=== PATIENT | female | born 1940 | race Caucasian/White ===

== ENCOUNTER 2019-11-24 07:38 | Inpatient (IN) | payer MEDICARE, BC ==
[2019-11-24] MEDS ORDERED: SODIUM CHLORIDE 0.9% 1,000 ML IV STA (07:58)
[2019-11-24] MEDS ORDERED: FUROSEMIDE 10 MG/ML 4 ML VIAL IV STA (07:58)
[2019-11-24] MEDS ORDERED: NITROGLYCERIN-D5W PMX 50 MG in DEXTROSE/WATER 1 250ML.BAG IV STA (07:58)
[2019-11-24] MEDS ORDERED: ASPIRIN 81 MG PO STA (07:59)
[2019-11-24] MEDS ORDERED: HEPARIN SODIUM,PORCINE 5,000 UNIT/ML 1 ML VIAL IV ONE (07:59)
[2019-11-24] MEDS ORDERED: NITROGLYCERIN SL TABS 0.4 MG TAB SUBLINGUAL PRN (07:59)
--- NOTE | 2019-11-24 08:03 | ED ---
General Adult HPI - General Chief complaint: Shortness of Breath Stated complaint: AFib Time Seen by Provider: 11/24/19 07:40 Source: patient, EMS Mode of arrival: EMS Limitations: no limitations - History of Present Illness Initial comments: Dictation was produced using [employer] dictation software. please excuse any grammatical, word or spelling errors. This patient was cared for during a federal and state declared state of emergency secondary to Covid 19 Chief Complaint: 79-year-old female past medical history of COPD, dyslipidemia and hypertension presents with dyspnea History of Present Illness: Patient is 71-year-old female she has been dealing with dyspnea for the last several months. Today her dyspnea was exponentially w orse. Her son called EMS. EMS was not available at time of patient evaluation. According to nurse received report from EMS patient has been having shortness of breath those acutely worsening over the last 2 days. Patient reports she has a history of COPD. Denies any fever, chills or night sweats. She does report that her lower extremity swelling. States that her symptoms are worse with lyin g flat. She does have some mild sharp chest pain is worse with deep inspiration. The ROS documented in this emergency department record has been reviewed and confirmed by me. Those systems with pertinent positive or negative responses have been documented in the HPI. All other systems are other negative and/or noncontributory. PHYSICAL EXAM: General Impression: Alert and oriented x3, dyspneic HEENT: Normocephalic atraumatic, extra-ocular movements intact, pupils equal and reactive to light bilaterally, mucous membranes moist. Cardiovascular: Heart regular rate and rhythm, no murmurs Chest: Tripoding, diffuse lung crackles, able to complete 3 word sentences Abdomen: abdomen soft, non-tender, non-distended, no organomegaly Musculoskeletal: Pulses present and equal in all extremities, 1+ pitting edema Motor: no focal deficits noted Neurological: CN II-XII grossly intact, no focal motor or sensory deficits noted Skin: Intact with no visualized rashes Psych: Anxious ED course: 79-year-old female with chief complaint of dyspnea. Vital signs upon arrival shows heart rate of 135, blood pressure 173/100. Clinical presentation concerning for acute decompensated heart failure. Plan care bedside ultrasound was performed showing diffuse lung rockets concerning for heart failure. Patient placed on BiPAP immediately. She is given Lasix and nitro glycerin. EKG concerning for atrial fibrillation with rapid ventricular rate. Patient denies any history of A. fib. She does not take any anticoagulation medications. Patient started on heparin. There is concern for new onset atrial fibrillation. Patient has elevated Chadsvasc2 score. X-rays show findings of congestive heart failure. Patient reevaluated after 2 hours of ER observation after administration of nitroglycerin. Patient is breathing much better. She still however tachycardic. Patient will be started on Cardizem. Patient admitted to cardiac telemetry. Cardiology consult. EKG interpretation: Ventricular rate 142, H fibrillation rapid ventricular rate, QRS 82, QTc 464. No NC prolongation, no QTC prolongation, no ST or T-wave changes noted. No old EKG for comparison - Related Data Allergies Allergy/AdvReac Type Severity Reaction Status Date / Time aspirin Allergy Rash/Hives Verified 11/24/19 07:58 shellfish derived [Shellfish] Allergy Rash/Hives Verified 11/24/19 07:58 Review of Systems ROS Statement: Those systems with pertinent positive or pertinent negative responses have been documented in the HPI. ROS Other: All systems not noted in ROS Statement are negative. Past Medical History Past Medical History: COPD, Hyperlipidemia, Hypertension Past Psychological History: No Psychological Hx Reported Smoking Status: Unknown if ever smoked Past Alcohol Use History: None Reported Past Drug Use History: None Reported General Exam Limitations: no limitations Course Vital Signs 11/24/19 11/24/19 11/24/19 07:50 07:54 08:34 Temperature 97.4 F L Pulse Rate 135 H 135 H Respiratory 22 20 22 Rate Blood Pressure 173/100 149/71 O2 Sat by Pulse 99 99 Oximetry Medical Decision Making - Lab Data Result diagrams: 11/24/19 08:40 11/24/19 08:40 Lab Results 11/24/19 11/24/19 11/24/19 Range/Units 08:40 08:40 08:40 WBC 8.3 (3.8-10.6) k/uL RBC 3.76 L (3.80-5.40) m/uL Hgb 10.3 L (11.4-16.0) gm/dL Hct 34.6 (34.0-46.0) % MCV 91.8 (80.0-100.0) fL MCH 27.3 (25.0-35.0) pg MCHC 29.7 L (31.0-37.0) g/dL RDW 14.8 (11.5-15.5) % Plt Count 385 (150-450) k/uL Neutrophils % 73 % Lymphocytes % 18 % Monocytes % 5 % Eosinophils % 2 % Basophils % 1 % Neutrophils # 6.1 (1.3-7.7) k/uL Lymphocytes # 1.5 (1.0-4.8) k/uL Monocytes # 0.5 (0-1.0) k/uL Eosinophils # 0.1 (0-0.7) k/uL Basophils # 0.1 (0-0.2) k/uL Hypochromasia Marked PT 12.2 H (9.0-12.0) sec INR 1.2 H (<1.2) APTT 61.0 H (22.0-30.0) sec Sodium 142 (137-145) mmol/L Potassium 4.2 (3.5-5.1) mmol/L Chloride 103 (98-107) mmol/L Carbon Dioxide 28 (22-30) mmol/L Anion Gap 11 mmol/L BUN 23 H (7-17) mg/dL Creatinine 1.01 (0.52-1.04) mg/dL Est GFR (CKD-EPI)AfAm 62 (>60 ml/min/1.73 sqM) Est GFR (CKD-EPI)NonAf 54 (>60 ml/min/1.73 sqM) Glucose 224 H (74-99) mg/dL Plasma Lactic Acid Jovanni (0.7-2.0) mmol/L Calcium 9.1 (8.4-10.2) mg/dL Magnesium 1.7 (1.6-2.3) mg/dL Total Bilirubin 0.4 (0.2-1.3) mg/dL AST 27 (14-36) U/L ALT 15 (4-34) U/L Alkaline Phosphatase 36 L (38-126) U/L NT-Pro-B Natriuret Pep pg/mL Total Protein 7.8 (6.3-8.2) g/dL Albumin 4.5 (3.5-5.0) g/dL 11/24/19 11/24/19 Range/Units 08:40 08:40 WBC (3.8-10.6) k/uL RBC (3.80-5.40) m/uL Hgb (11.4-16.0) gm/dL Hct (34.0-46.0) % MCV (80.0-100.0) fL MCH (25.0-35.0) pg MCHC (31.0-37.0) g/dL RDW (11.5-15.5) % Plt Count (150-450) k/uL Neutrophils % % Lymphocytes % % Monocytes % % Eosinophils % % Basophils % % Neutrophils # (1.3-7.7) k/uL Lymphocytes # (1.0-4.8) k/uL Monocytes # (0-1.0) k/uL Eosinophils # (0-0.7) k/uL Basophils # (0-0.2) k/uL Hypochromasia PT (9.0-12.0) sec INR (<1.2) APTT (22.0-30.0) sec Sodium (137-145) mmol/L Potassium (3.5-5.1) mmol/L Chloride (98-107) mmol/L Carbon Dioxide (22-30) mmol/L Anion Gap mmol/L BUN (7-17) mg/dL Creatinine (0.52-1.04) mg/dL Est GFR (CKD-EPI)AfAm (>60 ml/min/1.73 sqM) Est GFR (CKD-EPI)NonAf (>60 ml/min/1.73 sqM) Glucose (74-99) mg/dL Plasma Lactic Acid Jovanni 0.8 (0.7-2.0) mmol/L Calcium (8.4-10.2) mg/dL Magnesium (1.6-2.3) mg/dL Total Bilirubin (0.2-1.3) mg/dL AST (14-36) U/L ALT (4-34) U/L Alkaline Phosphatase (38-126) U/L NT-Pro-B Natriuret Pep 7190 pg/mL Total Protein (6.3-8.2) g/dL Albumin (3.5-5.0) g/dL Critical Care Time Critical Care Time: Yes Total Critical Care Time: 33 Disposition Clinical Impression: Heart failure, Afib Disposition: ADMITTED IP TO THIS HOSP Condition: Fair Referrals: Ajit Osman MD [Primary Care Provider] - 1-2 days Decision Time: 09:32
[2019-11-24] MEDS: HEPARIN SOD,PORK IN 0.45% NACL 25,000 UNIT in 0.45% NACL 1 250ML.BAG IV SCH (08:24)
[2019-11-24 08:55] LABS: Basophils # (A) 0.1 k/uL (0-0.2); Basophils % (A) 1 %; Eosinophils # (A) 0.1 k/uL (0-0.7); Eosinophils % (A) 2 %; HCT 34.6 % (34.0-46.0); HGB 10.3 gm/dL (11.4-16.0); Hypochromasia Marked; Lymphocytes # (A) 1.5 k/uL (1.0-4.8); Lymphocytes % (A) 18 %; MCH 27.3 pg (25.0-35.0); MCHC 29.7 g/dL (31.0-37.0); MCV 91.8 fL (80.0-100.0); Monocytes # (A) 0.5 k/uL (0-1.0); Monocytes % (A) 5 %; Neutrophils # (A) 6.1 k/uL (1.3-7.7); Neutrophils % (A) 73 %; Platelet Count 385 k/uL (150-450); RBC 3.76 m/uL (3.80-5.40); RDW 14.8 % (11.5-15.5); WBC 8.3 k/uL (3.8-10.6)
[2019-11-24 09:03] LABS: INR 1.2 (<1.2); Prothrombin Time 12.2 sec (9.0-12.0)
[2019-11-24 09:18] LABS: Albumin 4.5 g/dL (3.5-5.0); Calcium 9.1 mg/dL (8.4-10.2); Magnesium 1.7 mg/dL (1.6-2.3); Potassium 4.2 mmol/L (3.5-5.1); Total Bilirubin 0.4 mg/dL (0.2-1.3); Total Protein 7.8 g/dL (6.3-8.2)
--- NOTE | 2019-11-24 09:19 | XR ---
EXAMINATION TYPE: XR chest 1V portable DATE OF EXAM: 11/24/2019 COMPARISON: NONE HISTORY: Dyspnea, shortness breath TECHNIQUE: Single frontal view of the chest is obtained. FINDINGS: Patient is rotated however suspect the heart is enlarged. Prominence and central vasculari ty and interstitium is noted. There is no pneumothorax. Bibasilar increased density with blunting the costophrenic angles is noted. Aorta is dense. IMPRESSION: Correlate for congestive heart failure. There may be basilar effusions. Follow-up recomm ended.
[2019-11-24] MEDS ORDERED: DILTIAZEM 125 MG in SODIUM CHLORIDE 0.9% 100 ML IV SCH (09:30)
[2019-11-24] MEDS: METOPROLOL TARTRATE 50 MG TAB PO SCH (14:17)
--- NOTE | 2019-11-24 14:19 | P.HPIM ---
History of Present Illness patient is a pleasant 73-year-old female came in with compensative shortness of breath orthopnea has been going on for a few months. I'm unable to get much of the history from the patient has patient is on BiPAP. Patient is complaining of cough without any significant sputum production. Patient had any fever chills. Patient doesn't have any sick and past medical history of heart failure patient does have elevated the BMP along with the bilateral pleural effusions and pulmonary edema changes in the chest x-ray patient is found to be tachycardic as well appears to have A. fib with rapid ventricular rate was started on Cardizem which will be tapered down and weaned off by adding metoprolol. Patient was hypertensivearrival to ER because of which patient was started on nitroglycerin drip she denied any chest pain to me. Apparently on admission patient was having sharp chest pain with deep breathing, EKG did not show any acute ST-T wave changes but tachycardic which is probably A. fib SINUS tach with the PVCs. Review of Systems except for those mentioned above rest of the review of systems is negative unable to obtain much of the review of system because of her clinical condition Past Medical History Past Medical History: COPD, Hyperlipidemia, Hypertension Past Psychological History: No Psychological Hx Reported Smoking Status: Unknown if ever smoked Past Alcohol Use History: None Reported Past Drug Use History: None Reported Medications and Allergies Allergies Allergy/AdvReac Type Severity Reaction Status Date / Time aspirin Allergy Rash/Hives Verified 11/24/19 07:58 shellfish derived [Shellfish] Allergy Rash/Hives Verified 11/24/19 07:58 Physical Exam Vitals: Vital Signs Temp Pulse Resp BP Pulse Ox 11/24/19 14:02 111 H 18 112/53 99 11/24/19 13:27 125 H 18 117/81 99 11/24/19 11:00 103 H 18 117/69 100 11/24/19 10:30 114 H 22 96/61 100 11/24/19 10:00 113 H 20 110/70 100 11/24/19 09:30 124 H 12 127/70 99 11/24/19 09:00 125 H 20 149/71 98 11/24/19 08:34 135 H 22 149/71 99 11/24/19 08:30 123 H 140/72 99 11/24/19 08:00 131 H 29 H 173/100 100 11/24/19 07:54 20 11/24/19 07:50 97.4 F L 135 H 22 173/100 99 11/24/19 07:49 97 Intake and Output 11/23/19 11/24/19 11/24/19 22:59 06:59 14:59 Output Total 400 Balance -400 Output: Urine 400 Other: Weight 74.843 kg PHYSICAL EXAMINATION: GENERAL: The patient is alert and oriented x3,is in mild acute distress. Well de veloped, well nourished. on BiPAP HEENT: Pupils are round and equally reacting to light. EOMI. No scleral icterus. No conjunctival pallor. Normocephalic, atraumatic. No pharyngeal erythema. No thyromegaly. CARDIOVASCULAR: S1 and S2 present. No murmurs, rubs, or gallops. number does have JVD PULMONARY: bibasilar crackles crackles without any wheezing. ABDOMEN: Soft, nontender, nondistended, normoactive bowel sounds. No palpable organomegaly. MUSCULOSKELETAL: No joint swelling or deformity. EXTREMITIES: No cyanosis, clubbing, or pedal edema. NEUROLOGICAL: Gross neurological examination did not reveal any focal deficits. SKIN: No rashes. Results CBC & Chem 7: 11/24/19 08:40 11/24/19 08:40 Labs: Abnormal Lab Results - Last 24 Hours (Table) 11/24/19 11/24/19 11/24/19 Range/Units 08:40 08:40 08:40 RBC 3.76 L (3.80-5.40) m/uL Hgb 10.3 L (11.4-16.0) gm/dL MCHC 29.7 L (31.0-37.0) g/dL PT 12.2 H (9.0-12.0) sec INR 1.2 H (<1.2) APTT 61.0 H (22.0-30.0) sec BUN 23 H (7-17) mg/dL Glucose 224 H (74-99) mg/dL Alkaline Phosphatase 36 L (38-126) U/L Troponin I (0.000-0.034) ng/mL 11/24/19 11/24/19 Range/Units 08:40 13:48 RBC (3.80-5.40) m/uL Hgb (11.4-16.0) gm/dL MCHC (31.0-37.0) g/dL PT (9.0-12.0) sec INR (<1.2) APTT 32.0 H (22.0-30.0) sec BUN (7-17) mg/dL Glucose (74-99) mg/dL Alkaline Phosphatase (38-126) U/L Troponin I 0.057 H* (0.000-0.034) ng/mL Assessment and Plan Plan: -acute hypoxic respiratory failure most probably secondary to start failure exacerbation echocardiogram will be obtained.she is presently on BiPAP which will be weaned of elevated troponin probably second to heart failure and atrial fibrillation: Patient is on heparin drip. Cardiology was consulted patient received aspirin -Possible new onset atrial fibrillation with rapid ventricular rate: Patient was started on metoprolol enough Cardizem there is a concern started dysfunction. At present will be discontinued as well -Hypertension patient is presently hypotensive -hyperlipidemia
[2019-11-24] MEDS: HEPARIN SODIUM,PORCINE 5,000 UNIT/ML 1 ML VIAL IV PRN (15:33)
[2019-11-24 16:23] LABS: Glucose,Whole Blood 130 mg/dL (75-99)
[2019-11-24] MEDS ORDERED: ALBUTEROL NEBULIZED 2.5 MG/3 ML INHALATION PRN (17:18)
[2019-11-24] MEDS ORDERED: FLUTICASONE 50MCG/SPRAY NASAL 16GM EA NOSTRIL PRN (17:18)
[2019-11-24] MEDS: GLIMEPIRIDE 2 MG TAB PO SCH (17:43)
[2019-11-24 18:12] LABS: Allen Test Performed? Yes
[2019-11-24 18:14] LABS: ABG Base Excess 5.9 mmol/L; ABG HCO3 33 mmol/L (21-25); ABG Oxygen Saturation 97.6 % (94-97); ABG PH 7.26 (7.35-7.45); ABG PO2 103 mmHg (83-108); ABG TCO2 35 mmol/L (19-24)
[2019-11-24 18:18] LABS: ABG PCO2 75 mmHg (35-45)
[2019-11-24 20:12] LABS: Glucose,Whole Blood 160 mg/dL (75-99)
[2019-11-24] MEDS: PRAVASTATIN SODIUM 40 MG TAB PO SCH ×2 (20:44→22:36)
[2019-11-24] MEDS: FAMOTIDINE 20 MG TAB PO SCH ×2 (20:44→22:36)
[2019-11-24] MEDS ORDERED: FUROSEMIDE 10 MG/ML 4 ML VIAL IV SCH (21:00)
[2019-11-24] MEDS ORDERED: NON FORMULARY DRUG (Omega-3 Fatty Acids [Omega-3] 1,000 MG) PO SCH (21:00)
[2019-11-24] MEDS ORDERED: LISINOPRIL 10 MG TAB PO STA (21:54)
[2019-11-24] MEDS: INSULIN ASPART (NovoLOG) 100 UNIT/ML VIAL SQ SCH (22:00)
[2019-11-24] MEDS: FUROSEMIDE 100 MG in SODIUM CHLORIDE 0.9% 90 ML IV SCH (22:28)
[2019-11-25 05:59] LABS: Glucose,Whole Blood 65 mg/dL (75-99)
[2019-11-25] MEDS ORDERED: DEXTROSE 50% SYRINGE 50 ML IVP ONE (06:12)
[2019-11-25] MEDS: INSULIN ASPART (NovoLOG) 100 UNIT/ML VIAL SQ SCH ×4 (06:18→20:55)
[2019-11-25] MEDS: GLIMEPIRIDE 2 MG TAB PO SCH ×2 (06:18→16:08)
[2019-11-25 06:28] LABS: Glucose,Whole Blood 186 mg/dL (75-99)
[2019-11-25] MEDS: FAMOTIDINE 20 MG TAB PO SCH (07:44)
[2019-11-25] MEDS: FENOFIBRATE 160 MG TAB PO SCH (07:44)
[2019-11-25] MEDS: LISINOPRIL 10 MG TAB PO SCH (07:44)
[2019-11-25] MEDS: HEPARIN SOD,PORK IN 0.45% NACL 25,000 UNIT in 0.45% NACL 1 250ML.BAG IV SCH (07:45)
[2019-11-25] MEDS: FERROUS SULFATE 325 MG TAB PO SCH (07:45)
[2019-11-25] MEDS: LACTOBACILLUS ACIDOPH & BULGAR 1 EACH PACKET PO SCH (07:45)
[2019-11-25] MEDS: METOPROLOL TARTRATE 50 MG TAB PO SCH ×2 (07:45→20:59)
[2019-11-25] MEDS: ASPIRIN 81 MG PO SCH (07:45)
[2019-11-25] MEDS: IPRATROPIUM 0.5 MG/2.5 ML NEBU INHALATION SCH ×4 (08:16→20:25)
[2019-11-25] MEDS: FUROSEMIDE 100 MG in SODIUM CHLORIDE 0.9% 90 ML IV SCH ×3 (08:21→22:58)
[2019-11-25 08:35] LABS: HCT 33.3 % (34.0-46.0); HGB 9.7 gm/dL (11.4-16.0); Hypochromasia Marked; MCH 26.4 pg (25.0-35.0); MCHC 29.2 g/dL (31.0-37.0); MCV 90.6 fL (80.0-100.0); Mean Platelet Volume 7.4; Platelet Count 304 k/uL (150-450); RBC 3.67 m/uL (3.80-5.40); RDW 14.9 % (11.5-15.5); WBC 7.7 k/uL (3.8-10.6)
[2019-11-25 08:43] LABS: Calcium 9.1 mg/dL (8.4-10.2); Potassium 4.1 mmol/L (3.5-5.1)
[2019-11-25] MEDS ORDERED: CALCIUM CARBONATE PO SCH (09:00)
[2019-11-25] MEDS ORDERED: VITAMIN D3 PO SCH (09:00)
[2019-11-25] MEDS: HEPARIN SODIUM,PORCINE 5,000 UNIT/ML 1 ML VIAL IV PRN (09:31)
--- NOTE | 2019-11-25 09:40 | P.CNPUL ---
History of Present Illness Consult date: 11/25/19 Requesting physician: Jonah Dye Reason for consult: dyspnea Chief complaint: shortness of breath History of present illness: 79-year-old white female patient with known history of chronic obstructive pulmonary disease on home oxygen at 2-1/2 L/m, previous history of smoking, diabetes mellitus type 2, previous episode of pneumonia, hypertension, hyperlipidemia, GERD/reflux, with recent history of hospitalization at [facility] in the beginning of September for bilateral pneumonia, and small bilateral pleural effusions. Patient was treated with Rocephin and azithromycin during admission. On 11/24/2019 patient presented to this hospital for evaluation of shortness of breath. admission chest x-ray showed prominence and central vascularity and increased interstitium, and bilateral pleural effusions. she was hypoxic, she was placed on 6 L of oxygen and subsequently on BiPAP support at pressures of 12 and 5 and FiO2 of 40%. patient was in A. fib with RVR. lab work showed appointments on chronically 0.3, hemoglobin of 10.3, platelet count was 385, lymphocytes 1.5, INR is 1.2, electrolytes were within normal limits, B1 is 23, creatinine is 1.01, glucose was 224, plasma lactic acid was 0.8, troponin topped out at 0.075, proBNP was 7190, TSH was 0.328. she was started on IV Lasix at 40 mg every 12 hours which was subsequently changed to Lasix infusion at 10 mg per hour. Patient is in -3 L net fluid balance over the last 24 hours, this morning she is feeling better, breathing easier, remains on BiPAP support, and she would like to trial off the BiPAP support. echocardiogram is pending, COVID 19 testing is in progress, and the results are pending at this time. Review of Systems All systems: negative Constitutional: Denies chills, Denies fever Eyes: denies blurred vision, denies pain Ears, nose, mouth and throat: Denies headache, Denies sore throat Cardiovascular: Denies chest pain, Denies shortness of breath Respiratory: Reports dyspnea, Denies cough Gastrointestinal: Denies abdominal pain, Denies diarrhea, Denies nausea, Denies vomiting Genitourinary: Denies dysuria, Denies hematuria Musculoskeletal: Denies myalgias Integumentary: Denies pruritus, Denies rash Neurological: Denies numbness, Denies weakness Psychiatric: Denies anxiety, Denies depression Endocrine: Denies fatigue, Denies weight change Past Medical History Past Medical History: COPD, Diabetes Mellitus, Hyperlipidemia, Hypertension, Pneumonia History of Any Multi-Drug Resistant Organisms: None Reported Past Surgical History: Hysterectomy Past Anesthesia/Blood Transfusion Reactions: No Reported Reaction Past Psychological History: Depression Smoking Status: Former smoker Past Alcohol Use History: Rare Past Drug Use History: None Reported - Past Family History Father History Unknown: Yes Mother History Unknown: Yes Medications and Allergies Home Medications Medication Instructions Recorded Confirmed Type Albuterol Inhaler [Ventolin Hfa 1 - 2 puff INHALATION RT-Q4H PRN 11/24/19 11/24/19 History Inhaler] Aspirin EC [Ecotrin Low Dose] 81 mg PO DAILY 11/24/19 11/24/19 History Budesonide [Pulmicort Flexhaler] 1 puff INHALATION RT-DAILY 11/24/19 11/24/19 History C,E,Zinc,Copper 11/Czaph9o/Lut 1 cap PO DAILY 11/24/19 11/24/19 History [Ocuvite Adult 50 Plus Softgel] Calcium Carbonate/Vitamin D3 1 tab PO DAILY 11/24/19 11/24/19 History [Calcium 500-Vit D3 600 Tablet] Diltiazem HCl [Diltiazem HCl 24Hr 120 mg PO DAILY 11/24/19 11/24/19 History ER] Fenofibrate Nanocrystallized 145 mg PO DAILY 11/24/19 11/24/19 History [Fenofibrate] Ferrous Sulfate [Feosol] 325 mg PO DAILY 11/24/19 11/24/19 History Fluticasone Nasal [place] [Flonase 2 spr EA NOSTRIL DAILY PRN 11/24/19 11/24/19 History Nasal [place]] Glimepiride [Amaryl] 2 mg PO BID 11/24/19 11/24/19 History L.acidoph,Paracasei, B.lactis 1 cap PO DAILY 11/24/19 11/24/19 History [Probiotic] Lisinopril [Zestril] 10 mg PO DAILY 11/24/19 11/24/19 History Devon-3 Fatty Acids [Devon-3] 1,000 mg PO BID 11/24/19 11/24/19 History Pravastatin Sodium [Pravachol] 40 mg PO HS 11/24/19 11/24/19 History Ranitidine HCl [Zantac] 150 mg PO BID 11/24/19 11/24/19 History Tiotropium [place] [Spiriva] 1 cap INHALATION RT-DAILY 11/24/19 11/24/19 History metFORMIN HCL [Glucophage] 1,000 mg PO BID 11/24/19 11/24/19 History Allergies Allergy/AdvReac Type Severity Reaction Status Date / Time aspirin Allergy Rash/Hives Verified 11/24/19 16:04 shellfish derived [Shellfish] Allergy Rash/Hives Verified 11/24/19 16:04 Physical Exam Vitals: Vital Signs Temp Pulse Pulse Resp BP BP Pulse Ox 11/25/19 08:30 108 H 11/25/19 08:16 108 H 11/25/19 07:32 125 H 39 H 11/25/19 07:30 97.7 F 125 H 39 H 172/72 97 11/25/19 04:00 97.6 F 69 24 141/58 95 11/25/19 00:00 97.1 F L 97 27 H 130/60 98 11/24/19 20:00 88 40 H 160/77 96 11/24/19 18:18 28 H 98 11/24/19 17:41 39 H 97 11/24/19 16:54 28 H 98 11/24/19 15:22 88 34 H 11/24/19 15:20 97.7 F 88 34 H 114/76 97 11/24/19 14:31 110/54 11/24/19 14:02 111 H 18 112/53 99 11/24/19 13:27 125 H 18 117/81 99 11/24/19 11:00 103 H 18 117/69 100 11/24/19 10:30 114 H 22 96/61 100 11/24/19 10:00 113 H 20 110/70 100 11/24/19 09:30 124 H 12 127/70 99 Intake and Output 11/24/19 11/25/19 11/25/19 22:59 06:59 14:59 Intake Total 74.064 640.881 Output Total 300 2440 Balance -225.936 -2440 640.881 Intake: IV 10 Invasive Line 2 10 Intake, IV Titration 64.064 280.881 Amount Furosemide 100 mg In 98.833 Sodium Chloride 0.9% 90 ml @ 10 MG/HR 10 mls/hr IV .Q10H [facility]ENCES[facility] Rx#: [id number] Heparin Sod,Pork in 0.45% 64.064 182.048 NaCl 25,000 unit In 0.45 % NaCl 1 250ml.bag @ 12 UNITS/KG/HR 8.981 mls/hr IV .Q24H [facility]ENCESLAO Rx#: [id number] Oral 360 Output: Urine 300 2440 Uretheral (M[place]all) 1000 Other: Voiding Method Indwelling Catheter Indwelling Catheter Indwelling Catheter # Voids 1 1 # Bowel Movements 1 Weight 74.843 kg 75.3 kg GENERAL EXAM: Alert, very pleasant, 71-year-old white female, on BiPAP support, currently with pressures of 12 and 5, and FiO2 of 40% comfortable in no apparent distress. HEAD: Normocephalic/atraumatic. EYES: Normal reaction of pupils, equal size. Conjunctiva pink, sclera white. NOSE: Clear with pink turbinates. THROAT: No erythema or exudates. NECK: No masses, no JVD, no thyroid enlargement, no adenopathy. CHEST: No chest wall deformity. Symmetrical expansion. LUNGS: diminished air entry with no crackles, wheeze, rhonchi or dullness. CVS: Irregular rate and rhythm, normal S1 and S2, no gallops, no murmurs, no rubs ABDOMEN: Soft, nontender. No hepatosplenomegaly, normal bowel sounds, no guarding or rigidity. EXTREMITIES: No clubbing, no edema, no cyanosis, 2+ pulses and upper and lower extremities. MUSCULOSKELETAL: Muscle strength and tone normal. SPINE: No scoliosis or deformity SKIN: No rashes CENTRAL NERVOUS SYSTEM: Alert and oriented -3. No focal deficits, tone is normal in all 4 extremities. PSYCHIATRIC: Alert and oriented -3. Appropriate affect. Intact judgment and insight. Results - Laboratory Findings CBC and BMP: 11/25/19 07:48 11/25/19 07:58 ABG ABG pH 7.26 (7.35-7.45) L 11/24/19 17:51 ABG pCO2 75 mmHg (35-45) H* 11/24/19 17:51 ABG pO2 103 mmHg (83-108) 11/24/19 17:51 ABG O2 Saturation 97.6 % (94-97) H 11/24/19 17:51 PT/INR, D-dimer PT 12.2 sec (9.0-12.0) H 11/24/19 08:40 INR 1.2 (<1.2) H 11/24/19 08:40 Abnormal lab findings: Abnormal Labs 11/24/19 11/24/19 11/24/19 08:40 08:40 08:40 RBC 3.76 L Hgb 10.3 L Hct MCHC 29.7 L PT 12.2 H INR 1.2 H APTT 61.0 H ABG pH ABG pCO2 ABG HCO3 ABG Total CO2 ABG O2 Saturation Chloride Carbon Dioxide BUN 23 H Creatinine Glucose 224 H POC Glucose (mg/dL) Alkaline Phosphatase 36 L Troponin I TSH 11/24/19 11/24/19 11/24/19 08:40 13:48 16:21 RBC Hgb Hct MCHC PT INR APTT 32.0 H ABG pH ABG pCO2 ABG HCO3 ABG Total CO2 ABG O2 Saturation Chloride Carbon Dioxide BUN Creatinine Glucose POC Glucose (mg/dL) 130 H Alkaline Phosphatase Troponin I 0.057 H* TSH 11/24/19 11/24/19 11/24/19 16:50 17:51 20:11 RBC Hgb Hct MCHC PT INR APTT ABG pH 7.26 L ABG pCO2 75 H* ABG HCO3 33 H ABG Total CO2 35 H ABG O2 Saturation 97.6 H Chloride Carbon Dioxide BUN Creatinine Glucose POC Glucose (mg/dL) 160 H Alkaline Phosphatase Troponin I 0.070 H* TSH 11/24/19 11/24/19 11/25/19 22:24 22:24 05:57 RBC Hgb Hct MCHC PT INR APTT 49.3 H ABG pH ABG pCO2 ABG HCO3 ABG Total CO2 ABG O2 Saturation Chloride Carbon Dioxide BUN Creatinine Glucose POC Glucose (mg/dL) 65 L Alkaline Phosphatase Troponin I 0.075 H* TSH 11/25/19 11/25/19 11/25/19 06:24 07:48 07:48 RBC 3.67 L Hgb 9.7 L Hct 33.3 L MCHC 29.2 L PT INR APTT 36.5 H ABG pH ABG pCO2 ABG HCO3 ABG Total CO2 ABG O2 Saturation Chloride Carbon Dioxide BUN Creatinine Glucose POC Glucose (mg/dL) 186 H Alkaline Phosphatase Troponin I TSH 11/25/19 07:58 RBC Hgb Hct MCHC PT INR APTT ABG pH ABG pCO2 ABG HCO3 ABG Total CO2 ABG O2 Saturation Chloride 96 L Carbon Dioxide 33 H BUN 26 H Creatinine 1.06 H Glucose 140 H POC Glucose (mg/dL) Alkaline Phosphatase Troponin I TSH 0.328 L - Diagnostic Findings Chest x-ray: report reviewed, image reviewed Additional studies: EKG reviewed Assessment and Plan Plan: Assessment: #1. Acute on chronic hypoxic and hypercapnic respiratory failure related to acute exacerbation of congestive heart failure with unknown LV function #2. Elevated troponins, likely related to acute exacerbation of CHF #3. New onset A. fib with RVR #4. Recent hospitalization for bibasilar pneumonia and bilateral pleural effusions at [facility] in the beginning of October 2019 #5. Advanced COPD with chronic hypoxemic respiratory failure, and patient wears and a half liters of oxygen at home on a regular basis #6. Hypertension #7. Hyperlipidemia #8. Diabetes mellitus #9. GERD/reflux #10. History of tobacco abuse, currently in remission plan: We'll continue diuretics, patient is maintaining negative fluid balance, breathi ng easier, we will trial her on high flow nasal cannula, she may use BiPAP support as needed and at bedtime. Continue breathing treatments, COVID 19 status is pending, cardiology is following, she remains in A. fib, she is anticoagulated with IV heparin. Complaints of chest pain, no significant cough or congestion. We'll obtain follow-up chest x-ray in the morning, acute intake and output, daily labs, echocardiogram is pending. I performed a history & physical examination of the patient and discussed their management with my nurse practitioner, Sarah Panda. I reviewed the nurse practitioner's note and agree with the documented findings and plan of care. Lung sounds are positive for diminished breath sounds. The findings and the impression was discussed with the patient. I attest to the documentation by the nurse practitioner. Time with Patient: Greater than 30
[2019-11-25 10:02] LABS: T4, Free (Free Thyroxine) 1.67 ng/dL (0.78-2.19)
--- NOTE | 2019-11-25 10:56 | P.CRDCN ---
History of Present Illness Consult date: 11/25/19 Consult reason: congestive heart failure History of present illness: This is a 79-year-old female with history of hyperlipidemia, hyper tension, COPD with home O2, prior history of smoking, diabetes, GERD, who had a recent hospitalization at [facility] in the beginning of September for bilateral pneumonia. She presented to the hospital here on this admission with symptoms of progressively worsening shortness of breath. Her chest x-ray showed bilateral pleural effusions and congestive heart failure. Patient was quite hy poxic on admission and was placed on 6 L of oxygen, ultimately put on BiPAP support. Her EKG on presentation here showed atrial fibrillation with a rapid ventricular response, this appears to be new for the patient. Blood pressure 140/50 with a heart rate in the 90s, respirations 20, she's 95% on BiPAP this morning, white blood cell count 8.3, hemoglobin 10.3, platelet count 385. Sodium 142, potassium 4.2, BUN 23, creatinine 1.0. Magnesium 1.7. BNP 7190, troponin 0.05, 0.07, 0.07. Patient was initiated on an IV Lasix drip and continues to be on it at this time. She's also on IV heparin. She does have a negative fluid balance of 3 L over the past 24 hours. She does state overall that she's feeling much better this morning. Patient is also being tested for Covid which is pending. Past Medical History Past Medical History: COPD, Diabetes Mellitus, Hyperlipidemia, Hypertension, Pneumonia History of Any Multi-Drug Resistant Organisms: None Reported Past Surgical History: Hysterectomy Past Anesthesia/Blood Transfusion Reactions: No Reported Reaction Past Psychological History: Depression Smoking Status: Former smoker Past Alcohol Use History: Rare Past Drug Use History: None Reported - Past Family History Father History Unknown: Yes Mother History Unknown: Yes Medications and Allergies Home Medications Medication Instructions Recorded Confirmed Type Albuterol Inhaler [Ventolin Hfa 1 - 2 puff INHALATION RT-Q4H PRN 11/24/19 11/24/19 History Inhaler] Aspirin EC [Ecotrin Low Dose] 81 mg PO DAILY 11/24/19 11/24/19 History Budesonide [Pulmicort Flexhaler] 1 puff INHALATION RT-DAILY 11/24/19 11/24/19 History C,E,Zinc,Copper 11/Vyhcm9j/Lut 1 cap PO DAILY 11/24/19 11/24/19 History [Ocuvite Adult 50 Plus Softgel] Calcium Carbonate/Vitamin D3 1 tab PO DAILY 11/24/19 11/24/19 History [Calcium 500-Vit D3 600 Tablet] Diltiazem HCl [Diltiazem HCl 24Hr 120 mg PO DAILY 11/24/19 11/24/19 History ER] Fenofibrate Nanocrystallized 145 mg PO DAILY 11/24/19 11/24/19 History [Fenofibrate] Ferrous Sulfate [Feosol] 325 mg PO DAILY 11/24/19 11/24/19 History Fluticasone Nasal Pioneer [Flonase 2 spr EA NOSTRIL DAILY PRN 11/24/19 11/24/19 History Nasal Pioneer] Glimepiride [Amaryl] 2 mg PO BID 11/24/19 11/24/19 History L.acidoph,Paracasei, B.lactis 1 cap PO DAILY 11/24/19 11/24/19 History [Probiotic] Lisinopril [Zestril] 10 mg PO DAILY 11/24/19 11/24/19 History [place]-3 Fatty Acids [[place]-3] 1,000 mg PO BID 11/24/19 11/24/19 History Pravastatin Sodium [Pravachol] 40 mg PO HS 11/24/19 11/24/19 History Ranitidine HCl [Zantac] 150 mg PO BID 11/24/19 11/24/19 History Tiotropium [place] [Spiriva] 1 cap INHALATION RT-DAILY 11/24/19 11/24/19 History metFORMIN HCL [Glucophage] 1,000 mg PO BID 11/24/19 11/24/19 History Allergies Allergy/AdvReac Type Severity Reaction Status Date / Time aspirin Allergy Rash/Hives Verified 11/24/19 16:04 shellfish derived [Shellfish] Allergy Rash/Hives Verified 11/24/19 16:04 Physical Exam Vitals: Vital Signs Temp Pulse Pulse Resp BP BP Pulse Ox 11/25/19 08:30 108 H 11/25/19 08:16 108 H 11/25/19 07:32 125 H 39 H 11/25/19 07:30 97.7 F 125 H 39 H 172/72 97 11/25/19 04:00 97.6 F 69 24 141/58 95 05/26/20 00:00 97.1 F L 97 27 H 130/60 98 11/24/19 20:00 88 40 H 160/77 96 11/24/19 18:18 28 H 98 11/24/19 17:41 39 H 97 11/24/19 16:54 28 H 98 11/24/19 15:22 88 34 H 11/24/19 15:20 97.7 F 88 34 H 114/76 97 11/24/19 14:31 110/54 11/24/19 14:02 111 H 18 112/53 99 11/24/19 13:27 125 H 18 117/81 99 11/24/19 11:00 103 H 18 117/69 100 Intake and Output 11/24/19 11/25/19 11/25/19 22:59 06:59 14:59 Intake Total 74.064 659.965 Output Total 300 2440 Balance -225.936 -2440 659.965 Intake: IV 10 Invasive Line 2 10 Intake, IV Titration 64.064 299.965 Amount Furosemide 100 mg In 98.833 Sodium Chloride 0.9% 90 ml @ 10 MG/HR 10 mls/hr IV .Q10H [facility] Rx#: [id number] Heparin Sod,Pork in 0.45% 64.064 201.132 NaCl 25,000 unit In 0.45 % NaCl 1 250ml.bag @ 12 UNITS/KG/HR 8.981 mls/hr IV .Q24H [facility] Rx#: [id number] Oral 360 Output: Urine 300 2440 Uretheral (Mccall) 1000 Other: Voiding Method Indwelling Catheter Indwelling Catheter Indwelling Catheter # Voids 1 1 # Bowel Movements 1 Weight 74.843 kg 75.3 kg GENERAL EXAM: Sleepy, very pleasant, 71-year-old white female, on BiPAP support, currently with pressures of 12 and 5, and FiO2 of 40% comfortable in no apparent distress. HEAD: Normocephalic/atraumatic. EYES: Normal reaction of pupils, equal size. Conjunctiva pink, sclera white. NOSE: Clear with pink turbinates. THROAT: No erythema or exudates. NECK: No masses, no JVD, no thyroid enlargement, no adenopathy. CHEST: No chest wall deformity. Symmetrical expansion. LUNGS: diminished air entry with no crackles, wheeze, rhonchi or dullness. CVS: Irregular rate and rhythm, normal S1 and S2, no gallops, no murmurs, no rubs ABDOMEN: Soft, nontender. No hepatosplenomegaly, normal bowel sounds, no guarding or rigidity. EXTREMITIES: No clubbing, no edema, no cyanosis, 2+ pulses and upper and lower extremities. MUSCULOSKELETAL: Muscle strength and tone normal. SPINE: No scoliosis or deformity SKIN: No rashes CENTRAL NERVOUS SYSTEM: Alert and oriented -3. No focal deficits, tone is normal in all 4 extremities. PSYCHIATRIC: Alert and oriented -3. Appropriate affect. Intact judgment and insight. Results 11/25/19 07:48 11/25/19 07:58 Cardiac Enzymes 11/24/19 11/24/19 Range/Units 16:50 22:24 Troponin I 0.070 H* 0.075 H* (0.000-0.034) ng/mL Coagulation 11/24/19 11/24/19 11/25/19 Range/Units 13:48 22:24 07:48 APTT 32.0 H 49.3 H 36.5 H (22.0-30.0) sec CBC 11/25/19 Range/Units 07:48 WBC 7.7 (3.8-10.6) k/uL RBC 3.67 L (3.80-5.40) m/uL Hgb 9.7 L (11.4-16.0) gm/dL Hct 33.3 L (34.0-46.0) % Plt Count 304 (150-450) k/uL Comprehensive Metabolic Panel 11/25/19 Range/Units 07:58 Sodium 141 (137-145) mmol/L Potassium 4.1 (3.5-5.1) mmol/L Chloride 96 L (98-107) mmol/L Carbon Dioxide 33 H (22-30) mmol/L BUN 26 H (7-17) mg/dL Creatinine 1.06 H (0.52-1.04) mg/dL Glucose 140 H (74-99) mg/dL Calcium 9.1 (8.4-10.2) mg/dL Current Medications Generic Name Dose Route Start Last Admin Trade Name Freq PRN Reason Stop Dose Admin Albuterol Sulfate 2.5 mg 11/24/19 17:18 Ventolin Nebulized INHALATION RT-Q4H PRN Shortness Of Breath Aspirin 81 mg 11/25/19 09:00 11/25/19 07:45 Aspirin PO 81 mg DAILY [facility] Administration Famotidine 20 mg 11/24/19 21:00 11/25/19 07:44 Pepcid PO 20 mg BID [facility] Administration Fenofibrate 160 mg 11/25/19 09:00 11/25/19 07:44 Lofibra PO 160 mg DAILY [facility] Administration Ferrous Sulfate 325 mg 11/25/19 09:00 11/25/19 07:45 Feosol PO 325 mg DAILY [facility] Administration Fluticasone Propionate 1 puff 11/25/19 08:00 Flovent 44 Mcg Inhaler INHALATION RT-BID [facility] Fluticasone Propionate 2 spray 11/24/19 17:18 Flonase Nasal Pioneer EA NOSTRIL DAILY PRN Allergy Symptoms Glimepiride 2 mg 11/24/19 17:30 11/25/19 06:18 Amaryl PO Not Given BID-W/MEALS [facility] Heparin Sodium (Porcine) 0 unit 11/24/19 07:59 11/25/19 09:31 Heparin IV 1,882.5 unit PER PROTOCOL PRN Administration Low PTT Protocol Heparin Sodium/Sodium Chloride 250 mls @ 8.981 mls/hr 11/24/19 08:00 11/25/19 09:27 25,000 unit/ Sodium Chloride IV 17 units/kg/hr .Q24H [facility] 12.723 mls/hr Titration Protocol 12 UNITS/KG/HR Furosemide 100 mg/ Sodium 100 mls @ 10 mls/hr 11/24/19 22:00 11/25/19 08:21 Chloride IV 10 mg/hr .Q10H [facility] 10 mls/hr Administration 10 MG/HR Insulin Aspart 0 unit 11/24/19 21:00 11/25/19 06:18 Novolog SQ Not Given ACHS [facility] Protocol Ipratropium [place] 0.5 mg 11/25/19 08:00 11/25/19 08:16 Atrovent Nebulized INHALATION 0.5 mg RT-QID [facility] Administration Lactobacillus Acidoph/Bulgar[place] 1 each 11/25/19 09:00 11/25/19 07:45 Lactinex PO 1 each DAILY [facility] Administration Lisinopril 10 mg 11/25/19 09:00 11/25/19 07:44 Zestril PO 10 mg DAILY [facility] Administration Metoprolol Tartrate 50 mg 11/24/19 21:00 11/25/19 07:45 Lopressor PO 50 mg BID [facility] Administration Nitroglycerin 0.4 mg 11/24/19 07:59 11/24/19 08:04 Nitrostat SUBLINGUAL 0.4 mg Q5M PRN Administration Chest Pain Pravastatin Sodium 40 mg 11/24/19 21:00 11/24/19 22:36 Pravachol PO 40 mg HS [facility] Administration Intake and Output 11/24/19 11/25/19 11/25/19 22:59 06:59 14:59 Intake Total 74.064 659.965 Output Total 300 2440 Balance -225.936 -2440 659.965 Intake: IV 10 Invasive Line 2 10 Intake, IV Titration 64.064 299.965 Amount Furosemide 100 mg In 98.833 Sodium Chloride 0.9% 90 ml @ 10 MG/HR 10 mls/hr IV .Q10H [facility] Rx#: [id number] Heparin Sod,Pork in 0.45% 64.064 201.132 NaCl 25,000 unit In 0.45 % NaCl 1 250ml.bag @ 12 UNITS/KG/HR 8.981 mls/hr IV .Q24H [facility] Rx#: [id number] Oral 360 Output: Urine 300 2440 Uretheral (Mccall) 1000 Other: Voiding Method Indwelling Catheter Indwelling Catheter Indwelling Catheter # Voids 1 1 # Bowel Movements 1 Weight 74.843 kg 75.3 kg 11/25/19 07:48 11/25/19 07:58 EKG Interpretations (text) EKG on presentation here showed atrial fibrillation with moderately rapid ventricular response Assessment and Plan Plan: Assessment and plan #1 congestive heart failure, LV function unknown #2 atrial fibrillation with rapid ventricular response, appears to be of new onset for the patient. 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 Continue IV heparin and look into oral anticoagulation for the patient. Further recommendations to follow. DNP note has been reviewed, I agree with a documented findings and plan of care. Patient was seen and examined.
--- NOTE | 2019-11-25 11:36 | ECHOF ---
Referral Reason:chf MEASUREMENTS -------- HEIGHT: 165.1 cm WEIGHT: 75.3 kg BP: 141/58 IVSd: 1.6 cm (0.6 - 1.1) LVIDd: 3.7 cm (3.9 - 5.3) LVPWd: 1.4 cm (0.6 - 1.1) IVSs: 2.0 cm LVIDs: 3.0 cm LVPWs: 1.6 cm LA Diam: 4.3 cm (2.7 - 3.8) RVIDd: 3.4 cm (< 3.3) Ao Diam: 2.9 cm (2.0 - 3.7) AV Cusp: 1.9 cm (1.5 - 2.6) EPSS: 1.2 cm MV E Ernst: 1.21 m/s MV DecT: 125 ms MV A Ernst: 0.73 m/s MV E/A Ratio: 1.67 RAP: 15.00 mmHg RVSP: 56.79 mmHg MV EF SLOPE: 92.21 mm/s (70 - 150) MV EXCURSION: 11.11 mm (> 18.000) FINDINGS -------- Undetermined rhythm. This was a technically difficult study with suboptimal views. The left ventricular size is normal. There is moderate concentric left ventricular hypertrophy. O verall left ventricular systolic function is mild-moderately impaired with, an EF between 40 - 45 %. Septal hypokinesis The right ventricle is mildly enlarged. The left atrium is moderately dilated. The right atrium was not well visualized. Lipomatous Hypertrophy of the atrial septum is present There is mild aortic valve sclerosis. The mitral valve leaflets are mildly thickened. Mild mitral annular calcification present. Modera te mitral regurgitation is present. Moderate tricuspid regurgitation present. There is severe pulmonary hypertension. The right ventr icular systolic pressure, as measured by Doppler, is 56.79mmHg. Trace/mild (physiologic) pulmonic regurgitation. The aortic root size is normal. Normal inferior vena cava with less than 50% inspiratory collapse consistent with estimated right atr ial pressure of 15 mmHg. There is no pericardial effusion. CONCLUSIONS -------- 1. Undetermined rhythm. 2. This was a technically difficult study with suboptimal views. 3. The left ventricular size is normal. 4. There is moderate concentric left ventricular hypertrophy. 5. Overall left ventricular systolic function is mild-moderately impaired with, an EF between 40 - 45 %. 6. The right ventricle is mildly enlarged. 7. The left atrium is moderately dilated. 8. The right atrium was not well visualized. 9. Lipomatous Hypertrophy of the atrial septum is present 10. There is mild aortic valve sclerosis. 11. The mitral valve leaflets are mildly thickened. 12. Mild mitral annular calcification present. 13. Moderate mitral regurgitation is present. 14. Moderate tricuspid regurgitation present. 15. There is severe pulmonary hypertension. 16. The right ventricular systolic pressure, as measured by Doppler, is 56.79mmHg. 17. Trace/mild (physiologic) pulmonic regurgitation. 18. The aortic root size is normal. 19. Normal inferior vena cava with less than 50% inspiratory collapse consistent with estimated right atrial pressure of 15 mmHg. 20. There is no pericardial effusion. [employer]: Rachna Willett RDCS
[2019-11-25 11:37] LABS: Glucose,Whole Blood 184 mg/dL (75-99)
[2019-11-25] MEDS: FLUTICASONE 44 MCG INHALER INHALATION SCH (11:39)
--- NOTE | 2019-11-25 13:26 | P.PN ---
Subjective 73-year-old female admitted for new onset atrial fibrillation and heart failure exacerbation patient's EF is 40-45%. Patient has a moderate pulmonary hypertension on echo cardiac exam. Patient is being started on Eliquis after verification with insurance. had significant urine output since yesterday patient on IV Lasix drip at this time this is being managed by cardiologypatient is presently in 6 L of oxygen Constitutional: Denied any fatigue denied any fever. Cardio vascular: denied any chest pain, palpitations Gastrointestinal denied any nausea vomiting Pulmonary:as mentioned in HPI Neurologic denied any new focal deficits All inpatient medications were reviewed and appropriate changes in these medications as dictated in the interval history and assessment and plan. Objective - Vital Signs Vital signs: Vital Signs Temp 97.7 F 11/25/19 07:30 Pulse 104 H 11/25/19 11:50 Resp 39 H 11/25/19 07:32 BP 172/72 11/25/19 07:30 Pulse Ox 97 11/25/19 07:30 Intake & Output 11/24/19 11/25/19 11/25/19 18:59 06:59 18:59 Intake Total 78.647 899.965 Output Total 700 2440 750 Balance -621.353 -2440 149.965 Weight 74.843 kg 75.3 kg Intake: IV 10 Invasive Line 2 10 Intake, IV Titration 68.647 299.965 Amount Diltiazem 125 mg In 4.583 Sodium Chloride 0.9% 100 ml @ 10 MG/HR 10 mls/hr IV .[id number] [facility] Rx#: [id number] Furosemide 100 mg In 98.833 Sodium Chloride 0.9% 90 ml @ 10 MG/HR 10 mls/hr IV .Q10H [facility] Rx#: [id number] Heparin Sod,Pork in 0.45% 64.064 201.132 NaCl 25,000 unit In 0.45 % NaCl 1 250ml.bag @ 12 UNITS/KG/HR 8.981 mls/hr IV .Q24H [facility] Rx#: [id number] Oral 600 Output: Urine 700 2440 750 Uretheral (Mccall) 1000 Other: Voiding Method Bedpan Indwelling Catheter Indwelling Catheter # Voids 1 1 # Bowel Movements 1 1 - Exam PHYSICAL EXAMINATION: GENERAL: The patient is alert and oriented x3, not in any acute distress. Well developed, well nourished. HEENT: Pupils are round and equally reacting to light. EOMI. No scleral icterus. No conjunctival pallor. Normocephalic, atraumatic. No pharyngeal erythema. No thyromegaly. CARDIOVASCULAR: S1 and S2 present. No murmurs, rubs, or gallops. PULMONARY: Chest is clear to auscultation, no wheezing or crackles. ABDOMEN: Soft, nontender, nondistended, normoactive bowel sounds. No palpable organomegaly. MUSCULOSKELETAL: No joint swelling or deformity. EXTREMITIES: No cyanosis, clubbing, or pedal edema. NEUROLOGICAL: Gross neurological examination did not reveal any focal deficits. SKIN: No rashes. - Labs CBC & Chem 7: 11/25/19 07:48 11/25/19 07:58 Labs: Abnormal Lab Results - Last 24 Hours (Table) 11/24/19 11/24/19 11/24/19 Range/Units 13:48 16:21 16:50 RBC (3.80-5.40) m/uL Hgb (11.4-16.0) gm/dL Hct (34.0-46.0) % MCHC (31.0-37.0) g/dL APTT 32.0 H (22.0-30.0) sec ABG pH (7.35-7.45) ABG pCO2 (35-45) mmHg ABG HCO3 (21-25) mmol/L ABG Total CO2 (19-24) mmol/L ABG O2 Saturation (94-97) % Chloride (98-107) mmol/L Carbon Dioxide (22-30) mmol/L BUN (7-17) mg/dL Creatinine (0.52-1.04) mg/dL Glucose (74-99) mg/dL POC Glucose (mg/dL) 130 H (75-99) mg/dL Troponin I 0.070 H* (0.000-0.034) ng/mL TSH (0.465-4.680) mIU/L 11/24/19 11/24/19 11/24/19 Range/Units 17:51 20:11 22:24 RBC (3.80-5.40) m/uL Hgb (11.4-16.0) gm/dL Hct (34.0-46.0) % MCHC (31.0-37.0) g/dL APTT (22.0-30.0) sec ABG pH 7.26 L (7.35-7.45) ABG pCO2 75 H* (35-45) mmHg ABG HCO3 33 H (21-25) mmol/L ABG Total CO2 35 H (19-24) mmol/L ABG O2 Saturation 97.6 H (94-97) % Chloride (98-107) mmol/L Carbon Dioxide (22-30) mmol/L BUN (7-17) mg/dL Creatinine (0.52-1.04) mg/dL Glucose (74-99) mg/dL POC Glucose (mg/dL) 160 H (75-99) mg/dL Troponin I 0.075 H* (0.000-0.034) ng/mL TSH (0.465-4.680) mIU/L 11/24/19 11/25/19 11/25/19 Range/Units 22:24 05:57 06:24 RBC (3.80-5.40) m/uL Hgb (11.4-16.0) gm/dL Hct (34.0-46.0) % MCHC (31.0-37.0) g/dL APTT 49.3 H (22.0-30.0) sec ABG pH (7.35-7.45) ABG pCO2 (35-45) mmHg ABG HCO3 (21-25) mmol/L ABG Total CO2 (19-24) mmol/L ABG O2 Saturation (94-97) % Chloride (98-107) mmol/L Carbon Dioxide (22-30) mmol/L BUN (7-17) mg/dL Creatinine (0.52-1.04) mg/dL Glucose (74-99) mg/dL POC Glucose (mg/dL) 65 L 186 H (75-99) mg/dL Troponin I (0.000-0.034) ng/mL TSH (0.465-4.680) mIU/L 11/25/19 11/25/19 11/25/19 Range/Units 07:48 07:48 07:58 RBC 3.67 L (3.80-5.40) m/uL Hgb 9.7 L (11.4-16.0) gm/dL Hct 33.3 L (34.0-46.0) % MCHC 29.2 L (31.0-37.0) g/dL APTT 36.5 H (22.0-30.0) sec ABG pH (7.35-7.45) ABG pCO2 (35-45) mmHg ABG HCO3 (21-25) mmol/L ABG Total CO2 (19-24) mmol/L ABG O2 Saturation (94-97) % Chloride 96 L (98-107) mmol/L Carbon Dioxide 33 H (22-30) mmol/L BUN 26 H (7-17) mg/dL Creatinine 1.06 H (0.52-1.04) mg/dL Glucose 140 H (74-99) mg/dL POC Glucose (mg/dL) (75-99) mg/dL Troponin I (0.000-0.034) ng/mL TSH 0.328 L (0.465-4.680) mIU/L 11/25/19 Range/Units 11:35 RBC (3.80-5.40) m/uL Hgb (11.4-16.0) gm/dL Hct (34.0-46.0) % MCHC (31.0-37.0) g/dL APTT (22.0-30.0) sec ABG pH (7.35-7.45) ABG pCO2 (35-45) mmHg ABG HCO3 (21-25) mmol/L ABG Total CO2 (19-24) mmol/L ABG O2 Saturation (94-97) % Chloride (98-107) mmol/L Carbon Dioxide (22-30) mmol/L BUN (7-17) mg/dL Creatinine (0.52-1.04) mg/dL Glucose (74-99) mg/dL POC Glucose (mg/dL) 184 H (75-99) mg/dL Troponin I (0.000-0.034) ng/mL TSH (0.465-4.680) mIU/L Assessment and Plan Plan: -acute hypoxic respiratory failure most probably secondary to congestive heart failure chronic systolic dysfunction with acute exacerbation. Patient is presently of BiPAP on 6 L of oxygen. Patient does have troponin elevationRobert because of CHF patient is presently on IV heparin will be switched Eliquis patient is presently on IV Lasix drip congestive heart failure chronic systolic dysfunction EF of around 40-45% - new onset atrial fibrillation with rapid ventricular rate: Patient was started on metoprolol heart rate is fairly well controlled at this time anti-correlation as mentioned above -Hypertension \ -hyperlipidemia -type 2 diabetes mellitus -Gastric esophageal reflux disease
[2019-11-25] MEDS ORDERED: METOPROLOL TARTRATE 50 MG TAB PO STA (16:11)
[2019-11-25] MEDS: APIXABAN 5 MG TAB PO SCH ×2 (16:26→20:59)
[2019-11-25 16:32] LABS: Glucose,Whole Blood 205 mg/dL (75-99)
[2019-11-25 20:24] LABS: Glucose,Whole Blood 137 mg/dL (75-99)
[2019-11-25] MEDS: PRAVASTATIN SODIUM 40 MG TAB PO SCH (20:59)
[2019-11-25] MEDS ORDERED: APIXABAN 5 MG TAB PO SCH (21:00)
[2019-11-25] MEDS: ALPRAZolam 0.25 MG TAB PO SCH (22:59)
[2019-11-26] MEDS: ALPRAZolam 0.25 MG TAB PO SCH ×2 (04:37→09:18)
[2019-11-26 06:21] LABS: Glucose,Whole Blood 99 mg/dL (75-99)
[2019-11-26] MEDS: INSULIN ASPART (NovoLOG) 100 UNIT/ML VIAL SQ SCH ×4 (06:26→21:08)
[2019-11-26] MEDS: GLIMEPIRIDE 2 MG TAB PO SCH ×3 (06:48→17:01)
[2019-11-26] MEDS: FUROSEMIDE 100 MG in SODIUM CHLORIDE 0.9% 90 ML IV SCH ×2 (07:30→16:30)
[2019-11-26 07:33] LABS: HCT 31.7 % (34.0-46.0); HGB 9.5 gm/dL (11.4-16.0); Hypochromasia Marked; MCH 26.5 pg (25.0-35.0); MCV 88.4 fL (80.0-100.0); Mean Platelet Volume 7.1; Platelet Count 298 k/uL (150-450); RBC 3.58 m/uL (3.80-5.40); RDW 14.6 % (11.5-15.5); WBC 7.6 k/uL (3.8-10.6)
[2019-11-26 07:40] LABS: Calcium 9.1 mg/dL (8.4-10.2); Potassium 3.8 mmol/L (3.5-5.1)
[2019-11-26] MEDS: FLUTICASONE 44 MCG INHALER INHALATION SCH ×2 (07:46→20:07)
[2019-11-26] MEDS: IPRATROPIUM 0.5 MG/2.5 ML NEBU INHALATION SCH ×4 (07:46→20:02)
[2019-11-26] MEDS: FERROUS SULFATE 325 MG TAB PO SCH (09:36)
[2019-11-26] MEDS: FAMOTIDINE 20 MG TAB PO SCH (09:36)
[2019-11-26] MEDS: FENOFIBRATE 160 MG TAB PO SCH (09:36)
[2019-11-26] MEDS: LISINOPRIL 10 MG TAB PO SCH (09:36)
[2019-11-26] MEDS: METOPROLOL TARTRATE 50 MG TAB PO SCH ×3 (09:36→21:08)
[2019-11-26] MEDS: ASPIRIN 81 MG PO SCH (09:37)
[2019-11-26] MEDS: LACTOBACILLUS ACIDOPH & BULGAR 1 EACH PACKET PO SCH (09:37)
[2019-11-26] MEDS: APIXABAN 5 MG TAB PO SCH ×2 (09:37→21:08)
[2019-11-26 11:58] LABS: Glucose,Whole Blood 142 mg/dL (75-99)
--- NOTE | 2019-11-26 12:24 | P.PN ---
Subjective 73-year-old female admitted for new onset atrial fibrillation and heart failure exacerbation patient's EF is 40-45%. Patient has a moderate pulmonary hypertension on echo cardiac exam. Patient is being started on Eliquis after verification with insurance. had significant urine output since yesterday patient on IV Lasix drip at this time this is being managed by cardiologypatient is presently in 6 L of oxygen. 11/26/2019 Patient required BiPAP yesterday. Presently on 6 L of oxygen today. Patient remains on IV Lasix drip creatinine remained stable. Repeat chest x-ray is pending patient feels really tired and weak Constitutional: denied any fever. Cardio vascular: denied any chest pain, palpitations Gastrointestinal denied any nausea vomiting Pulmonary:as mentioned in HPI Neurologic denied any new focal deficits All inpatient medications were reviewed and appropriate changes in these medications as dictated in the interval history and assessment and plan. Objective - Vital Signs Vital signs: Vital Signs Temp 97.7 F 11/26/19 08:00 Pulse 90 11/26/19 11:53 Resp 24 11/26/19 08:00 BP 153/84 11/26/19 08:00 Pulse Ox 97 11/26/19 08:00 Intake & Output 11/25/19 11/26/19 11/26/19 18:59 06:59 18:59 Intake Total 1020.132 326 335.333 Output Total 750 1860 600 Balance 270.132 -1534 -264.667 Weight 75.3 kg 75.6 kg Intake: IV 40 30 10 Invasive Line 2 20 30 10 Invasive Line 3 20 Intake, IV Titration 380.132 66 85.333 Amount Furosemide 100 mg In 179.000 66 85.333 Sodium Chloride 0.9% 90 ml @ 10 MG/HR 10 mls/hr IV .Q10H [facility] Rx#: [id number] Heparin Sod,Pork in 0.45% 201.132 NaCl 25,000 unit In 0.45 % NaCl 1 250ml.bag @ 12 UNITS/KG/HR 8.981 mls/hr IV .Q24H [facility] Rx#: [id number] Oral 600 230 240 Output: Urine 750 1860 600 Uretheral (Mccall) 450 600 Other: Voiding Method Indwelling Catheter Indwelling Catheter Indwelling Catheter # Bowel Movements 1 - Exam PHYSICAL EXAMINATION: GENERAL: The patient is alert and oriented x3, not in any acute distress. Well developed, well nourished. Patient appears like severely fatigued and weak HEENT: Pupils are round and equally reacting to light. EOMI. No scleral icterus. No conjunctival pallor. Normocephalic, atraumatic. No pharyngeal erythema. No thyromegaly. CARDIOVASCULAR: S1 and S2 present. No murmurs, rubs, or gallops. PULMONARY: Chest is clear to auscultation, no wheezing or crackles. ABDOMEN: Soft, nontender, nondistended, normoactive bowel sounds. No palpable organomegaly. MUSCULOSKELETAL: No joint swelling or deformity. EXTREMITIES: No cyanosis, clubbing, or pedal edema. NEUROLOGICAL: Gross neurological examination did not reveal any focal deficits. SKIN: No rashes. - Labs CBC & Chem 7: 11/26/19 06:55 11/26/19 06:55 Labs: Abnormal Lab Results - Last 24 Hours (Table) 11/25/19 11/25/19 11/25/19 Range/Units 16:08 16:30 20:22 RBC (3.80-5.40) m/uL Hgb (11.4-16.0) gm/dL Hct (34.0-46.0) % MCHC (31.0-37.0) g/dL APTT 59.2 H (22.0-30.0) sec Chloride (98-107) mmol/L Carbon Dioxide (22-30) mmol/L BUN (7-17) mg/dL Creatinine (0.52-1.04) mg/dL POC Glucose (mg/dL) 205 H 137 H (75-99) mg/dL 11/26/19 11/26/19 11/26/19 Range/Units 06:55 06:55 11:57 RBC 3.58 L (3.80-5.40) m/uL Hgb 9.5 L (11.4-16.0) gm/dL Hct 31.7 L (34.0-46.0) % MCHC 30.0 L (31.0-37.0) g/dL APTT (22.0-30.0) sec Chloride 91 L (98-107) mmol/L Carbon Dioxide 37 H (22-30) mmol/L BUN 31 H (7-17) mg/dL Creatinine 1.07 H (0.52-1.04) mg/dL POC Glucose (mg/dL) 142 H (75-99) mg/dL Assessment and Plan Plan: -acute hypoxic respiratory failure most probably secondary to congestive heart failure chronic systolic dysfunction with acute exacerbation. Patient is presently of BiPAP on 6 L of oxygen. Patient does have troponin elevationRobert because of CHF patient is presently on IV heparin will be switched Eliquis patient is presently on IV Lasix drip congestive heart failure chronic systolic dysfunction EF of around 40-45% - new onset atrial fibrillation with rapid ventricular rate: Patient was started on metoprolol heart rate is fairly well controlled, patient is on Eliquis for anticoagulation -Hypertension \ -hyperlipidemia -type 2 diabetes mellitus -Gastric esophageal reflux disease -Sick euthyroid syndrome for which patient will need repeat TSH in about a month
--- NOTE | 2019-11-26 14:01 | P.PN ---
Subjective Progress Note Date: 11/26/19 Principal diagnosis: shortness of breath 79-year-old white female patient with known history of chronic obstructive pulmonary disease on home oxygen at 2-1/2 L/m, previous history of smoking, diabetes mellitus type 2, previous episode of pneumonia, hypertension, hyperlipidemia, GERD/reflux, with recent history of hospitalization at [facility] in the beginning of September for bilateral pneumonia, and small bilateral pleural effusions. Patient was treated with Rocephin and azithromycin during admission. On 11/24/2019 patient presented to this hospital for evaluation of shortness of breath. admission chest x-ray showed prominence and central vascularity and increased interstitium, and bilateral pleural effusions. she was hypoxic, she was placed on 6 L of oxygen and subsequently on BiPAP support at pressures of 12 and 5 and FiO2 of 40%. patient was in A. fib with RVR. lab work showed appointments on chronically 0.3, hemoglobin of 10.3, platelet count was 385, lymphocytes 1.5, INR is 1.2, electrolytes were within normal limits, B1 is 23, creatinine is 1.01, glucose was 224, plasma lactic acid was 0.8, troponin topped out at 0.075, proBNP was 7190, TSH was 0.328. she was started on IV Lasix at 40 mg every 12 hours which was subsequently changed to Lasix infusion at 10 mg per hour. Patient is in -3 L net fluid balance over the last 24 hours, this morning she is feeling better, breathing easier, remains on BiPAP support, and she would like to trial off the BiPAP support. echocardiogram is pending, COVID 19 testing is in progress, and the results are pending at this time. On 11/26/2019 patient seen in follow-up in the selective care unit. She is awake and alert, remains on BiPAP support, with pressures 12/5, and FiO2 of 40%, her pulse ox is 99%, patient has been tolerating trials off the BiPAP support on high flow nasal cannula. Patient remains on IV Lasix drip at 10 mg per hour, IV 0.9 normal saline at 5 ML per hour, remains dyspneic, patient has been and 1.2 L negative fluid balance over the last 24 hours. monitor technician still shows atrial fibrillation with the better controlled rate, patient is on oral metoprolol 50 mg twice daily, and Eliquis Objective - Vital Signs Vital signs: Vital Signs Temp 97.7 F 11/26/19 12:45 Pulse 96 11/26/19 12:45 Resp 24 11/26/19 12:45 BP 146/62 11/26/19 12:45 Pulse Ox 99 11/26/19 12:45 Intake & Output 11/25/19 11/26/19 11/26/19 18:59 06:59 18:59 Intake Total 1020.070 442 1710.333 Output Total 750 1860 600 Balance 270.132 -1534 425.333 Weight 75.3 kg 75.6 kg Intake: IV 40 30 100 Furosemide 100 mg In 80 Sodium Chloride 0.9% 90 ml @ 10 MG/HR 10 mls/hr IV .Q10H [facility] Rx#: [id number] Invasive Line 2 20 30 20 Invasive Line 3 20 Intake, IV Titration 380.132 66 85.333 Amount Furosemide 100 mg In 179.000 66 85.333 Sodium Chloride 0.9% 90 ml @ 10 MG/HR 10 mls/hr IV .Q10H [facility] Rx#: [id number] Heparin Sod,Pork in 0.45% 201.132 NaCl 25,000 unit In 0.45 % NaCl 1 250ml.bag @ 12 UNITS/KG/HR 8.981 mls/hr IV .Q24H [facility] Rx#: [id number] Oral 600 230 840 Output: Urine 750 1860 600 Uretheral (Mccall) 450 600 Other: Voiding Method Indwelling Catheter Indwelling Catheter Indwelling Catheter # Bowel Movements 1 - Exam GENERAL EXAM: Alert, very pleasant, 71-year-old white female, on BiPAP support, currently with pressures of 12 and 5, and FiO2 of 40% comfortable in no apparent distress. HEAD: Normocephalic/atraumatic. EYES: Normal reaction of pupils, equal size. Conjunctiva pink, sclera white. NOSE: Clear with pink turbinates. THROAT: No erythema or exudates. NECK: No masses, no JVD, no thyroid enlargement, no adenopathy. CHEST: No chest wall deformity. Symmetrical expansion. LUNGS: diminished air entry with no crackles, wheeze, rhonchi or dullness. CVS: Irregular rate and rhythm, normal S1 and S2, no gallops, no murmurs, no rubs ABDOMEN: Soft, nontender. No hepatosplenomegaly, normal bowel sounds, no guarding or rigidity. EXTREMITIES: No clubbing, no edema, no cyanosis, 2+ pulses and upper and lower extremities. MUSCULOSKELETAL: Muscle strength and tone normal. SPINE: No scoliosis or deformity SKIN: No rashes CENTRAL NERVOUS SYSTEM: Alert and oriented -3. No focal deficits, tone is normal in all 4 extremities. PSYCHIATRIC: Alert and oriented -3. Appropriate affect. Intact judgment and insight. - Labs CBC & Chem 7: 11/26/19 06:55 11/26/19 06:55 Labs: Abnormal Lab Results - Last 24 Hours (Table) 11/25/19 11/25/19 11/25/19 Range/Units 16:08 16:30 20:22 RBC (3.80-5.40) m/uL Hgb (11.4-16.0) gm/dL Hct (34.0-46.0) % MCHC (31.0-37.0) g/dL APTT 59.2 H (22.0-30.0) sec Chloride (98-107) mmol/L Carbon Dioxide (22-30) mmol/L BUN (7-17) mg/dL Creatinine (0.52-1.04) mg/dL POC Glucose (mg/dL) 205 H 137 H (75-99) mg/dL 11/26/19 11/26/19 11/26/19 Range/Units 06:55 06:55 11:57 RBC 3.58 L (3.80-5.40) m/uL Hgb 9.5 L (11.4-16.0) gm/dL Hct 31.7 L (34.0-46.0) % MCHC 30.0 L (31.0-37.0) g/dL APTT (22.0-30.0) sec Chloride 91 L (98-107) mmol/L Carbon Dioxide 37 H (22-30) mmol/L BUN 31 H (7-17) mg/dL Creatinine 1.07 H (0.52-1.04) mg/dL POC Glucose (mg/dL) 142 H (75-99) mg/dL Assessment and Plan Plan: Assessment: #1. Acute on chronic hypoxic and hypercapnic respiratory failure related to acute exacerbation of congestive heart failure with unknown LV function #2. Elevated troponins, likely related to acute exacerbation of CHF #3. New onset A. fib with RVR #4. Recent hospitalization for bibasilar pneumonia and bilateral pleural effusions at [facility] in the beginning of October 2019 #5. Advanced COPD with chronic hypoxemic respiratory failure, and patient wears and a half liters of oxygen at home on a regular basis #6. Hypertension #7. Hyperlipidemia #8. Diabetes mellitus #9. GERD/reflux #10. History of tobacco abuse, currently in remission plan: Continue current medical treatment, continue BiPAP support, and IV diuretics, patient is in negative fluid balance, follow-up chest x-ray today is pending, patient can be given trials off the BiPAP support for meals and is needed during the day. Remains in A. fib, but the rate is better controlled, continue with oral anticoagulation rate control medications per cardiology recommendations. Same inhalers and nebulized treatments. we'll follow I performed a history & physical examination of the patient and discussed their management with my nurse practitioner, Sarah Panda. I reviewed the nurse practitioner's note and agree with the documented findings and plan of care. Lung sounds are positive for diminished breath sounds. The findings and the impression was discussed with the patient. I attest to the documentation by the nurse practitioner. Time with Patient: Less than 30
--- NOTE | 2019-11-26 15:05 | XR ---
EXAMINATION TYPE: XR chest 2V DATE OF EXAM: 11/26/2019 COMPARISON: 11/24/2019 TECHNIQUE: PA and lateral views submitted. HISTORY: Shortness of breath FINDINGS: Heart is enlarged and is bilateral consolidation and pleural effusion with diffuse interstitial patte rn. No pneumothorax. Arthropathy of the shoulders. Hypertrophic and degenerative change of the spine with curvature. IMPRESSION: 1. Stable bilateral infiltrate and pleural effusion correlate for CHF.
--- NOTE | 2019-11-26 15:45 | P.PN ---
Subjective Progress Note Date: 11/26/19 This is a 79-year-old female with history of hyperlipidemia, hypertension, COPD with home O2, prior history of smoking, diabetes, GERD, who had a recent hospitalization at [facility] in the beginning of September for bilateral pneumonia. She presented to the hospital here on this admis alonzo with symptoms of progressively worsening shortness of breath. Her chest x- ray showed bilateral pleural effusions and congestive heart failure. Patient was quite hypoxic on admission and was placed on 6 L of oxygen, ultimately put on BiPAP support. Her EKG on presentation here showed atrial fibrillation with a rapid ventricular response, this appears to be new for the patient. Blood pressure 140/50 with a heart rate in the 90s, respirations 20, she's 95% on BiPAP this morning, white blood cell count 8.3, hemoglobin 10.3, platelet count 385. Sodium 142, potassium 4.2, BUN 23, creatinine 1.0. Magnesium 1.7. BNP 7190, troponin 0.05, 0.07, 0.07. Patient was initiated on an IV Lasix drip and continues to be on it at this time. She's also on IV heparin. She does have a negative fluid balance of 3 L over the past 24 hours. She does state overall that she's feeling much better this morning. Patient is also being tested for Covid which is pending. 11/26/2019 Patient was seen and examined this morning sitting up in the chair at bedside. Awake and alert, continues to be on IV Lasix drip. Negative fluid balance over the past 24 hours. Heart rate maintains in good control, atrial fibrillation. Objective - Vital Signs Vital signs: Vital Signs Temp 97.7 F 11/26/19 12:45 Pulse 96 11/26/19 12:45 Resp 24 11/26/19 12:45 BP 146/62 11/26/19 12:45 Pulse Ox 99 11/26/19 12:45 Intake & Output 11/25/19 11/26/19 11/26/19 18:59 06:59 18:59 Intake Total 1020.174 995 5042.333 Output Total 750 1860 600 Balance 270.132 -1534 425.333 Weight 75.3 kg 75.6 kg Intake: IV 40 30 100 Furosemide 100 mg In 80 Sodium Chloride 0.9% 90 ml @ 10 MG/HR 10 mls/hr IV .Q10H [facility] Rx#: [id number] Invasive Line 2 20 30 20 Invasive Line 3 20 Intake, IV Titration 380.132 66 85.333 Amount Furosemide 100 mg In 179.000 66 85.333 Sodium Chloride 0.9% 90 ml @ 10 MG/HR 10 mls/hr IV .Q10H [facility] Rx#: [id number] Heparin Sod,Pork in 0.45% 201.132 NaCl 25,000 unit In 0.45 % NaCl 1 250ml.bag @ 12 UNITS/KG/HR 8.981 mls/hr IV .Q24H [facility] Rx#: [id number] Oral 600 230 840 Output: Urine 750 1860 600 Uretheral (Mccall) 450 600 Other: Voiding Method Indwelling Catheter Indwelling Catheter Indwelling Catheter # Bowel Movements 1 - Exam GENERAL EXAM: Alert, very pleasant, 71-year-old white female, on BiPAP support, currently with pressures of 12 and 5, and FiO2 of 40% comfortable in no apparent distress. HEAD: Normocephalic/atraumatic. EYES: Normal reaction of pupils, equal size. Conjunctiva pink, sclera white. NOSE: Clear with pink turbinates. THROAT: No erythema or exudates. NECK: No masses, no JVD, no thyroid enlargement, no adenopathy. CHEST: No chest wall deformity. Symmetrical expansion. LUNGS: diminished air entry with no crackles, wheeze, rhonchi or dullness. CVS: Irregular rate and rhythm, normal S1 and S2, no gallops, no murmurs, no rubs ABDOMEN: Soft, nontender. No hepatosplenomegaly, normal bowel sounds, no guarding or rigidity. EXTREMITIES: No clubbing, no edema, no cyanosis, 2+ pulses and upper and lower extremities. MUSCULOSKELETAL: Muscle strength and tone normal. SPINE: No scoliosis or deformity SKIN: No rashes CENTRAL NERVOUS SYSTEM: Alert and oriented -3. No focal deficits, tone is normal in all 4 extremities. PSYCHIATRIC: Alert and oriented -3. Appropriate affect. Intact judgment and insight. - Labs CBC & Chem 7: 11/26/19 06:55 11/26/19 06:55 Labs: Abnormal Lab Results - Last 24 Hours (Table) 11/25/19 11/25/19 11/25/19 Range/Units 16:08 16:30 20:22 RBC (3.80-5.40) m/uL Hgb (11.4-16.0) gm/dL Hct (34.0-46.0) % MCHC (31.0-37.0) g/dL APTT 59.2 H (22.0-30.0) sec Chloride (98-107) mmol/L Carbon Dioxide (22-30) mmol/L BUN (7-17) mg/dL Creatinine (0.52-1.04) mg/dL POC Glucose (mg/dL) 205 H 137 H (75-99) mg/dL 11/26/19 11/26/19 11/26/19 Range/Units 06:55 06:55 11:57 RBC 3.58 L (3.80-5.40) m/uL Hgb 9.5 L (11.4-16.0) gm/dL Hct 31.7 L (34.0-46.0) % MCHC 30.0 L (31.0-37.0) g/dL APTT (22.0-30.0) sec Chloride 91 L (98-107) mmol/L Carbon Dioxide 37 H (22-30) mmol/L BUN 31 H (7-17) mg/dL Creatinine 1.07 H (0.52-1.04) mg/dL POC Glucose (mg/dL) 142 H (75-99) mg/dL Assessment and Plan Plan: Assessment and plan #1 congestive heart failure, LV function unknown #2 atrial fibrillation with rapid ventricular response, appears to be of new onset for the patient. 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 We will recommend to continue current IV Lasix drip for 24 hours. Check lytes BUN and creatinine in the morning. Continue to monitor patient's accurate intake and output and daily weights. DNP note has been reviewed, I agree with a documented findings and plan of care. Patient was seen and examined.
[2019-11-26 16:39] LABS: Glucose,Whole Blood 112 mg/dL (75-99)
[2019-11-26] MEDS: POTASSIUM CHLORIDE ER 20 MEQ TAB.ER PO SCH (17:01)
[2019-11-26 20:38] LABS: Glucose,Whole Blood 127 mg/dL (75-99)
[2019-11-26] MEDS: PRAVASTATIN SODIUM 40 MG TAB PO SCH (21:08)
[2019-11-27] MEDS: ALPRAZolam 0.25 MG TAB PO SCH ×2 (01:21→12:58)
[2019-11-27 06:15] LABS: Glucose,Whole Blood 131 mg/dL (75-99)
[2019-11-27] MEDS: INSULIN ASPART (NovoLOG) 100 UNIT/ML VIAL SQ SCH ×4 (06:27→20:50)
[2019-11-27] MEDS: FUROSEMIDE 100 MG in SODIUM CHLORIDE 0.9% 90 ML IV SCH (06:27)
[2019-11-27 07:18] LABS: Calcium 9.2 mg/dL (8.4-10.2); Potassium 3.5 mmol/L (3.5-5.1)
[2019-11-27 07:19] LABS: Appearance,Urine Clear (Clear); Bacteria,Urine Rare /hpf; Bilirubin,Urine Negative (Negative); Blood,Urine Trace (Negative); Color,Urine Light Yellow; Glucose,Urine (UA) Negative (Negative); Ketones,Urine Negative (Negative); Leukocyte Esterase,Urine Moderate (Negative); Mucus,Urine Rare /hpf; Nitrite,Urine Negative (Negative); PH, Urine 7.5 (5.0-8.0); Protein,Urine Negative (Negative); RBC,Urine 10 /hpf (0-5); Specific Gravity,Urine 1.007 (1.001-1.035); Urobilinogen,Urine <2.0 mg/dL (<2.0); WBC,Urine 12 /hpf (0-5)
[2019-11-27] MEDS: IPRATROPIUM 0.5 MG/2.5 ML NEBU INHALATION SCH ×4 (08:15→22:02)
[2019-11-27] MEDS: FLUTICASONE 44 MCG INHALER INHALATION SCH ×2 (08:16→22:04)
[2019-11-27 09:47] LABS: ABG Base Excess 26.1 mmol/L; ABG PH 7.45 (7.35-7.45); ABG PO2 78 mmHg (83-108); ABG TCO2 52 mmol/L (19-24); Allen Test Performed? Yes
[2019-11-27 09:51] LABS: ABG HCO3 50 mmol/L (21-25); ABG PCO2 73 mmHg (35-45)
--- NOTE | 2019-11-27 11:07 | P.PN ---
Subjective Progress Note Date: 11/27/19 This is a 79-year-old female with history of hyperlipidemia, hypertension, COPD with home O2, prior history of smoking, diabetes, GERD, who had a recent hospitalization at [facility] in the beginning of September for bilateral pneumonia. She presented to the hospital here on this admis alonzo with symptoms of progressively worsening shortness of breath. Her chest x- ray showed bilateral pleural effusions and congestive heart failure. Patient was quite hypoxic on admission and was placed on 6 L of oxygen, ultimately put on BiPAP support. Her EKG on presentation here showed atrial fibrillation with a rapid ventricular response, this appears to be new for the patient. Blood pressure 140/50 with a heart rate in the 90s, respirations 20, she's 95% on BiPAP this morning, white blood cell count 8.3, hemoglobin 10.3, platelet count 385. Sodium 142, potassium 4.2, BUN 23, creatinine 1.0. Magnesium 1.7. BNP 7190, troponin 0.05, 0.07, 0.07. Patient was initiated on an IV Lasix drip and continues to be on it at this time. She's also on IV heparin. She does have a negative fluid balance of 3 L over the past 24 hours. She does state overall that she's feeling much better this morning. Patient is also being tested for Covid which is pending. 11/26/2019 Patient was seen and examined this morning sitting up in the chair at bedside. Awake and alert, continues to be on IV Lasix drip. Negative fluid balance over the past 24 hours. Heart rate maintains in good control, atrial fibrillation. 11/27/2019 Patient was seen and examined this morning, unresponsive today. She had blood gases done this morning, pH 7.4, pCO2 73, pO2 78, HCO3 50, total CO2 50, sodium 141, potassium 3.5, BUN 34, creatinine 1.04. She is a no code patient, they have actually requested the family to come in this morning. Objective - Vital Signs Vital signs: Vital Signs Temp 97.6 F 11/27/19 08:00 Pulse 118 H 11/27/19 08:35 Resp 16 11/27/19 08:00 BP 140/70 11/27/19 08:00 Pulse Ox 96 11/27/19 08:00 Intake & Output 11/26/19 11/27/1911/26/20 18:59 06:59 18:59 Intake Total 1125.333 265 Output Total 600 1100 Balance 525.333 -835 Weight 75.5 kg Intake: IV 110 165 0.9 45 Furosemide 100 mg In 80 90 Sodium Chloride 0.9% 90 ml @ 10 MG/HR 10 mls/hr IV .Q10H [facility] Rx#: [id number] Invasive Line 2 30 30 Intake, IV Titration 175.333 100 Amount Furosemide 100 mg In 175.333 100 Sodium Chloride 0.9% 90 ml @ 10 MG/HR 10 mls/hr IV .Q10H [facility] Rx#: [id number] Oral 840 Output: Urine 600 1100 Uretheral (Mccall) 600 Other: Voiding Method Indwelling Catheter Indwelling Catheter - Exam GENERAL EXAM: Alert, very pleasant, 71-year-old white female, unresponsive, short of breath HEAD: Normocephalic/atraumatic. EYES: Normal reaction of pupils, equal size. Conjunctiva pink, sclera white. NOSE: Clear with pink turbinates. THROAT: No erythema or exudates. NECK: No masses, no JVD, no thyroid enlargement, no adenopathy. CHEST: No chest wall deformity. Symmetrical expansion. LUNGS: diminished air entry with no crackles, wheeze, rhonchi or dullness. CVS: Irregular rate and rhythm, normal S1 and S2, no gallops, no murmurs, no rubs ABDOMEN: Soft, nontender. No hepatosplenomegaly, normal bowel sounds, no guarding or rigidity. EXTREMITIES: No clubbing, no edema, no cyanosis, 2+ pulses and upper and lower extremities. MUSCULOSKELETAL: Muscle strength and tone normal. SPINE: No scoliosis or deformity SKIN: No rashes CENTRAL NERVOUS SYSTEM: Alert and oriented -3. No focal deficits, tone is normal in all 4 extremities. PSYCHIATRIC: Unresponsive - Labs CBC & Chem 7: 11/26/19 06:55 11/27/19 06:28 Labs: Abnormal Lab Results - Last 24 Hours (Table) 11/26/19 11/26/19 11/26/19 Range/Units 11:57 16:38 20:36 ABG pCO2 (35-45) mmHg ABG pO2 (83-108) mmHg ABG HCO3 (21-25) mmol/L ABG Total CO2 (19-24) mmol/L Chloride (98-107) mmol/L Carbon Dioxide (22-30) mmol/L BUN (7-17) mg/dL Glucose (74-99) mg/dL POC Glucose (mg/dL) 142 H 112 H 127 H (75-99) mg/dL Urine Blood (Negative) Ur Leukocyte Esterase (Negative) Urine RBC (0-5) /hpf Urine WBC (0-5) /hpf Urine Bacteria (None) /hpf Urine Mucus (None) /hpf 11/27/19 11/27/19 11/27/19 Range/Units 06:14 06:28 06:30 ABG pCO2 (35-45) mmHg ABG pO2 (83-108) mmHg ABG HCO3 (21-25) mmol/L ABG Total CO2 (19-24) mmol/L Chloride 86 L (98-107) mmol/L Carbon Dioxide 43 H* (22-30) mmol/L BUN 34 H (7-17) mg/dL Glucose 125 H (74-99) mg/dL POC Glucose (mg/dL) 131 H (75-99) mg/dL Urine Blood Trace H (Negative) Ur Leukocyte Esterase Moderate H (Negative) Urine RBC 10 H (0-5) /hpf Urine WBC 12 H (0-5) /hpf Urine Bacteria Rare H (None) /hpf Urine Mucus Rare H (None) /hpf 11/27/19 Range/Units 09:44 ABG pCO2 73 H* (35-45) mmHg ABG pO2 78 L (83-108) mmHg ABG HCO3 50 H* (21-25) mmol/L ABG Total CO2 52 H (19-24) mmol/L Chloride (98-107) mmol/L Carbon Dioxide (22-30) mmol/L BUN (7-17) mg/dL Glucose (74-99) mg/dL POC Glucose (mg/dL) (75-99) mg/dL Urine Blood (Negative) Ur Leukocyte Esterase (Negative) Urine RBC (0-5) /hpf Urine WBC (0-5) /hpf Urine Bacteria (None) /hpf Urine Mucus (None) /hpf Assessment and Plan Plan: Assessment and plan #1 congestive heart failure, LV function unknown #2 atrial fibrillation with rapid ventricular response, appears to be of new onset for the patient. 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 machine mover to oral diuretics. Overall the patient's prognosis is poor, family has been called in to come and see the patient. DNP note has been reviewed, I agree with a documented findings and plan of care. Patient was seen and examined.
[2019-11-27 11:24] LABS: Glucose,Whole Blood 134 mg/dL (75-99)
[2019-11-27] MEDS: METOPROLOL TARTRATE 50 MG TAB PO SCH ×3 (13:04→20:48)
[2019-11-27] MEDS: ASPIRIN 81 MG PO SCH (13:04)
[2019-11-27] MEDS: FENOFIBRATE 160 MG TAB PO SCH (13:04)
[2019-11-27] MEDS: LISINOPRIL 10 MG TAB PO SCH (13:04)
[2019-11-27] MEDS: FAMOTIDINE 20 MG TAB PO SCH ×2 (13:04→13:05)
[2019-11-27] MEDS: FERROUS SULFATE 325 MG TAB PO SCH (13:05)
[2019-11-27] MEDS: APIXABAN 5 MG TAB PO SCH ×2 (13:05→20:48)
[2019-11-27] MEDS: LACTOBACILLUS ACIDOPH & BULGAR 1 EACH PACKET PO SCH (13:05)
--- NOTE | 2019-11-27 13:12 | CDI ---
Documentation Clarification Form Date: 11/27/2019 01:05:40 PM From: Mildred Villar RN, CCDS Admit Date: 11/24/2019 09:30:00 AM Patient Name: Elaina Pabon Visit Number: [id number] ATTENTION: The Clinical Documentation Specialists (CDI) and [facility] Coding Staff appreciate your assistance in clarifying documentation. Please respond to the clarification below the line at the bottom and electronically sign. The CDI & [facility] Coding staff will review the response and follow-up if needed. Please note: Queries are made part of the Legal Health Record. If you have any questions, please contact the author of this message via ITS. Dr. Emmanuel Daley New Onset Atrial Fibrillation is documented in the H&P, Consults, and Progress notes and requires further specificity. History/Risk Factors: COPD, A/C hypoxic respiratory failure, A/C systolic CHF with EF 40-45%, Sick Euthyroid syndrome Clinical Indicators: EKG/telemetry: Atrial Fib RVR Treatment: Consults: Cardiology Eliquis 5 mg PO BID ASA 325 mg PO QD 11/23 Cardizem Gtt @ 10 cc/hr from [id number] Lopressor 50 mg PO TID In your professional opinion, can you please clarify the type of Atrial Fibrillation, if known? Chronic/Permanent Paroxysmal Persistent Other, please specify Unable to determine (Last Revision: September 2017) The interpretation of "new onset atrial fibrillation" is that : We Don't Know if it is permanent, paroxysmal or persistent Impression Unable to answer the question at this point MTDD
--- NOTE | 2019-11-27 13:54 | P.PN ---
Subjective Progress Note Date: 11/27/19 Principal diagnosis: shortness of breath 79-year-old white female patient with known history of chronic obstructive pulmonary disease on home oxygen at 2-1/2 L/m, previous history of smoking, diabetes mellitus type 2, previous episode of pneumonia, hypertension, hyperlipidemia, GERD/reflux, with recent history of hospitalization at [facility] in the beginning of September for bilateral pneumonia, and small bilateral pleural effusions. Patient was treated with Rocephin and azithromycin during admission. On 11/24/2019 patient presented to this hospital for evaluation of shortness of breath. admission chest x-ray showed prominence and central vascularity and increased interstitium, and bilateral pleural effusions. she was hypoxic, she was placed on 6 L of oxygen and subsequently on BiPAP support at pressures of 12 and 5 and FiO2 of 40%. patient was in A. fib with RVR. lab work showed appointments on chronically 0.3, hemoglobin of 10.3, platelet count was 385, lymphocytes 1.5, INR is 1.2, electrolytes were within normal limits, B1 is 23, creatinine is 1.01, glucose was 224, plasma lactic acid was 0.8, troponin topped out at 0.075, proBNP was 7190, TSH was 0.328. she was started on IV Lasix at 40 mg every 12 hours which was subsequently changed to Lasix infusion at 10 mg per hour. Patient is in -3 L net fluid balance over the last 24 hours, this morning she is feeling better, breathing easier, remains on BiPAP support, and she would like to trial off the BiPAP support. echocardiogram is pending, COVID 19 testing is in progress, and the results are pending at this time. On 11/26/2019 patient seen in follow-up in the selective care unit. She is awake and alert, remains on BiPAP support, with pressures 12/5, and FiO2 of 40%, her pulse ox is 99%, patient has been tolerating trials off the BiPAP support on high flow nasal cannula. Patient remains on IV Lasix drip at 10 mg per hour, IV 0.9 normal saline at 5 ML per hour, remains dyspneic, patient has been and 1.2 L negative fluid balance over the last 24 hours. monitoring specialist still shows atrial fibrillation with the better controlled rate, patient is on oral metoprolol 50 mg twice daily, and Eliquis On 11/27/2019 patient seen in follow-up on selective care unit. She remains on BiPAP support, with pressures of 12/5, and FiO2 of 40%. This morning I received a call from the nurse about total critical serum CO2 of 43, and blood gas was ordered in view of reported lethargy. Blood gas showed pO2 of 78, pCO2 of 73, and pH of 7.45, consistent with chronic hypercapnic respiratory failure. Patient is on oral Lasix, 40 mg twice daily, she has been 1.7 L and urine output over the last 24 hours, she is on breathing treatments. No fever or chills. Hemodynamically stable, sinus rhythm on the monitor with frequent PACs. Yesterday's chest x-ray showed stable bilateral infiltrates and pleural effusion with diffuse interstitial pattern. During our evaluation patient is easily arousable, she is answering questions appropriately, appears to be in no acute distress, lung sounds are diminished at the bases, patient is agreeable to try high flow nasal cannula trial. Objective - Vital Signs Vital signs: Vital Signs Temp 97.6 F 11/27/19 08:00 Pulse 120 H 11/27/19 11:47 Resp 16 11/27/19 12:00 BP 140/70 11/27/19 08:00 Pulse Ox 96 11/27/19 08:00 Intake & Output 11/26/19 11/27/19 11/27/19 18:59 06:59 18:59 Intake Total 1125.333 265 260 Output Total 600 1100 700 Balance 525.333 -835 -440 Weight 75.5 kg Intake: IV 110 165 20 0.9 45 Furosemide 100 mg In 80 90 Sodium Chloride 0.9% 90 ml @ 10 MG/HR 10 mls/hr IV .Q10H WENCES[facility]O Rx#: [id number] Invasive Line 2 30 30 20 Intake, IV Titration 175.333 100 Amount Furosemide 100 mg In 175.333 100 Sodium Chloride 0.9% 90 ml @ 10 MG/HR 10 mls/hr IV .Q10H [facility]ENC[facility] Rx#: [id number] Oral 840 240 Output: Urine 600 1100 700 Uretheral (Mccall) 600 Other: Voiding Method Indwelling Catheter Indwelling Catheter Indwelling Catheter - Exam GENERAL EXAM: Alert, very pleasant, 71-year-old white female, on BiPAP support, currently with pressures of 12 and 5, and FiO2 of 40% comfortable in no apparent distress. HEAD: Normocephalic/atraumatic. EYES: Normal reaction of pupils, equal size. Conjunctiva pink, sclera white. NOSE: Clear with pink turbinates. THROAT: No erythema or exudates. NECK: No masses, no JVD, no thyroid enlargement, no adenopathy. CHEST: No chest wall deformity. Symmetrical expansion. LUNGS: diminished air entry with no crackles, wheeze, rhonchi or dullness. CVS: Irregular rate and rhythm, normal S1 and S2, no gallops, no murmurs, no rubs ABDOMEN: Soft, nontender. No hepatosplenomegaly, normal bowel sounds, no guarding or rigidity. EXTREMITIES: No clubbing, no edema, no cyanosis, 2+ pulses and upper and lower extremities. MUSCULOSKELETAL: Muscle strength and tone normal. SPINE: No scoliosis or deformity SKIN: No rashes CENTRAL NERVOUS SYSTEM: Alert and oriented -3. No focal deficits, tone is normal in all 4 extremities. PSYCHIATRIC: Alert and oriented -3. Appropriate affect. Intact judgment and insight. - Labs CBC & Chem 7: 11/26/19 06:55 11/27/19 06:28 Labs: Abnormal Lab Results - Last 24 Hours (Table) 11/26/19 11/26/19 11/27/19 Range/Units 16:38 20:36 06:14 ABG pCO2 (35-45) mmHg ABG pO2 (83-108) mmHg ABG HCO3 (21-25) mmol/L ABG Total CO2 (19-24) mmol/L Chloride (98-107) mmol/L Carbon Dioxide (22-30) mmol/L BUN (7-17) mg/dL Glucose (74-99) mg/dL POC Glucose (mg/dL) 112 H 127 H 131 H (75-99) mg/dL Urine Blood (Negative) Ur Leukocyte Esterase (Negative) Urine RBC (0-5) /hpf Urine WBC (0-5) /hpf Urine Bacteria (None) /hpf Urine Mucus (None) /hpf 11/27/19 11/27/19 11/27/19 Range/Units 06:28 06:30 09:44 ABG pCO2 73 H* (35-45) mmHg ABG pO2 78 L (83-108) mmHg ABG HCO3 50 H* (21-25) mmol/L ABG Total CO2 52 H (19-24) mmol/L Chloride 86 L (98-107) mmol/L Carbon Dioxide 43 H* (22-30) mmol/L BUN 34 H (7-17) mg/dL Glucose 125 H (74-99) mg/dL POC Glucose (mg/dL) (75-99) mg/dL Urine Blood Trace H (Negative) Ur Leukocyte Esterase Moderate H (Negative) Urine RBC 10 H (0-5) /hpf Urine WBC 12 H (0-5) /hpf Urine Bacteria Rare H (None) /hpf Urine Mucus Rare H (None) /hpf 11/27/19 Range/Units 11:14 ABG pCO2 (35-45) mmHg ABG pO2 (83-108) mmHg ABG HCO3 (21-25) mmol/L ABG Total CO2 (19-24) mmol/L Chloride (98-107) mmol/L Carbon Dioxide (22-30) mmol/L BUN (7-17) mg/dL Glucose (74-99) mg/dL POC Glucose (mg/dL) 134 H (75-99) mg/dL Urine Blood (Negative) Ur Leukocyte Esterase (Negative) Urine RBC (0-5) /hpf Urine WBC (0-5) /hpf Urine Bacteria (None) /hpf Urine Mucus (None) /hpf Assessment and Plan Plan: Assessment: #1. Acute on chronic hypoxic and hypercapnic respiratory failure related to acute exacerbation of congestive heart failure with unknown LV function #2. Elevated troponins, likely related to acute exacerbation of CHF #3. New onset A. fib with RVR #4. Recent hospitalization for bibasilar pneumonia and bilateral pleural effusions at [facility] in the beginning of October 2019 #5. Advanced COPD with chronic hypoxemic respiratory failure, and patient wears and a half liters of oxygen at home on a regular basis #6. Hypertension #7. Hyperlipidemia #8. Diabetes mellitus #9. GERD/reflux #10. History of tobacco abuse, currently in remission plan: Intake and the patient on high flow nasal cannula trial, may use BiPAP support as needed, continue breathing treatments, continue with diuretics. Heart rate control medications per cardiology. Follow-up chest x-ray in the morning, repeat electrolytes and renal profile, code status is DO NOT RESUSCITATE, we'll continue supportive treatment. I performed a history & physical examination of the patient and discussed their management with my nurse practitioner, Sarah Panda. I reviewed the nurse practitioner's note and agree with the documented findings and plan of care. Lung sounds are positive for diminished breath sounds. The findings and the impression was discussed with the patient. I attest to the documentation by the nurse practitioner. Time with Patient: Less than 30
--- NOTE | 2019-11-27 14:37 | P.PN ---
Subjective 73-year-old female admitted for new onset atrial fibrillation and heart failure exacerbation patient's EF is 40-45%. Patient has a moderate pulmonary hypertension on echo cardiac exam. Patient is being started on Eliquis after verification with insurance. had significant urine output since yesterday patient on IV Lasix drip at this time this is being managed by cardiologypatient is presently in 6 L of oxygen. 11/26/2019 Patient required BiPAP yesterday. Presently on 6 L of oxygen today. Patient remains on IV Lasix drip creatinine remained stable. Repeat chest x-ray is pending patient feels really tired and weak 11/27/2019 Patient is being switched to oral Lasix, patient does have hypercapnia as well as hypoxia. Patient bicarbonate on admission is around 28. She appears to have some contraction alkalosis with the bicarbonate going up to 48. Constitutional: denied any fever. Cardio vascular: denied any chest pain, palpitations Gastrointestinal denied any nausea vomiting Pulmonary:as mentioned in HPI Neurologic denied any new focal deficits All inpatient medications were reviewed and appropriate changes in these medic ations as dictated in the interval history and assessment and plan. Objective - Vital Signs Vital signs: Vital Signs Temp 97.6 F 11/27/19 08:00 Pulse 120 H 11/27/19 11:47 Resp 16 11/27/19 12:00 BP 140/70 11/27/19 08:00 Pulse Ox 96 11/27/19 08:00 Intake & Output 11/26/19 11/27/19 11/27/19 18:59 06:59 18:59 Intake Total 1125.333 265 260 Output Total 600 1100 700 Balance 525.333 -835 -440 Weight 75.5 kg 75.5 kg Intake: IV 110 165 20 0.9 45 Furosemide 100 mg In 80 90 Sodium Chloride 0.9% 90 ml @ 10 MG/HR 10 mls/hr IV .Q10H [facility] Rx#: [id number] Invasive Line 2 30 30 20 Intake, IV Titration 175.333 100 Amount Furosemide 100 mg In 175.333 100 Sodium Chloride 0.9% 90 ml @ 10 MG/HR 10 mls/hr IV .Q10H [facility] Rx#: [id number] Oral 840 240 Output: Urine 600 1100 700 Uretheral (Mccall) 600 Other: Voiding Method Indwelling Catheter Indwelling Catheter Indwelling Catheter - Exam PHYSICAL EXAMINATION: GENERAL: The patient is alert and oriented x3, not in any acute distress. Well developed, well nourished. Patient appears like severely fatigued and weak HEENT: Pupils are round and equally reacting to light. EOMI. No scleral icterus. No conjunctival pallor. Normocephalic, atraumatic. No pharyngeal erythema. No thyromegaly. CARDIOVASCULAR: S1 and S2 present. No murmurs, rubs, or gallops. PULMONARY: Chest is clear to auscultation, no wheezing or crackles. ABDOMEN: Soft, nontender, nondistended, normoactive bowel sounds. No palpable organomegaly. MUSCULOSKELETAL: No joint swelling or deformity. EXTREMITIES: No cyanosis, clubbing, or pedal edema. NEUROLOGICAL: Gross neurological examination did not reveal any focal deficits. SKIN: No rashes. - Labs CBC & Chem 7: 11/26/19 06:55 11/27/19 06:28 Labs: Abnormal Lab Results - Last 24 Hours (Table) 11/26/19 11/26/19 11/27/19 Range/Units 16:38 20:36 06:14 ABG pCO2 (35-45) mmHg ABG pO2 (83-108) mmHg ABG HCO3 (21-25) mmol/L ABG Total CO2 (19-24) mmol/L Chloride (98-107) mmol/L Carbon Dioxide (22-30) mmol/L BUN (7-17) mg/dL Glucose (74-99) mg/dL POC Glucose (mg/dL) 112 H 127 H 131 H (75-99) mg/dL Urine Blood (Negative) Ur Leukocyte Esterase (Negative) Urine RBC (0-5) /hpf Urine WBC (0-5) /hpf Urine Bacteria (None) /hpf Urine Mucus (None) /hpf 11/27/19 11/27/19 11/27/19 Range/Units 06:28 06:30 09:44 ABG pCO2 73 H* (35-45) mmHg ABG pO2 78 L (83-108) mmHg ABG HCO3 50 H* (21-25) mmol/L ABG Total CO2 52 H (19-24) mmol/L Chloride 86 L (98-107) mmol/L Carbon Dioxide 43 H* (22-30) mmol/L BUN 34 H (7-17) mg/dL Glucose 125 H (74-99) mg/dL POC Glucose (mg/dL) (75-99) mg/dL Urine Blood Trace H (Negative) Ur Leukocyte Esterase Moderate H (Negative) Urine RBC 10 H (0-5) /hpf Urine WBC 12 H (0-5) /hpf Urine Bacteria Rare H (None) /hpf Urine Mucus Rare H (None) /hpf 11/27/19 Range/Units 11:14 ABG pCO2 (35-45) mmHg ABG pO2 (83-108) mmHg ABG HCO3 (21-25) mmol/L ABG Total CO2 (19-24) mmol/L Chloride (98-107) mmol/L Carbon Dioxide (22-30) mmol/L BUN (7-17) mg/dL Glucose (74-99) mg/dL POC Glucose (mg/dL) 134 H (75-99) mg/dL Urine Blood (Negative) Ur Leukocyte Esterase (Negative) Urine RBC (0-5) /hpf Urine WBC (0-5) /hpf Urine Bacteria (None) /hpf Urine Mucus (None) /hpf Assessment and Plan Plan: -acute hypoxic respiratory failure most probably secondary to congestive heart failure chronic systolic dysfunction with acute exacerbation. Patient is presently of BiPAP on 6 L of oxygen. Patient does have troponin elevation because of CHF patient is presently on IV heparin will be switched Eliquis patient is a patient has significant contraction alkalosis because of which her Lasix drip with is being switched to oral Lasix patient has significant urine output congestive heart failure chronic systolic dysfunction EF of around 40-45% -Both hypoxic and hypercapnic respiratory failure: BiPAP as needed - new onset atrial fibrillation with rapid ventricular rate: Patient was started on metoprolol heart rate is fairly well controlled, patient is on Eliquis for anticoagulation -Hypertension \ -hyperlipidemia -type 2 diabetes mellitus -Gastric esophageal reflux disease -Sick euthyroid syndrome for which patient will need repeat TSH in about a month
[2019-11-27] MEDS: GLIMEPIRIDE 2 MG TAB PO SCH ×2 (16:31→16:37)
[2019-11-27] MEDS: FUROSEMIDE 40 MG TAB PO SCH (16:37)
[2019-11-27 16:44] LABS: Glucose,Whole Blood 176 mg/dL (75-99)
[2019-11-27 20:13] LABS: Glucose,Whole Blood 205 mg/dL (75-99)
[2019-11-27] MEDS: PRAVASTATIN SODIUM 40 MG TAB PO SCH (20:49)
[2019-11-28] MEDS: ALPRAZolam 0.25 MG TAB PO SCH ×3 (02:08→20:38)
[2019-11-28 06:18] LABS: Glucose,Whole Blood 136 mg/dL (75-99)
[2019-11-28] MEDS: INSULIN ASPART (NovoLOG) 100 UNIT/ML VIAL SQ SCH ×4 (06:22→20:38)
[2019-11-28 07:02] LABS: Calcium 9.1 mg/dL (8.4-10.2); Potassium 3.3 mmol/L (3.5-5.1)
[2019-11-28] MEDS: FLUTICASONE 44 MCG INHALER INHALATION SCH ×2 (08:19→20:47)
[2019-11-28] MEDS: IPRATROPIUM 0.5 MG/2.5 ML NEBU INHALATION SCH ×4 (08:25→20:44)
--- NOTE | 2019-11-28 08:41 | XR ---
EXAMINATION TYPE: XR chest 1V portable DATE OF EXAM: 11/28/2019 Comparison: 11/26/2019 Clinical History: 79-year-old female shortness of breath Findings: Heart remains enlarged. Diffuse interstitial prominence persists. Slight increase in moderate left pl eural effusion and similar trace right effusion. Impression: Slight increase in the moderate left pleural effusion with adjacent atelectasis and/or consolidation. Continued trace right effusion. Given cardiomegaly and interstitial prominence, correlate for mild C HF.
[2019-11-28] MEDS: LACTOBACILLUS ACIDOPH & BULGAR 1 EACH PACKET PO SCH (10:00)
[2019-11-28] MEDS: FENOFIBRATE 160 MG TAB PO SCH (10:00)
[2019-11-28] MEDS: METOPROLOL TARTRATE 50 MG TAB PO SCH ×3 (10:00→20:38)
[2019-11-28] MEDS: ASPIRIN 81 MG PO SCH (10:00)
[2019-11-28] MEDS: APIXABAN 5 MG TAB PO SCH ×2 (10:00→20:38)
[2019-11-28] MEDS: LISINOPRIL 10 MG TAB PO SCH (10:00)
[2019-11-28] MEDS: GLIMEPIRIDE 2 MG TAB PO SCH ×2 (10:00→17:16)
[2019-11-28] MEDS: FERROUS SULFATE 325 MG TAB PO SCH (10:00)
[2019-11-28] MEDS: FUROSEMIDE 40 MG TAB PO SCH (10:00)
[2019-11-28 11:40] LABS: Glucose,Whole Blood 218 mg/dL (75-99)
--- NOTE | 2019-11-28 13:35 | P.PN ---
Subjective 73-year-old female admitted for new onset atrial fibrillation and heart failure exacerbation patient's EF is 40-45%. Patient has a moderate pulmonary hypertension on echo cardiac exam. Patient is being started on Eliquis after verification with insurance. had significant urine output since yesterday patient on IV Lasix drip at this time this is being managed by cardiologypatient is presently in 6 L of oxygen. 11/26/2019 Patient required BiPAP yesterday. Presently on 6 L of oxygen today. Patient remains on IV Lasix drip creatinine remained stable. Repeat chest x-ray is pending patient feels really tired and weak 11/27/2019 Patient is being switched to oral Lasix, patient does have hypercapnia as well as hypoxia. Patient bicarbonate on admission is around 28. She appears to have some contraction alkalosis with the bicarbonate going up to 48. 11/28/2019 Patient clinically looks much better and then started going up will hold off on HENRY inhibitor temporarily. Chest x-ray showing mild worsening of heart failure. She is much less tired much less short of breath Constitutional: denied any fever. Cardio vascular: denied any chest pain, palpitations Gastrointestinal denied any nausea vomiting Pulmonary:as mentioned in HPI Neurologic denied any new focal deficits All inpatient medications were reviewed and appropriate changes in these medications as dictated in the interval history and assessment and plan. Objective - Vital Signs Vital signs: Vital Signs Temp 98.1 F 11/28/19 00:00 Pulse 88 11/28/19 12:10 Resp 26 H 11/28/19 04:00 BP 120/59 11/28/19 04:00 Pulse Ox 98 11/28/19 04:00 Intake & Output 11/27/19 11/28/19 11/28/19 18:59 06:59 18:59 Intake Total 270 30 Output Total 700 550 Balance -430 -520 Weight 75.5 kg 74.5 kg 74.5 kg Intake: IV 30 30 Invasive Line 2 30 30 Oral 240 Output: Urine 700 550 Uretheral (Mccall) 350 Other: Voiding Method Indwelling Catheter Indwelling Catheter # Voids 1 - Exam PHYSICAL EXAMINATION: GENERAL: The patient is alert and oriented x3, not in any acute distress. Well developed, well nourished. Patient looks much better today HEENT: Pupils are round and equally reacting to light. EOMI. No scleral icterus. No conjunctival pallor. Normocephalic, atraumatic. No pharyngeal erythema. No thyromegaly. CARDIOVASCULAR: S1 and S2 present. No murmurs, rubs, or gallops. PULMONARY: Chest is clear to auscultation, no wheezing or crackles. ABDOMEN: Soft, nontender, nondistended, normoactive bowel sounds. No palpable organomegaly. MUSCULOSKELETAL: No joint swelling or deformity. EXTREMITIES: No cyanosis, clubbing, or pedal edema. NEUROLOGICAL: Gross neurological examination did not reveal any focal deficits. SKIN: No rashes. - Labs CBC & Chem 7: 11/26/19 06:55 11/28/19 06:19 Labs: Abnormal Lab Results - Last 24 Hours (Table) 11/27/19 11/27/19 11/28/19 Range/Units 16:25 20:11 06:17 Potassium (3.5-5.1) mmol/L Chloride (98-107) mmol/L Carbon Dioxide (22-30) mmol/L BUN (7-17) mg/dL Creatinine (0.52-1.04) mg/dL Glucose (74-99) mg/dL POC Glucose (mg/dL) 176 H 205 H 136 H (75-99) mg/dL 11/28/19 11/28/19 Range/Units 06:19 11:38 Potassium 3.3 L (3.5-5.1) mmol/L Chloride 85 L (98-107) mmol/L Carbon Dioxide 46 H* (22-30) mmol/L BUN 48 H (7-17) mg/dL Creatinine 1.21 H (0.52-1.04) mg/dL Glucose 130 H (74-99) mg/dL POC Glucose (mg/dL) 218 H (75-99) mg/dL Assessment and Plan Plan: -acute hypoxic respiratory failure most probably secondary to congestive heart failure chronic systolic dysfunction with acute exacerbation. Patient is presently of BiPAP on 6 L of oxygen. Patient does have troponin elevation because of CHF patient is presently on IV heparin will be switched Eliquis patient is a patient has significant contraction alkalosis because of which her Lasix drip with is being switched to oral Lasix patient has significant urine output congestive heart failure chronic systolic dysfunction EF of around 40-45%: Lisinopril will be temporary held because of acute renal dysfunction creatinine went up to 1.2 -Both hypoxic and hypercapnic respiratory failure: BiPAP as needed - new onset atrial fibrillation with rapid ventricular rate: Patient was started on metoprolol heart rate is fairly well controlled, patient is on Eliquis for anticoagulation -Hypertension \ -hyperlipidemia -type 2 diabetes mellitus -Gastric esophageal reflux disease -Sick euthyroid syndrome for which patient will need repeat TSH in about a month
--- NOTE | 2019-11-28 14:25 | P.PN ---
Subjective Progress Note Date: 11/28/19 Principal diagnosis: shortness of breath 79-year-old white female patient with known history of chronic obstructive pulmonary disease on home oxygen at 2-1/2 L/m, previous history of smoking, diabetes mellitus type 2, previous episode of pneumonia, hypertension, hyperlipidemia, GERD/reflux, with recent history of hospitalization at [facility] in the beginning of September for bilateral pneumonia, and small bilateral pleural effusions. Patient was treated with Rocephin and azithromycin during admission. On 11/24/2019 patient presented to this hospital for evaluation of shortness of breath. admission chest x-ray showed prominence and central vascularity and increased interstitium, and bilateral pleural effusions. she was hypoxic, she was placed on 6 L of oxygen and subsequently on BiPAP support at pressures of 12 and 5 and FiO2 of 40%. patient was in A. fib with RVR. lab work showed appointments on chronically 0.3, hemoglobin of 10.3, platelet count was 385, lymphocytes 1.5, INR is 1.2, electrolytes were within normal limits, B1 is 23, creatinine is 1.01, glucose was 224, plasma lactic acid was 0.8, troponin topped out at 0.075, proBNP was 7190, TSH was 0.328. she was started on IV Lasix at 40 mg every 12 hours which was subsequently changed to Lasix infusion at 10 mg per hour. Patient is in -3 L net fluid balance over the last 24 hours, this morning she is feeling better, breathing easier, remains on BiPAP support, and she would like to trial off the BiPAP support. echocardiogram is pending, COVID 19 testing is in progress, and the results are pending at this time. On 11/26/2019 patient seen in follow-up in the selective care unit. She is awake and alert, remains on BiPAP support, with pressures 12/5, and FiO2 of 40%, her pulse ox is 99%, patient has been tolerating trials off the BiPAP support on high flow nasal cannula. Patient remains on IV Lasix drip at 10 mg per hour, IV 0.9 normal saline at 5 ML per hour, remains dyspneic, patient has been and 1.2 L negative fluid balance over the last 24 hours. support representative still shows atrial fibrillation with the better controlled rate, patient is on oral metoprolol 50 mg twice daily, and Eliquis On 11/27/2019 patient seen in follow-up on selective care unit. She remains on BiPAP support, with pressures of 12/5, and FiO2 of 40%. This morning I received a call from the nurse about total critical serum CO2 of 43, and blood gas was ordered in view of reported lethargy. Blood gas showed pO2 of 78, pCO2 of 73, and pH of 7.45, consistent with chronic hypercapnic respiratory failure. Patient is on oral Lasix, 40 mg twice daily, she has been 1.7 L and urine output over the last 24 hours, she is on breathing treatments. No fever or chills. Hemodynamically stable, sinus rhythm on the monitor with frequent PACs. Yesterday's chest x-ray showed stable bilateral infiltrates and pleural effusion with diffuse interstitial pattern. During our evaluation patient is easily arousable, she is answering questions appropriately, appears to be in no acute distress, lung sounds are diminished at the bases, patient is agreeable to try high flow nasal cannula trial. On 11/28/2019 patient seen in follow-up on selective care unit. Patient is sleepy, but is in no acute distress, patient is currently on high flow nasal cannula, she did wear BiPAP through the night. She continues on oral diuretics, 40 mg twice daily, she is in -900 mL fluid balance over the last 24 hours, no fever or chills, no complaints of chest pain. Today's chest x-ray shows a slight increase in the moderately sized left pleural effusion with adjacent atelectasis and consolidation, and trace right pleural effusion. Today's labs have been reviewed, showing sodium of 141, potassium 3.3, chloride is 85, CO2 is 46, BUN of 48, and creatinine is 1.21. Patient has had some worsening of her renal function, she is developing metabolic alkalosis possibly related to diuretics and volume contraction. We'll cut back the Lasix dose to 20 mg once daily Objective - Vital Signs Vital signs: Vital Signs Temp 98.1 F 11/28/19 00:00 Pulse 88 11/28/19 12:10 Resp 26 H 11/28/19 04:00 BP 120/59 11/28/19 04:00 Pulse Ox 98 11/28/19 04:00 Intake & Output 11/27/19 11/28/19 11/28/19 18:59 06:59 18:59 Intake Total 270 30 180 Output Total 700 550 Balance -430 -520 180 Weight 75.5 kg 74.5 kg 74.5 kg Intake: IV 30 30 Invasive Line 2 30 30 Oral 240 180 Output: Urine 700 550 Uretheral (Mccall) 350 Other: Voiding Method Indwelling Catheter Indwelling Catheter # Voids 1 - Exam GENERAL EXAM: Lethargic 71-year-old white female, on BiPAP support intermittently, currently with pressures of 12 and 5, and FiO2 of 40%, patient is on 6 L per high flow nasal cannula comfortable in no apparent distress. HEAD: Normocephalic/atraumatic. EYES: Normal reaction of pupils, equal size. Conjunctiva pink, sclera white. NOSE: Clear with pink turbinates. THROAT: No erythema or exudates. NECK: No masses, no JVD, no thyroid enlargement, no adenopathy. CHEST: No chest wall deformity. Symmetrical expansion. LUNGS: diminished air entry with no crackles, wheeze, rhonchi or dullness. CVS: Irregular rate and rhythm, normal S1 and S2, no gallops, no murmurs, no rubs ABDOMEN: Soft, nontender. No hepatosplenomegaly, normal bowel sounds, no guarding or rigidity. EXTREMITIES: No clubbing, no edema, no cyanosis, 2+ pulses and upper and lower extremities. MUSCULOSKELETAL: Muscle strength and tone normal. SPINE: No scoliosis or deformity SKIN: No rashes CENTRAL NERVOUS SYSTEM: Alert and oriented -3. No focal deficits, tone is normal in all 4 extremities. PSYCHIATRIC: Alert and oriented -3. Appropriate affect. Intact judgment and insight. - Labs CBC & Chem 7: 11/26/19 06:55 11/28/19 06:19 Labs: Abnormal Lab Results - Last 24 Hours (Table) 11/27/19 11/27/19 11/28/19 Range/Units 16:25 20:11 06:17 Potassium (3.5-5.1) mmol/L Chloride (98-107) mmol/L Carbon Dioxide (22-30) mmol/L BUN (7-17) mg/dL Creatinine (0.52-1.04) mg/dL Glucose (74-99) mg/dL POC Glucose (mg/dL) 176 H 205 H 136 H (75-99) mg/dL 11/28/19 11/28/19 Range/Units 06:19 11:38 Potassium 3.3 L (3.5-5.1) mmol/L Chloride 85 L (98-107) mmol/L Carbon Dioxide 46 H* (22-30) mmol/L BUN 48 H (7-17) mg/dL Creatinine 1.21 H (0.52-1.04) mg/dL Glucose 130 H (74-99) mg/dL POC Glucose (mg/dL) 218 H (75-99) mg/dL Assessment and Plan Plan: Assessment: #1. Acute on chronic hypoxic and hypercapnic respiratory failure related to acute exacerbation of congestive heart failure with impaired LV function, and EF of 40-45%, moderate MR, moderate tricuspid regurgitation, and moderately severe pulmonary hypertension and right-sided pressures of 56 Reason mercury #2. Elevated troponins, likely related to acute exacerbation of CHF #3. New onset A. fib with RVR #4. Recent hospitalization for bibasilar pneumonia and bilateral pleural ef fusions at [facility] in the beginning of October 2019 #5. Advanced COPD with chronic hypoxemic respiratory failure, and patient wears and a half liters of oxygen at home on a regular basis #6. Hypertension #7. Hyperlipidemia #8. Diabetes mellitus #9. GERD/reflux #10. History of tobacco abuse, currently in remission #11. Metabolic alkalosis related to volume contraction and diuretic therapy plan: We'll cut back the Lasix dose to 20 mg once daily, patient has developed worsening metabolic alkalosis likely related to find contraction and diuretic therapy, continue BiPAP support as needed, alternate with high flow nasal cannula. Today's chest x-ray has been reviewed possibly showing some worsening of the left-sided pleural effusion, and bibasilar atelectasis, and changes of congestive heart failure. Continue breathing treatments and steroids. Electrolytes and renal profile in the morning. Overall prognosis is extremely guarded, possibility of palliative care and hospice initiation could be discussed with the family. I performed a history & physical examination of the patient and discussed their management with my nurse practitioner, Sarah Panda. I reviewed the nurse practitioner's note and agree with the documented findings and plan of care. Lung sounds are positive for diminished breath sounds. The findings and the impression was discussed with the patient. I attest to the documentation by the nurse practitioner. Time with Patient: Less than 30
--- NOTE | 2019-11-28 15:10 | P.PN ---
Subjective Progress Note Date: 11/28/19 This is a 79-year-old female with history of hyperlipidemia, hypertension, COPD with home O2, prior history of smoking, diabetes, GERD, who had a recent hospitalization at [facility] in the beginning of September for bilateral pneumonia. She presented to the hospital here on this admis alonzo with symptoms of progressively worsening shortness of breath. Her chest x- ray showed bilateral pleural effusions and congestive heart failure. Patient was quite hypoxic on admission and was placed on 6 L of oxygen, ultimately put on BiPAP support. Her EKG on presentation here showed atrial fibrillation with a rapid ventricular response, this appears to be new for the patient. Blood pressure 140/50 with a heart rate in the 90s, respirations 20, she's 95% on BiPAP this morning, white blood cell count 8.3, hemoglobin 10.3, platelet count 385. Sodium 142, potassium 4.2, BUN 23, creatinine 1.0. Magnesium 1.7. BNP 7190, troponin 0.05, 0.07, 0.07. Patient was initiated on an IV Lasix drip and continues to be on it at this time. She's also on IV heparin. She does have a negative fluid balance of 3 L over the past 24 hours. She does state overall that she's feeling much better this morning. Patient is also being tested for Covid which is pending. 11/26/2019 Patient was seen and examined this morning sitting up in the chair at bedside. Awake and alert, continues to be on IV Lasix drip. Negative fluid balance over the past 24 hours. Heart rate maintains in good control, atrial fibrillation. 11/27/2019 Patient was seen and examined this morning, unresponsive today. She had blood gases done this morning, pH 7.4, pCO2 73, pO2 78, HCO3 50, total CO2 50, sodium 141, potassium 3.5, BUN 34, creatinine 1.04. She is a no code patient, they have actually requested the family to come in this morning. 11/28 2019 Patient was seen and examined this morning, continues to be on oral diuretics, chest x-ray today did show an increase in moderately sized left pleural effusion with atelectasis and consolidation. Sodium today 141, potassium 3.3, chloride 85, CO2 46, BUN 48 and creatinine 1.2. She is developing some metabolic alkalosis probably related to diuretics and volume contraction. Therefore the Lasix dose was decreased by pulmonary today. She continues to be sleepy today but it does appear that her breathing is a little more stable. Family is at bedside Objective - Vital Signs Vital signs: Vital Signs Temp 98.3 F 11/28/19 08:00 Pulse 88 11/28/19 12:10 Resp 20 11/28/19 08:00 BP 149/70 11/28/19 08:00 Pulse Ox 96 11/28/19 08:00 Intake & Output 11/27/19 11/28/19 11/28/19 18:59 06:59 18:59 Intake Total 270 30 180 Output Total 700 550 Balance -430 -520 180 Weight 75.5 kg 74.5 kg 74.5 kg Intake: IV 30 30 Invasive Line 2 30 30 Oral 240 180 Output: Urine 700 550 Uretheral (Mccall) 350 Other: Voiding Method Indwelling Catheter Indwelling Catheter Indwelling Catheter # Voids 1 - Exam GENERAL EXAM: Alert, very pleasant, 71-year-old white female, unresponsive, short of breath HEAD: Normocephalic/atraumatic. EYES: Normal reaction of pupils, equal size. Conjunctiva pink, sclera white. NOSE: Clear with pink turbinates. THROAT: No erythema or exudates. NECK: No masses, no JVD, no thyroid enlargement, no adenopathy. CHEST: No chest wall deformity. Symmetrical expansion. LUNGS: diminished air entry with no crackles, wheeze, rhonchi or dullness. CVS: Irregular rate and rhythm, normal S1 and S2, no gallops, no murmurs, no rubs ABDOMEN: Soft, nontender. No hepatosplenomegaly, normal bowel sounds, no guarding or rigidity. EXTREMITIES: No clubbing, no edema, no cyanosis, 2+ pulses and upper and lower extremities. MUSCULOSKELETAL: Muscle strength and tone normal. SPINE: No scoliosis or deformity SKIN: No rashes CENTRAL NERVOUS SYSTEM: Alert and oriented -3. No focal deficits, tone is normal in all 4 extremities. PSYCHIATRIC: Unresponsive - Labs CBC & Chem 7: 11/26/19 06:55 11/28/19 06:19 Labs: Abnormal Lab Results - Last 24 Hours (Table) 11/27/19 11/27/19 11/28/19 Range/Units 16:25 20:11 06:17 Potassium (3.5-5.1) mmol/L Chloride (98-107) mmol/L Carbon Dioxide (22-30) mmol/L BUN (7-17) mg/dL Creatinine (0.52-1.04) mg/dL Glucose (74-99) mg/dL POC Glucose (mg/dL) 176 H 205 H 136 H (75-99) mg/dL 11/28/19 11/28/19 Range/Units 06:19 11:38 Potassium 3.3 L (3.5-5.1) mmol/L Chloride 85 L (98-107) mmol/L Carbon Dioxide 46 H* (22-30) mmol/L BUN 48 H (7-17) mg/dL Creatinine 1.21 H (0.52-1.04) mg/dL Glucose 130 H (74-99) mg/dL POC Glucose (mg/dL) 218 H (75-99) mg/dL Assessment and Plan Plan: Assessment and plan #1 congestive heart failure, LV function unknown #2 atrial fibrillation with rapid ventricular response, appears to be of new onset for the patient. 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 Overall prognosis is guarded. DNP note has been reviewed, I agree with a documented findings and plan of care. Patient was seen and examined.
[2019-11-28 16:26] LABS: Glucose,Whole Blood 296 mg/dL (75-99)
[2019-11-28] MEDS ORDERED: Potassium Replacement Protocol 1 EACH MISC MISCELLANE PRN (18:20)
[2019-11-28] MEDS: POTASSIUM CHLORIDE ER 20 MEQ TAB.ER PO SCH ×2 (18:39→21:00)
[2019-11-28 20:25] LABS: Glucose,Whole Blood 242 mg/dL (75-99)
[2019-11-28] MEDS: PRAVASTATIN SODIUM 40 MG TAB PO SCH (20:38)
[2019-11-29] MEDS: ACETAMINOPHEN TAB 325 MG TAB PO PRN ×2 (05:23→09:49)
[2019-11-29 06:22] LABS: Glucose,Whole Blood 231 mg/dL (75-99)
[2019-11-29] MEDS: GLIMEPIRIDE 2 MG TAB PO SCH ×2 (06:46→17:32)
[2019-11-29] MEDS: INSULIN ASPART (NovoLOG) 100 UNIT/ML VIAL SQ SCH ×4 (06:46→20:39)
[2019-11-29 07:18] LABS: Calcium 9.5 mg/dL (8.4-10.2); Potassium 3.9 mmol/L (3.5-5.1)
[2019-11-29] MEDS: IPRATROPIUM 0.5 MG/2.5 ML NEBU INHALATION SCH ×4 (08:32→19:51)
[2019-11-29] MEDS: FLUTICASONE 44 MCG INHALER INHALATION SCH ×2 (08:32→19:51)
[2019-11-29] MEDS: FERROUS SULFATE 325 MG TAB PO SCH (09:48)
[2019-11-29] MEDS: ASPIRIN 81 MG PO SCH (09:48)
[2019-11-29] MEDS: FENOFIBRATE 160 MG TAB PO SCH (09:49)
[2019-11-29] MEDS: METOPROLOL TARTRATE 50 MG TAB PO SCH ×3 (09:49→20:39)
[2019-11-29] MEDS: APIXABAN 5 MG TAB PO SCH ×2 (09:49→20:39)
[2019-11-29] MEDS: FUROSEMIDE 20 MG TAB PO SCH (09:49)
[2019-11-29] MEDS: LACTOBACILLUS ACIDOPH & BULGAR 1 EACH PACKET PO SCH (09:51)
[2019-11-29] MEDS: FAMOTIDINE 20 MG TAB PO SCH (09:55)
[2019-11-29 11:10] LABS: Glucose,Whole Blood 392 mg/dL (75-99)
[2019-11-29] MEDS: ALPRAZolam 0.25 MG TAB PO SCH ×2 (11:17→20:39)
--- NOTE | 2019-11-29 12:45 | P.PN ---
Subjective 73-year-old female admitted for new onset atrial fibrillation and heart failure exacerbation patient's EF is 40-45%. Patient has a moderate pulmonary hypertension on echo cardiac exam. Patient is being started on Eliquis after verification with insurance. had significant urine output since yesterday patient on IV Lasix drip at this time this is being managed by cardiologypatient is presently in 6 L of oxygen. 11/26/2019 Patient required BiPAP yesterday. Presently on 6 L of oxygen today. Patient remains on IV Lasix drip creatinine remained stable. Repeat chest x-ray is pending patient feels really tired and weak 11/27/2019 Patient is being switched to oral Lasix, patient does have hypercapnia as well as hypoxia. Patient bicarbonate on admission is around 28. She appears to have some contraction alkalosis with the bicarbonate going up to 48. 11/28/2019 Patient clinically looks much better and then started going up will hold off on HENRY inhibitor temporarily. Chest x-ray showing mild worsening of heart failure. She is much less tired much less short of breath 11/29/2019 Patient is doing much better today but Her renal function worsened with this can you lisinopril as today and the Lasix dose is being decreased to 20 mg by pulmonary to monitor her kidney function if it improves will be discharged tomorrow. Mccall catheter Removed Constitutional: denied any fever. Cardio vascular: denied any chest pain, palpitations Gastrointestinal denied any nausea vomiting Pulmonary: No shortness of breath Neurologic denied any new focal deficits All inpatient medications were reviewed and appropriate changes in these medications as dictated in the interval history and assessment and plan. Objective - Vital Signs Vital signs: Vital Signs Temp 98.1 F 11/29/19 08:00 Pulse 94 11/29/19 12:03 Resp 16 11/29/19 08:00 BP 113/60 11/29/19 08:00 Pulse Ox 99 11/29/19 08:00 Intake & Output 11/28/19 11/29/19 11/29/19 18:59 06:59 18:59 Intake Total 180 360 Output Total 275 300 Balance -95 -300 360 Weight 74.5 kg 70.9 kg Intake: Oral 180 360 Output: Urine 275 300 Other: Voiding Method Indwelling Catheter Indwelling Catheter Indwelling Catheter # Bowel Movements 0 - Exam PHYSICAL EXAMINATION: GENERAL: The patient is alert and oriented x3, not in any acute distress. Well developed, well nourished. Patient looks much better today HEENT: Pupils are round and equally reacting to light. EOMI. No scleral icterus. No conjunctival pallor. Normocephalic, atraumatic. No pharyngeal erythema. No thyromegaly. CARDIOVASCULAR: S1 and S2 present. No murmurs, rubs, or gallops. PULMONARY: Chest is clear to auscultation, no wheezing or crackles. ABDOMEN: Soft, nontender, nondistended, normoactive bowel sounds. No palpable organomegaly. MUSCULOSKELETAL: No joint swelling or deformity. EXTREMITIES: No cyanosis, clubbing, or pedal edema. NEUROLOGICAL: Gross neurological examination did not reveal any focal deficits. SKIN: No rashes. - Labs CBC & Chem 7: 11/26/19 06:55 11/29/19 06:11 Labs: Abnormal Lab Results - Last 24 Hours (Table) 11/28/19 11/28/19 11/29/19 Range/Units 16:24 20:24 06:11 Chloride 85 L (98-107) mmol/L Carbon Dioxide 45 H* (22-30) mmol/L BUN 66 H (7-17) mg/dL Creatinine 1.90 H (0.52-1.04) mg/dL Glucose 195 H (74-99) mg/dL POC Glucose (mg/dL) 296 H 242 H (75-99) mg/dL 11/29/19 11/29/19 Range/Units 06:21 11:09 Chloride (98-107) mmol/L Carbon Dioxide (22-30) mmol/L BUN (7-17) mg/dL Creatinine (0.52-1.04) mg/dL Glucose (74-99) mg/dL POC Glucose (mg/dL) 231 H 392 H (75-99) mg/dL Assessment and Plan Plan: -acute hypoxic respiratory failure most probably secondary to congestive heart failure chronic systolic dysfunction with acute exacerbation. Patient is presently of BiPAP on 3 L of oxygen. Patient does have troponin elevation because of CHF patient is presently onEliquis patient is a patient has significant contraction alkalosis because of which her Lasix acute renal failure: Secondary to excessive diuresis cutting down the dose 6 to Lasix dose to 20 mg HENRY inhibitor was discontinued will monitor kidney function tomorrow if it starts improving patient will be discharged on a low-dose of L asix congestive heart failure chronic systolic dysfunction EF of around 40-45%: Lisinopril will be temporary held because of acute renal dysfunction creatinine went up to 1.9 -Both hypoxic and hypercapnic respiratory failure: BiPAP as needed - new onset atrial fibrillation with rapid ventricular rate: Patient was started on metoprolol heart rate is fairly well controlled, patient is on Eliquis for anticoagulation -Hypertension \ -hyperlipidemia -type 2 diabetes mellitus -Gastric esophageal reflux disease -Sick euthyroid syndrome for which patient will need repeat TSH in about a month
--- NOTE | 2019-11-29 13:00 | P.PN ---
Subjective Progress Note Date: 11/29/19 This is a 79-year-old female with history of hyperlipidemia, hypertension, COPD with home O2, prior history of smoking, diabetes, GERD, who had a recent hospitalization at [facility] in the beginning of September for bilateral pneumonia. She presented to the hospital here on this admis alonzo with symptoms of progressively worsening shortness of breath. Her chest x- ray showed bilateral pleural effusions and congestive heart failure. Patient was quite hypoxic on admission and was placed on 6 L of oxygen, ultimately put on BiPAP support. Her EKG on presentation here showed atrial fibrillation with a rapid ventricular response, this appears to be new for the patient. Blood pressure 140/50 with a heart rate in the 90s, respirations 20, she's 95% on BiPAP this morning, white blood cell count 8.3, hemoglobin 10.3, platelet count 385. Sodium 142, potassium 4.2, BUN 23, creatinine 1.0. Magnesium 1.7. BNP 7190, troponin 0.05, 0.07, 0.07. Patient was initiated on an IV Lasix drip and continues to be on it at this time. She's also on IV heparin. She does have a negative fluid balance of 3 L over the past 24 hours. She does state overall that she's feeling much better this morning. Patient is also being tested for Covid which is pending. 11/26/2019 Patient was seen and examined this morning sitting up in the chair at bedside. Awake and alert, continues to be on IV Lasix drip. Negative fluid balance over the past 24 hours. Heart rate maintains in good control, atrial fibrillation. 11/27/2019 Patient was seen and examined this morning, unresponsive today. She had blood gases done this morning, pH 7.4, pCO2 73, pO2 78, HCO3 50, total CO2 50, sodium 141, potassium 3.5, BUN 34, creatinine 1.04. She is a no code patient, they have actually requested the family to come in this morning. 11/28 2019 Patient was seen and examined this morning, continues to be on oral diuretics, chest x-ray today did show an increase in moderately sized left pleural effusion with atelectasis and consolidation. Sodium today 141, potassium 3.3, chloride 85, CO2 46, BUN 48 and creatinine 1.2. She is developing some metabolic alkalosis probably related to diuretics and volume contraction. Therefore the Lasix dose was decreased by pulmonary today. She continues to be sleepy today but it does appear that her breathing is a little more stable. Family is at bedside 11/29/2019 Patient doing much better today. Hemodynamically stable. Sodium 140, potassium 3.9, BUN 66, creatinine 1.9. Objective - Vital Signs Vital signs: Vital Signs Temp 98.1 F 11/29/19 08:00 Pulse 94 11/29/19 12:03 Resp 16 11/29/19 08:00 BP 113/60 11/29/19 08:00 Pulse Ox 99 11/29/19 08:00 Intake & Output 11/28/19 11/29/19 11/29/19 18:59 06:59 18:59 Intake Total 180 360 Output Total 275 300 Balance -95 -300 360 Weight 74.5 kg 70.9 kg Intake: Oral 180 360 Output: Urine 275 300 Other: Voiding Method Indwelling Catheter Indwelling Catheter Indwelling Catheter # Bowel Movements 0 - Exam GENERAL EXAM: Alert, very pleasant, 71-year-old white female, unresponsive, short of breath HEAD: Normocephalic/atraumatic. EYES: Normal reaction of pupils, equal size. Conjunctiva pink, sclera white. NOSE: Clear with pink turbinates. THROAT: No erythema or exudates. NECK: No masses, no JVD, no thyroid enlargement, no adenopathy. CHEST: No chest wall deformity. Symmetrical expansion. LUNGS: diminished air entry with no crackles, wheeze, rhonchi or dullness. CVS: Irregular rate and rhythm, normal S1 and S2, no gallops, no murmurs, no rubs ABDOMEN: Soft, nontender. No hepatosplenomegaly, normal bowel sounds, no guar ding or rigidity. EXTREMITIES: No clubbing, no edema, no cyanosis, 2+ pulses and upper and lower extremities. MUSCULOSKELETAL: Muscle strength and tone normal. SPINE: No scoliosis or deformity SKIN: No rashes CENTRAL NERVOUS SYSTEM: Alert and oriented -3. No focal deficits, tone is normal in all 4 extremities. PSYCHIATRIC: Unresponsive - Labs CBC & Chem 7: 11/26/19 06:55 11/29/19 06:11 Labs: Abnormal Lab Results - Last 24 Hours (Table) 11/28/19 11/28/19 11/29/19 Range/Units 16:24 20:24 06:11 Chloride 85 L (98-107) mmol/L Carbon Dioxide 45 H* (22-30) mmol/L BUN 66 H (7-17) mg/dL Creatinine 1.90 H (0.52-1.04) mg/dL Glucose 195 H (74-99) mg/dL POC Glucose (mg/dL) 296 H 242 H (75-99) mg/dL 11/29/19 11/29/19 Range/Units 06:21 11:09 Chloride (98-107) mmol/L Carbon Dioxide (22-30) mmol/L BUN (7-17) mg/dL Creatinine (0.52-1.04) mg/dL Glucose (74-99) mg/dL POC Glucose (mg/dL) 231 H 392 H (75-99) mg/dL Assessment and Plan Plan: Assessment and plan #1 congestive heart failure, LV function unknown #2 atrial fibrillation with rapid ventricular response, appears to be of new onset for the patient. 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 DNP note has been reviewed, I agree with a documented findings and plan of care. Patient was seen and examined.
--- NOTE | 2019-11-29 14:58 | PN ---
PROGRESS NOTE PULMONARY/CRITICAL CARE PROGRESS NOTE DATE OF SERVICE: November 29, 2019 HISTORY: This is a 79-year-old female who was admitted with a diagnosis of acute on chronic hypoxemic and hypercapnic respiratory failure secondary to the patient's known history of congestive heart failure, with impaired LV function. Her ejection fraction is estimated to be 40-45 percent. In addition, the patient suffers from significant valvular heart disease in the form of moderate mitral regurgitation, moderate tricuspid regurgitation, and moderately severe pulmonary hypertension with right-sided pressures of 56 mmHg. Anyway, the patient seemed to be doing a lot better today. The patient is sitting at the bedside. She is awake and alert. Over the last couple days, she has been on her BiPAP. She does have a history of new onset atrial fibrillation, a recent hospitalization for bibasilar pneumonia and also advanced COPD. PHYSICAL EXAMINATION: VITAL SIGNS: Current vital signs are reviewed. Temperature is 98.1, heart rate 88, respiratory rate 16, blood pressure 113/60, mean 77. 3 L saturation 99%. GENERAL: Appears in no acute distress. HEENT: Examination is grossly unremarkable. Mucous membranes are moist. Nasal O2 noted. NECK: Supple. Full range of motion. No adenopathy. Neck veins are flat. CARDIOVASCULAR: Examination reveals distant heart sounds. There is a systolic murmur. Heart rate about mid 80s. S1, S2 normal. LUNGS: Reveal mostly clear breath sounds. A few scattered crackles at the bases. ABDOMEN: Soft. EXTREMITIES are intact. There is no edema. SKIN: Without rash. NEUROLOGIC: Examination is brief but nonfocal. LABS: Reviewed. Sodium 140, potassium 3.9, chloride 85, CO2 45, BUN and creatinine were 66 and 1.90. Anion gap is 10. Microbiology is pending or negative. Her last chest x-ray was yesterday which showed a left pleural effusion with some basilar atelectasis or infiltrate. There was cardiomegaly. Medications are reviewed. Everything seems to be appropriate. We did drop back her Lasix dose on Sunday. In addition, the patient is complaining about her Mccall catheter. Dr. Dye says the catheter can come out, which makes the patient happy. ASSESSMENT: 1. Acute on chronic hypoxemic and hypercapnic respiratory failure, related to an acute exacerbation of congestive heart failure in a patient with systolic heart failure, and ejection fraction of 40% to 45%. 2. Valvular heart disease in the form of moderate MR, moderate tricuspid regurgitation, and moderately severe pulmonary hypertension with right-sided pressures of 56 mmHg. 3. Elevated troponins, likely related to supply-demand mismatch in the patient's underlying congestive heart failure. 4. New onset atrial fibrillation with RVR. 5. Recent hospitalization for bibasilar pneumonia and bilateral pleural effusion at [facility], October 2019. 6. Advanced oxygen-dependent chronic obstructive pulmonary disease. 7. Hypertension. 8. Hyperlipidemia. 9. Diabetes mellitus. 10.Gastroesophageal reflux disease. 11.History of tobacco abuse, currently on remission. 12.Volume contraction alkalosis secondary to excessive diuretics. PLAN: The Lasix was reduced in dose. It appears that her bicarbonate concentration has stabilized. The patient is much more clinically awake and alert. She is sitting at bedside. She is talking to family members. She does want her Mccall catheter out. Dr. Dye agrees to take it out. We will continue to follow. Prognosis is guarded. MMODL / IJN: [id number] /
[2019-11-29 16:15] LABS: Glucose,Whole Blood 232 mg/dL (75-99)
[2019-11-29 20:28] LABS: Glucose,Whole Blood 311 mg/dL (75-99)
[2019-11-29] MEDS: PRAVASTATIN SODIUM 40 MG TAB PO SCH (22:53)
[2019-11-30 07:03] LABS: Glucose,Whole Blood 231 mg/dL (75-99)
[2019-11-30] MEDS: FLUTICASONE 44 MCG INHALER INHALATION SCH ×2 (07:37→19:51)
[2019-11-30] MEDS: IPRATROPIUM 0.5 MG/2.5 ML NEBU INHALATION SCH ×4 (07:37→19:51)
--- NOTE | 2019-11-30 07:43 | XR ---
EXAMINATION TYPE: XR chest 1V portable DATE OF EXAM: 11/30/2019 COMPARISON: 11/28/2019 HISTORY: Shortness of breath. Follow-up for congestive heart failure. TECHNIQUE: Single frontal view of the chest is obtained. FINDINGS: Retrocardiac airspace disease is slightly improved from the prior. Cardiomediastinal silho uette again is shifted and enlarged. Chronic interstitial prominence. Resolved trace right pleural ef fusion. Diffuse osseous demineralization. IMPRESSION: Improving left basilar opacity, possible small pleural effusion with atelectasis and sta ble diffuse chronic interstitial prominence.
[2019-11-30] MEDS: APIXABAN 5 MG TAB PO SCH ×2 (07:58→20:32)
[2019-11-30] MEDS: FAMOTIDINE 20 MG TAB PO SCH (07:58)
[2019-11-30] MEDS: FUROSEMIDE 20 MG TAB PO SCH (07:58)
[2019-11-30] MEDS: ASPIRIN 81 MG PO SCH (07:58)
[2019-11-30] MEDS: METOPROLOL TARTRATE 50 MG TAB PO SCH ×3 (07:58→21:43)
[2019-11-30] MEDS: ALPRAZolam 0.25 MG TAB PO SCH ×2 (07:58→20:32)
[2019-11-30] MEDS: LACTOBACILLUS ACIDOPH & BULGAR 1 EACH PACKET PO SCH (07:59)
[2019-11-30] MEDS: INSULIN ASPART (NovoLOG) 100 UNIT/ML VIAL SQ SCH ×4 (07:59→21:44)
[2019-11-30] MEDS: FERROUS SULFATE 325 MG TAB PO SCH (07:59)
[2019-11-30] MEDS: FENOFIBRATE 160 MG TAB PO SCH (07:59)
[2019-11-30 08:48] LABS: Calcium 9.7 mg/dL (8.4-10.2); Potassium 4.2 mmol/L (3.5-5.1)
[2019-11-30] MEDS: GLIMEPIRIDE 2 MG TAB PO SCH ×2 (09:48→16:37)
[2019-11-30 11:39] LABS: Glucose,Whole Blood 309 mg/dL (75-99)
[2019-11-30] MEDS ORDERED: POLYETHYLENE GLYCOL 3350 17 GM POWD.PACK PO PRN (11:53)
[2019-11-30] MEDS ORDERED: SENNOSIDES 8.6 MG TAB PO PRN (11:53)
--- NOTE | 2019-11-30 12:38 | P.PN ---
Subjective 73-year-old female admitted for new onset atrial fibrillation and heart failure exacerbation patient's EF is 40-45%. Patient has a moderate pulmonary hypertension on echo cardiac exam. Patient is being started on Eliquis after verification with insurance. had significant urine output since yesterday patient on IV Lasix drip at this time this is being managed by cardiologypatient is presently in 6 L of oxygen. 11/26/2019 Patient required BiPAP yesterday. Presently on 6 L of oxygen today. Patient remains on IV Lasix drip creatinine remained stable. Repeat chest x-ray is pending patient feels really tired and weak 11/27/2019 Patient is being switched to oral Lasix, patient does have hypercapnia as well as hypoxia. Patient bicarbonate on admission is around 28. She appears to have some contraction alkalosis with the bicarbonate going up to 48. 11/28/2019 Patient clinically looks much better and then started going up will hold off on HENRY inhibitor temporarily. Chest x-ray showing mild worsening of heart failure. She is much less tired much less short of breath 11/29/2019 Patient is doing much better today but Her renal function worsened with this can you lisinopril as today and the Lasix dose is being decreased to 20 mg by pulmonary to monitor her kidney function if it improves will be discharged tomorrow. Mccall catheter Removed 11/30/2019 Patient respiratory status and the x-ray findings improved but the patient's creatinine continued to cooperate minimally elevated compared to yesterday nephrology will evaluated the patient repeat the basic metabolic profile tomorrow once the test around that and patient will be discharged. his Lasix will be discontinued at this time. Constitutional: denied any fever. Cardio vascular: denied any chest pain, palpitations Gastrointestinal denied any nausea vomiting Pulmonary: No shortness of breath Neurologic denied any new focal deficits All inpatient medications were reviewed and appropriate changes in these medications as dictated in the interval history and assessment and plan. Objective - Vital Signs Vital signs: Vital Signs Temp 97.9 F 11/30/19 11:37 Pulse 89 11/30/19 11:37 Resp 16 11/30/19 11:37 BP 134/68 11/30/19 11:37 Pulse Ox 99 11/30/19 11:37 Intake & Output 11/29/19 11/30/19 11/30/19 18:59 06:59 18:59 Intake Total 600 250 Output Total 300 Balance 300 250 Weight 72.7 kg Intake: Oral 600 250 Output: Urine 300 Other: Voiding Method Bedside Commode Bedside Commode Bedside Commode # Voids 3 - Exam PHYSICAL EXAMINATION: GENERAL: The patient is alert and oriented x3, not in any acute distress. Well developed, well nourished. Patient looks much better today HEENT: Pupils are round and equally reacting to light. EOMI. No scleral icterus. No conjunctival pallor. Normocephalic, atraumatic. No pharyngeal erythema. No thyromegaly. CARDIOVASCULAR: S1 and S2 present. No murmurs, rubs, or gallops. PULMONARY: Chest is clear to auscultation, no wheezing or crackles. ABDOMEN: Soft, nontender, nondistended, normoactive bowel sounds. No palpable organomegaly. MUSCULOSKELETAL: No joint swelling or deformity. EXTREMITIES: No cyanosis, clubbing, or pedal edema. NEUROLOGICAL: Gross neurological examination did not reveal any focal deficits. SKIN: No rashes. - Labs CBC & Chem 7: 11/26/19 06:55 11/30/19 08:17 Labs: Abnormal Lab Results - Last 24 Hours (Table) 11/29/19 11/29/19 11/30/19 Range/Units 16:14 20:21 07:02 Sodium (137-145) mmol/L Chloride (98-107) mmol/L Carbon Dioxide (22-30) mmol/L BUN (7-17) mg/dL Creatinine (0.52-1.04) mg/dL Glucose (74-99) mg/dL POC Glucose (mg/dL) 232 H 311 H 231 H (75-99) mg/dL 11/30/19 11/30/19 Range/Units 08:17 11:38 Sodium 136 L (137-145) mmol/L Chloride 84 L (98-107) mmol/L Carbon Dioxide 41 H* (22-30) mmol/L BUN 85 H (7-17) mg/dL Creatinine 2.12 H (0.52-1.04) mg/dL Glucose 269 H (74-99) mg/dL POC Glucose (mg/dL) 309 H (75-99) mg/dL Assessment and Plan Plan: -acute hypoxic respiratory failure most probably secondary to congestive heart failure chronic systolic dysfunction with acute exacerbation. Patient is presently of BiPAP on 3 L of oxygen. Patient does have troponin elevation because of CHF patient is presently onEliquis patient is a patient has significant contraction alkalosis because of which her Lasix acute renal failure: Secondary to excessive diuresis cutting down the dose 6 to Lasix dose to 20 mg HENRY inhibitor was discontinued will monitor kidney function tomorrow if it starts improving patient will be discharged on a low-dose of Lasix congestive heart failure chronic systolic dysfunction EF of around 40-45%: Lisinopril will be temporary held because of acute renal dysfunction creatinine went up to 2.1 -Both hypoxic and hypercapnic respiratory failure: BiPAP as needed - new onset atrial fibrillation with rapid ventricular rate: Patient was started on metoprolol heart rate is fairly well controlled, patient is on Eliquis for anticoagulation -Hypertension \ -hyperlipidemia -type 2 diabetes mellitus -Gastric esophageal reflux disease -Sick euthyroid syndrome for which patient will need repeat TSH in about a month
--- NOTE | 2019-11-30 12:59 | P.PN ---
Subjective Progress Note Date: 11/30/19 Principal diagnosis: Acute exacerbation of chronic hypoxic and hypercapnic respiratory failure as well as an acute exacerbation of systolic congestive heart failure. 79-year-old white female patient with known history of chronic obstructive pulmonary disease on home oxygen at 2-1/2 L/m, previous history of smoking, diabetes mellitus type 2, previous episode of pneumonia, hypertension, hyperlipidemia, GERD/reflux, with recent history of hospitalization at [facility] in the beginning of September for bilateral pneumonia, and small bilateral pleural effusions. Patient was treated with Rocephin and azithromycin during admission. On 11/24/2019 patient presented to this hospital for evaluation of shortness of breath. admission chest x-ray showed prominence and central vascularity and increased interstitium, and bilateral pleural effusions. she was hypoxic, she was placed on 6 L of oxygen and subsequently on BiPAP support at pressures of 12 and 5 and FiO2 of 40%. patient was in A. fib with RVR. lab work showed appointments on chronically 0.3, hemoglobin of 10.3, platelet count was 385, lymphocytes 1.5, INR is 1.2, electrolytes were within normal limits, B1 is 23, creatinine is 1.01, glucose was 224, plasma lactic acid was 0.8, troponin topped out at 0.075, proBNP was 7190, TSH was 0.328. she was started on IV Lasix at 40 mg every 12 hours which was subsequently changed to Lasix infusion at 10 mg per hour. Patient is in -3 L net fluid balance over the last 24 hours, this morning she is feeling better, breathing easier, remains on BiPAP support, and she would like to trial off the BiPAP support. echocardiogram is pending, COVID 19 testing is in progress, and the results are pending at this time. On 11/26/2019 patient seen in follow-up in the selective care unit. She is awake and alert, remains on BiPAP support, with pressures 12/5, and FiO2 of 40%, her pulse ox is 99%, patient has been tolerating trials off the BiPAP support on high flow nasal cannula. Patient remains on IV Lasix drip at 10 mg per hour, IV 0.9 normal saline at 5 ML per hour, remains dyspneic, patient has been and 1.2 L negative fluid balance over the last 24 hours. it security consultant still shows atrial fibrillation with the better controlled rate, patient is on oral metoprolol 50 mg twice daily, and Eliquis On 11/27/2019 patient seen in follow-up on selective care unit. She remains on BiPAP support, with pressures of 12/5, and FiO2 of 40%. This morning I received a call from the nurse about total critical serum CO2 of 43, and blood gas was ordered in view of reported lethargy. Blood gas showed pO2 of 78, pCO2 of 73, and pH of 7.45, consistent with chronic hypercapnic respiratory failure. Patient is on oral Lasix, 40 mg twice daily, she has been 1.7 L and urine output over the last 24 hours, she is on breathing treatments. No fever or chills. Hemodynamically stable, sinus rhythm on the monitor with frequent PACs. Yesterday's chest x-ray showed stable bilateral infiltrates and pleural effusion with diffuse interstitial pattern. During our evaluation patient is easily arousable, she is answering questions appropriately, appears to be in no acute distress, lung sounds are diminished at the bases, patient is agreeable to try high flow nasal cannula trial. On 11/28/2019 patient seen in follow-up on selective care unit. Patient is slee py, but is in no acute distress, patient is currently on high flow nasal cannula, she did wear BiPAP through the night. She continues on oral diuretics, 40 mg twice daily, she is in -900 mL fluid balance over the last 24 hours, no fever or chills, no complaints of chest pain. Today's chest x-ray shows a slight increase in the moderately sized left pleural effusion with adjacent atelectasis and consolidation, and trace right pleural effusion. Today's labs have been reviewed, showing sodium of 141, potassium 3.3, chloride is 85, CO2 is 46, BUN of 48, and creatinine is 1.21. Patient has had some worsening of her renal function, she is developing metabolic alkalosis possibly related to diure tics and volume contraction. We'll cut back the Lasix dose to 20 mg once daily The patient is seen today 11/30/2019 in follow-up on the regular medical floor. She is currently sitting up at the bedside. Awake and alert in no acute distress. No worsening shortness of breath, cough or congestion. She is maintaining O2 saturations in the high 90s on 3 L/m per nasal cannula. Chest x- ray reveals improved aeration and clearing of the left basilar opacity, small bilateral effusions/atelectasis. She's afebrile. Hemodynamically stable. Sodium 136. Potassium 4.2. Chloride 84. Bicarb improved to 41. Creatinine 2.12. Glucose 269. She is continued on bronchodilators, diuretics, anticoagula ayanna with Eliquis. Objective - Vital Signs Vital signs: Vital Signs Temp 97.9 F 11/30/19 11:37 Pulse 89 11/30/19 11:37 Resp 16 11/30/19 11:37 BP 134/68 11/30/19 11:37 Pulse Ox 99 11/30/19 11:37 Intake & Output 11/29/19 11/30/19 11/30/19 18:59 06:59 18:59 Intake Total 600 250 Output Total 300 Balance 300 250 Weight 72.7 kg Intake: Oral 600 250 Output: Urine 300 Other: Voiding Method Bedside Commode Bedside Commode Bedside Commode # Voids 3 - Exam GENERAL EXAM: Awake, alert 71-year-old female patient, on 3 L nasal cannula, comfortable in no apparent distress. HEAD: Normocephalic/atraumatic. EYES: Normal reaction of pupils, equal size. Conjunctiva pink, sclera white. NOSE: Clear with pink turbinates. THROAT: No erythema or exudates. NECK: No masses, no JVD, no thyroid enlargement, no adenopathy. CHEST: No chest wall deformity. Symmetrical expansion. LUNGS: Diminished air entry with faint crackles in the posterior bases left greater than right. CVS: Irregular rate and rhythm, normal S1 and S2, no gallops, no murmurs, no rubs ABDOMEN: Soft, nontender. No hepatosplenomegaly, normal bowel sounds, no guar ding or rigidity. EXTREMITIES: No clubbing, no edema, no cyanosis, 2+ pulses and upper and lower extremities. MUSCULOSKELETAL: Muscle strength and tone normal. SPINE: No scoliosis or deformity SKIN: No rashes CENTRAL NERVOUS SYSTEM: No focal deficits, tone is normal in all 4 extremities. PSYCHIATRIC: Alert and oriented -3. Appropriate affect. Intact judgment and insight. - Labs CBC & Chem 7: 11/26/19 06:55 11/30/19 08:17 Labs: Abnormal Lab Results - Last 24 Hours (Table) 11/29/19 11/29/19 11/30/19 Range/Units 16:14 20:21 07:02 Sodium (137-145) mmol/L Chloride (98-107) mmol/L Carbon Dioxide (22-30) mmol/L BUN (7-17) mg/dL Creatinine (0.52-1.04) mg/dL Glucose (74-99) mg/dL POC Glucose (mg/dL) 232 H 311 H 231 H (75-99) mg/dL 11/30/19 11/30/19 Range/Units 08:17 11:38 Sodium 136 L (137-145) mmol/L Chloride 84 L (98-107) mmol/L Carbon Dioxide 41 H* (22-30) mmol/L BUN 85 H (7-17) mg/dL Creatinine 2.12 H (0.52-1.04) mg/dL Glucose 269 H (74-99) mg/dL POC Glucose (mg/dL) 309 H (75-99) mg/dL Assessment and Plan Assessment: #1. Acute on chronic hypoxic and hypercapnic respiratory failure related to acute exacerbation of congestive heart failure with impaired LV function, and EF of 40-45%, moderate MR, moderate tricuspid regurgitation, and moderately severe pulmonary hypertension and right-sided pressures of 56 Reason mercury #2. Elevated troponins, likely related to acute exacerbation of CHF #3. New onset A. fib with RVR, anticoagulated with Eliquis #4. Recent hospitalization for bibasilar pneumonia and bilateral pleural effusions at [facility] in the beginning of October 2019 #5. Advanced COPD with chronic hypoxemic respiratory failure, and patient wears and a half liters of oxygen at home on a regular basis #6. Hypertension #7. Hyperlipidemia #8. Diabetes mellitus #9. GERD/reflux #10. History of tobacco abuse, currently in remission #11. Metabolic alkalosis related to volume contraction and diuretic therapy Plan: The patient was seen and evaluated by Dr. Carbajal Chest x-ray and labs reviewed Stable from the pulmonary standpoint Probable discharge in the a.m. Monitoring kidney function and electrolytes We will continue to follow I, the cosigning physician, performed a history & physical examination of the patient. Lungs sounds with faint crackles in the posterior bases left greater than right, diminished. Maintaining good O2 saturations in the 90s on 3 L/m per nasal cannula. I discussed the assessment and plan of care with my nurse practitioner, Yvonne Key. I attest to the above note as dictated by her.
[2019-11-30] MEDS: NYSTATIN 100,000 UNIT/ML SUSP 500,000 UNIT/5 ML CUP PO SCH ×3 (13:34→21:44)
--- NOTE | 2019-11-30 14:47 | US ---
EXAMINATION TYPE: US kidneys/renal and bladder DATE OF EXAM: 11/30/2019 COMPARISON: NONE CLINICAL HISTORY: rf. EXAM MEASUREMENTS: Right Kidney: 11.5 x 4.8 x 5.3 cm Left Kidney: 10.9 x 4.8 x 4.6 cm Post Void Residual Volume: mL Right Kidney: septated cyst vs cluster of cysts measuring 8.4 x 4.9 x 5.6cm Left Kidney: No hydronephrosis or masses seen Bladder: not seen, not distended IMPRESSION: Right renal cortical cysts. No evidence of a solid renal mass or obstruction. Urinary bladder not erick luated.
--- NOTE | 2019-11-30 16:26 | CONS ---
CONSULTATION REASON FOR CONSULT: Renal failure. HISTORY OF PRESENT ILLNESS: The patient is a 79-year-old female who was initially admitted to the hospital on 11/24/2019 with complaints of shortness of breath. The patient was noted to have congestive heart failure and she has been diuresed. Echocardiogram showed ejection fraction of 40-45 percent. Patient's serum creatinine on admission was 1.0 on 11/24/2019. It has now increased to 2.1. The patient has not received any IV contrast during hospitalization. Blood pressure has been on the lower side more recently with systolic 93 yesterday. Lasix is currently down to 20 mg p.o. daily. The patient has also been alkalotic and the CO2 has improved now down to 41 from 46 previously. Currently, patient denies any shortness of breath. Chest x-ray shows improvement from admission. The patient was on HENRY inhibitors, which was discontinued on 11/28/2019. Currently patient is voiding. She did have an indwelling catheter initially. PAST MEDICAL HISTORY: Significant for COPD, hypertension, hyperlipidemia. SOCIAL HISTORY: Negative for smoking, drug abuse or alcohol abuse. ALLERGIES: INCLUDE ASPIRIN, SHELLFISH. MEDICATIONS: Medications at home prior to admission included Glucophage, Pravachol, Zantac, Spiriva, iron, aspirin, probiotics, omega-3, fenofibrate, Diltiazem, Ventolin, Amaryl, Zestril, inhalers. PHYSICAL EXAMINATION: Patient is currently comfortable, awake not in any acute distress. Patient is not a good historian. Blood pressure is 104/57, heart rate 88 per minute. She is afebrile. Examination of the heart S1, S2. Examination of the lungs: Decreased breath sounds at bases. Abdomen is soft, nontender. Examination of lower extremities shows no evidence of edema. PRODUCT DISTRIBUTION SPECIALIST exam grossly intact. LAB: Show sodium 136, potassium 4.2, chloride 84, CO2 is 41, BUN 85, creatinine 2.12. UA on November 26 shows trace blood, no protein, WBCs 12. ASSESSMENT: 1. Acute kidney injury associated with hypotension, hypoperfusion and recent diuresis. The patient's blood pressure was low with systolic at 93 mmHg on November 28. Patient had been on HENRY inhibitors which were discontinued on November 27. Currently she is nonoliguric. Lasix is down significantly to only 20 mg p.o. daily and chest x-ray shows significant improvement since admission. Continue to maintain patient off HENRY inhibitors. Avoid hypotension. May continue current dose of Lasix and repeat labs in a.m. I will hold off on giving any IV fluids as the patient was recently diuresed for congestive heart failure. 2. Cardiomyopathy, ejection fraction 40 to 45% this admission. 3. Hypoxic respiratory failure along with hypercapnia, being followed by Pulmonary. 4. Metabolic alkalosis associated with recent diuresis as well as a component of alkalosis from hypercapnia. 5. New onset atrial fibrillation with RVR currently with controlled ventricular response, maintained on Eliquis. 6. Type 2 diabetes. PLAN: Check ultrasound of the kidneys. Repeat labs in a.m. Avoid hypotension. I agree with discontinuation of HENRY inhibitors and repeat labs in a.m. Thank you for this consultation. We will continue to follow the patient with you during her hospitalization. KVNG / JASMINN: [id number] /
[2019-11-30 17:17] LABS: Glucose,Whole Blood 282 mg/dL (75-99)
[2019-11-30 20:56] LABS: Glucose,Whole Blood 218 mg/dL (75-99)
[2019-11-30] MEDS: PRAVASTATIN SODIUM 40 MG TAB PO SCH (21:43)
[2019-12-01 07:31] LABS: Potassium 4.9 mmol/L (3.5-5.1)
[2019-12-01] MEDS: FLUTICASONE 44 MCG INHALER INHALATION SCH ×2 (07:36→20:11)
[2019-12-01] MEDS: IPRATROPIUM 0.5 MG/2.5 ML NEBU INHALATION SCH ×4 (07:44→20:11)
[2019-12-01 07:48] LABS: Glucose,Whole Blood 67 mg/dL (75-99)
[2019-12-01] MEDS: ALPRAZolam 0.25 MG TAB PO SCH ×2 (08:12→20:55)
[2019-12-01] MEDS: FENOFIBRATE 160 MG TAB PO SCH (08:12)
[2019-12-01] MEDS: APIXABAN 5 MG TAB PO SCH ×2 (08:12→20:56)
[2019-12-01] MEDS: FERROUS SULFATE 325 MG TAB PO SCH (08:13)
[2019-12-01] MEDS: GLIMEPIRIDE 2 MG TAB PO SCH ×2 (08:13→17:25)
[2019-12-01] MEDS: METOPROLOL TARTRATE 50 MG TAB PO SCH ×3 (08:13→20:55)
[2019-12-01] MEDS: ASPIRIN 81 MG PO SCH (08:13)
[2019-12-01] MEDS: LACTOBACILLUS ACIDOPH & BULGAR 1 EACH PACKET PO SCH (08:13)
[2019-12-01] MEDS: FAMOTIDINE 20 MG TAB PO SCH (08:14)
[2019-12-01] MEDS: NYSTATIN 100,000 UNIT/ML SUSP 500,000 UNIT/5 ML CUP PO SCH ×4 (08:14→20:56)
[2019-12-01] MEDS: INSULIN ASPART (NovoLOG) 100 UNIT/ML VIAL SQ SCH ×4 (08:14→21:03)
[2019-12-01 08:28] LABS: Glucose,Whole Blood 109 mg/dL (75-99)
[2019-12-01 11:14] VITALS: BMI 26.9
[2019-12-01 12:36] LABS: Glucose,Whole Blood 160 mg/dL (75-99)
--- NOTE | 2019-12-01 13:40 | P.PN ---
Subjective Progress Note Date: 12/01/19 On today's evaluation of [id number] and seeing this patient for a follow-up. She is a case of COPD with chronic hypoxic respiratory failure maintained on 10 L of oxygen by nasal cannula in addition to diabetes mellitus and hypertension hyperlipidemia and previous bouts of pneumonia for which she has been ho spitalized and [facility] specifically in October 2019. The patient came to us with worsening shortness of breath and the patient required BiPAP for respiratory support. She was found to be in atrial fibrillation. Covid 19 was negative. The patient had an echocardiogram that showed impaired LV function with an ejection fraction of around 40-45% and there was evidence of moderate tricuspid regurgitation, severe pulmonary hypertension with a PA pressure of 56. There was also signs of fluid overload. The patient had several blood gases and the patient was found to have hypercapnic respiratory failure. The patient was treated with a combination of BiPAP, diuretics and bronchodilators and her atrial fibrillation was also managed. The chest x-ray showed a left-sided pleural effusion with a trace right-sided pleural effusion. The patient during the course of the treatment had some worsening renal function she developed also metabolic alkalosis secondary to volume contraction and diuretics. She is currently, comfortable off the BiPAP and she is on 3 L of oxygen by nasal cannula. She is on metoprolol 50 mg by mouth 3 times a day regarding rate control in long-term anticoagulation with Eliquis. The patient is also off the diuretics for now as she developed a component of an acute kidney injury. Creatinine is up to 2.2 with a serum bicarb of 41. Objective - Vital Signs Vital signs: Vital Signs Temp 97.5 F L 12/01/19 11:50 Pulse 88 12/01/19 12:00 Resp 18 12/01/19 11:50 BP 102/62 12/01/19 11:50 Pulse Ox 99 12/01/19 11:50 Intake & Output 11/30/19 12/01/19 12/01/19 18:59 06:59 18:59 Intake Total 300 Balance 300 Weight 73.4 kg 73.4 kg Intake: Oral 300 Other: Voiding Method Bedside Commode Bedside Commode Bedside Commode # Voids 1 1 2 - Exam GENERAL EXAM: Awake, alert 71-year-old female patient, on 3 L nasal cannula, comfortable in no apparent distress. HEAD: Normocephalic/atraumatic. EYES: Normal reaction of pupils, equal size. Conjunctiva pink, sclera white. NOSE: Clear with pink turbinates. THROAT: No erythema or exudates. NECK: No masses, no JVD, no thyroid enlargement, no adenopathy. CHEST: No chest wall deformity. Symmetrical expansion. LUNGS: Diminished air entry with faint crackles in the posterior bases left greater than right. CVS: Irregular rate and rhythm, normal S1 and S2, no gallops, no murmurs, no rubs ABDOMEN: Soft, nontender. No hepatosplenomegaly, normal bowel sounds, no guarding or rigidity. EXTREMITIES: No clubbing, no edema, no cyanosis, 2+ pulses and upper and lower extremities. MUSCULOSKELETAL: Muscle strength and tone normal. SPINE: No scoliosis or deformity SKIN: No rashes CENTRAL NERVOUS SYSTEM: No focal deficits, tone is normal in all 4 extremities. PSYCHIATRIC: Alert and oriented -3. Appropriate affect. Intact judgment and insight. - Labs CBC & Chem 7: 11/26/19 06:55 12/01/19 06:10 Labs: Abnormal Lab Results - Last 24 Hours (Table) 11/30/19 11/30/19 12/01/19 Range/Units 17:16 20:54 06:10 Chloride 85 L (98-107) mmol/L Carbon Dioxide 41 H* (22-30) mmol/L BUN 93 H (7-17) mg/dL Creatinine 2.21 H (0.52-1.04) mg/dL Glucose 69 L (74-99) mg/dL POC Glucose (mg/dL) 282 H 218 H (75-99) mg/dL 12/01/19 12/01/19 12/01/19 Range/Units 07:46 08:24 11:15 Chloride (98-107) mmol/L Carbon Dioxide (22-30) mmol/L BUN (7-17) mg/dL Creatinine (0.52-1.04) mg/dL Glucose (74-99) mg/dL POC Glucose (mg/dL) 67 L 109 H 160 H (75-99) mg/dL Assessment and Plan Plan: #1. Acute on chronic hypoxic and hypercapnic respiratory failure related to acute exacerbation of congestive heart failure with impaired LV function, and EF of 40-45%, moderate MR, moderate tricuspid regurgitation, and moderately severe pulmonary hypertension and right-sided pressures of 56 Reason mercury. During the course of the treatment the patient required BiPAP for respiratory support. The patient was diuresed aggressively with IV Lasix. She developed an acute kidney injury. She also developed some metabolic alkalosis secondary to aggressive diuretic use. Blood gases showed acute on top of chronic hypoxic respiratory failure in addition to hypercapnic respiratory failure. She is currently on 3 L about 2 by nasal cannula. #2. Elevated troponins, likely related to acute exacerbation of CHF #3. New onset A. fib with RVR, anticoagulated with Eliquis, and the patient's rate is controlled with metoprolol 50 mg 3 times a day. #4. Recent hospitalization for bibasilar pneumonia and bilateral pleural effusions at [facility] in the beginning of October 2019 #5. Advanced COPD with chronic hypoxemic respiratory failure, and patient wears and a half liters of oxygen at home on a regular basis #6. Hypertension #7. Hyperlipidemia #8. Diabetes mellitus #9. GERD/reflux #10. History of tobacco abuse, currently in remission #11. Metabolic alkalosis related to volume contraction and diuretic therapy #12 acute kidney injury in the creatinine is up to 2.2 Plan Keep diuretics on hold Continue metoprolol Continue Eliquis Monitor renal function Keep oxygen 3 systolic is a cannula Continue rest of the medications as prescribed including her nebulized medications. We'll follow
[2019-12-01] MEDS: PHENAZOPYRIDINE 200 MG TAB PO SCH ×2 (15:28→20:56)
--- NOTE | 2019-12-01 15:51 | P.PN ---
Subjective Progress Note Date: 12/01/19 Principal diagnosis: 73-year-old female admitted for new onset atrial fibrillation and heart failure exacerbation patient's EF is 40-45%. Patient has a moderate pulmonary hyperten alonzo on echo cardiac exam. Patient is being started on Eliquis after verification with insurance. had significant urine output since yesterday patient on IV Lasix drip at this time this is being managed by cardiologypatient is presently in 6 L of oxygen. 11/26/2019 Patient required BiPAP yesterday. Presently on 6 L of oxygen today. Patient remains on IV Lasix drip creatinine remained stable. Repeat chest x-ray is pending patient feels really tired and weak 11/27/2019 Patient is being switched to oral Lasix, patient does have hypercapnia as well as hypoxia. Patient bicarbonate on admission is around 28. She appears to have some contraction alkalosis with the bicarbonate going up to 48. 11/28/2019 Patient clinically looks much better and then started going up will hold off on HENRY inhibitor temporarily. Chest x-ray showing mild worsening of heart failure. She is much less tired much less short of breath 11/29/2019 Patient is doing much better today but Her renal function worsened with this can you lisinopril as today and the Lasix dose is being decreased to 20 mg by pu lmonary to monitor her kidney function if it improves will be discharged tomorrow. Mccall catheter Removed 11/30/2019 Patient respiratory status and the x-ray findings improved but the patient's creatinine continued to cooperate minimally elevated compared to yesterday nephrology will evaluated the patient repeat the basic metabolic profile tomorrow once the test around that and patient will be discharged. his Lasix will be discontinued at this time. Constitutional: denied any fever. Cardio vascular: denied any chest pain, palpitations Gastrointestinal denied any nausea vomiting Pulmonary: No shortness of breath Neurologic denied any new focal deficits All inpatient medications were reviewed and appropriate changes in these medications as dictated in the interval history and assessment and plan. 12/01/2019 Patient was seen and evaluated in follow-up today with no acute overnight issu es. Patient states she is having some dysuria with frequency and burning with urination and was given some peritoneum. Patient did recently have a Mccall catheter which has since been removed. Will repeat urinalysis with reflex to culture. Patient will be given a dose of Rocephin as well. Patient's creatinine today slightly worsened at 2.21. Multiple medical consultations following. Patient is off Lasix at this time and will continue to hold due to worsening creatinine. Nephrology is following. Currently no reports of chest pain or palpitations. No reports of worsening shortness of breath. Patient is afebrile. No reports of nausea or vomiting and patient is tolerating diet. Patient is currently on 3 L of oxygen and satting 99%. Patient states she normally uses 2-3 L at home. Objective - Vital Signs Vital signs: Vital Signs Temp 97.5 F L 12/01/19 11:50 Pulse 88 12/01/19 12:00 Resp 18 12/01/19 11:50 BP 102/62 12/01/19 11:50 Pulse Ox 99 12/01/19 11:50 Intake & Output 11/30/19 12/01/19 12/01/19 18:59 06:59 18:59 Intake Total 300 Balance 300 Weight 73.4 kg 73.4 kg Intake: Oral 300 Other: Voiding Method Bedside Commode Bedside Commode Bedside Commode # Voids 1 1 2 - Exam GENERAL: The patient is alert and oriented x3, not in any acute distress. Well developed, well nourished. HEENT: Pupils are round and equally reacting to light. EOMI. No scleral icterus. No conjunctival pallor. Normocephalic, atraumatic. No pharyngeal erythema. No thyromegaly. CARDIOVASCULAR: S1 and S2 present. No murmurs, rubs, or gallops. PULMONARY: Chest is clear to auscultation, no wheezing or crackles. ABDOMEN: Soft, nontender, nondistended, normoactive bowel sounds. No palpable organomegaly. MUSCULOSKELETAL: No joint swelling or deformity. EXTREMITIES: No cyanosis, clubbing, or pedal edema. NEUROLOGICAL: Gross neurological examination did not reveal any focal deficits. SKIN: No rashes. - Labs CBC & Chem 7: 11/26/19 06:55 12/01/19 06:10 Labs: Abnormal Lab Results - Last 24 Hours (Table) 11/30/19 11/30/19 12/01/19 Range/Units 17:16 20:54 06:10 Chloride 85 L (98-107) mmol/L Carbon Dioxide 41 H* (22-30) mmol/L BUN 93 H (7-17) mg/dL Creatinine 2.21 H (0.52-1.04) mg/dL Glucose 69 L (74-99) mg/dL POC Glucose (mg/dL) 282 H 218 H (75-99) mg/dL 12/01/19 12/01/19 12/01/19 Range/Units 07:46 08:24 11:15 Chloride (98-107) mmol/L Carbon Dioxide (22-30) mmol/L BUN (7-17) mg/dL Creatinine (0.52-1.04) mg/dL Glucose (74-99) mg/dL POC Glucose (mg/dL) 67 L 109 H 160 H (75-99) mg/dL Assessment and Plan Assessment: -acute hypoxic respiratory failure most probably secondary to congestive heart failure chronic systolic dysfunction with acute exacerbation. Patient is presently on 3 L of oxygen. Patient does have troponin elevation because of CHF patient is presently on Eliquis. Lasix remains on hold. Patient also remains on 3 L of oxygen via nasal cannula and states she wears 2-3 L at home. -Possible acute urinary tract infection. Patient is having dysuria with frequency and burning with urination. Will give Pyridium and obtain a urine with culture reflux. Patient will also be given a dose of Rocephin -acute renal failure: Secondary to excessive diuresis. Lasix is on hold. Creatinine slightly worse at 2.21. Will repeat BMP -congestive heart failure chronic systolic dysfunction EF of around 40-45% -Both hypoxic and hypercapnic respiratory failure: BiPAP as needed -new onset atrial fibrillation with rapid ventricular rate: Patient was started on metoprolol heart rate is fairly well controlled, patient is on Eliquis for anticoagulation -Hypertension -hyperlipidemia -type 2 diabetes mellitus -Gastroesophageal reflux disease -Sick euthyroid syndrome for which patient will need repeat TSH in about a month
[2019-12-01 16:04] LABS: Appearance,Urine Turbid (Clear); Bacteria,Urine Many /hpf; Bilirubin,Urine Negative (Negative); Blood,Urine Moderate (Negative); Color,Urine Yellow; Glucose,Urine (UA) Negative (Negative); Hyaline Casts,Urine 11 /lpf (0-2); Ketones,Urine Negative (Negative); Leukocyte Esterase,Urine Large (Negative); Nitrite,Urine Negative (Negative); PH, Urine 5.5 (5.0-8.0); Protein,Urine 1+ (Negative); RBC,Urine 125 /hpf (0-5); Specific Gravity,Urine 1.017 (1.001-1.035); Squamous Epithelial Cell,Urine 1 /hpf (0-4); Urobilinogen,Urine <2.0 mg/dL (<2.0); WBC,Urine >182 /hpf (0-5)
--- NOTE | 2019-12-01 16:19 | PN ---
PROGRESS NOTE Patient is seen for followup for acute kidney injury. Her serum creatinine continues to worsen. Patient's admission creatinine was 1.0. It is up to 2.2. She was admitted with CHF and has been diuresed. Lasix is currently on hold. Patient's blood pressure has been on the lower side. She has been voiding and she denies any chest pains or shortness of breath. PHYSICAL EXAMINATION: On examination today, blood pressure was 102/62, heart rate 83 per minute. Patient is afebrile. EXAMINATION OF THE HEART: S1 and S2. EXAMINATION OF LUNGS: Bilateral breath sounds are heard. ABDOMEN: Soft, non-tender. Examination of lower extremities shows no edema. [employer] exam is grossly intact. LABS: Labs show sodium 137, potassium 4.9, chloride 85. CO2 is 41, BUN 93, serum creatinine 2.2. ASSESSMENT: 1. Acute kidney injury associated with recent diuresis, hypotension and hypoperfusion as well in the setting of use of HENRY inhibitors, currently off of HENRY inhibitors. Serum creatinine is slightly higher than yesterday. Patient seems to have good urine output. Lasix was completely discontinued. I will check a postvoid residual. Currently patient is not on any nephrotoxic medications. 2. Cardiomyopathy, ejection fraction 40% to 45%. 3. Metabolic alkalosis associated with recent diuresis and some carbon dioxide retention. 4. New-onset atrial fibrillation with rapid ventricular response with controlled ventricular response maintained, on Eliquis. 5. Chronic hypoxic respiratory failure with hypercapnia, being followed by Pulmonary. PLAN: Continue off of Lasix. Encourage increased oral intake. If renal function is worse tomorrow I will add IV fluids, but hold off for now. Continue to hold off on HENRY inhibitors as well and other antihypertensive medications. MMODL / IJN: [id number] /
[2019-12-01 17:16] LABS: Glucose,Whole Blood 197 mg/dL (75-99)
[2019-12-01] MEDS: ACETAMINOPHEN TAB 325 MG TAB PO PRN (19:35)
[2019-12-01 20:24] LABS: Glucose,Whole Blood 221 mg/dL (75-99)
[2019-12-01] MEDS: PRAVASTATIN SODIUM 40 MG TAB PO SCH (20:56)
[2019-12-02 07:17] LABS: Glucose,Whole Blood 82 mg/dL (75-99)
[2019-12-02] MEDS: INSULIN ASPART (NovoLOG) 100 UNIT/ML VIAL SQ SCH ×2 (07:32→13:06)
[2019-12-02] MEDS: IPRATROPIUM 0.5 MG/2.5 ML NEBU INHALATION SCH ×3 (08:01→16:06)
[2019-12-02] MEDS: FLUTICASONE 44 MCG INHALER INHALATION SCH (08:01)
[2019-12-02] MEDS: FAMOTIDINE 20 MG TAB PO SCH (08:14)
[2019-12-02] MEDS: ALPRAZolam 0.25 MG TAB PO SCH (08:14)
[2019-12-02] MEDS: LACTOBACILLUS ACIDOPH & BULGAR 1 EACH PACKET PO SCH (08:14)
[2019-12-02] MEDS: ASPIRIN 81 MG PO SCH (08:14)
[2019-12-02] MEDS: APIXABAN 5 MG TAB PO SCH (08:14)
[2019-12-02] MEDS: FERROUS SULFATE 325 MG TAB PO SCH (08:14)
[2019-12-02] MEDS: METOPROLOL TARTRATE 50 MG TAB PO SCH ×2 (08:14→17:35)
[2019-12-02] MEDS: NYSTATIN 100,000 UNIT/ML SUSP 500,000 UNIT/5 ML CUP PO SCH ×2 (08:14→13:06)
[2019-12-02] MEDS: FENOFIBRATE 160 MG TAB PO SCH (08:15)
[2019-12-02] MEDS: PHENAZOPYRIDINE 200 MG TAB PO SCH ×2 (08:15→17:36)
[2019-12-02] MEDS: GLIMEPIRIDE 2 MG TAB PO SCH (08:15)
[2019-12-02 09:54] LABS: Calcium 9.7 mg/dL (8.4-10.2); Potassium 4.7 mmol/L (3.5-5.1)
[2019-12-02 11:27] LABS: Glucose,Whole Blood 178 mg/dL (75-99)
[2019-12-02 11:47] VITALS: BP 110/61; TEMP 97.9
--- NOTE | 2019-12-02 13:36 | P.PN ---
Subjective Progress Note Date: 12/02/19 Principal diagnosis: shortness of breath 79-year-old white female patient with known history of chronic obstructive pulmonary disease on home oxygen at 2-1/2 L/m, previous history of smoking, diabetes mellitus type 2, previous episode of pneumonia, hypertension, hyperlipidemia, GERD/reflux, with recent history of hospitalization at [facility] in the beginning of September for bilateral pneumonia, and small bilateral pleural effusions. Patient was treated with Rocephin and azithromycin during admission. On 11/24/2019 patient presented to this hospital for evaluation of shortness of breath. admission chest x-ray showed prominence and central vascularity and increased interstitium, and bilateral pleural effusions. she was hypoxic, she was placed on 6 L of oxygen and subsequently on BiPAP support at pressures of 12 and 5 and FiO2 of 40%. patient was in A. fib with RVR. lab work showed appointments on chronically 0.3, hemoglobin of 10.3, platelet count was 385, lymphocytes 1.5, INR is 1.2, electrolytes were within normal limits, B1 is 23, creatinine is 1.01, glucose was 224, plasma lactic acid was 0.8, troponin topped out at 0.075, proBNP was 7190, TSH was 0.328. she was started on IV Lasix at 40 mg every 12 hours which was subsequently changed to Lasix infusion at 10 mg per hour. Patient is in -3 L net fluid balance over the last 24 hours, this morning she is feeling better, breathing easier, remains on BiPAP support, and she would like to trial off the BiPAP support. echocardiogram is pending, COVID 19 testing is in progress, and the results are pending at this time. On 11/26/2019 patient seen in follow-up in the selective care unit. She is awake and alert, remains on BiPAP support, with pressures 12/5, and FiO2 of 40%, her pulse ox is 99%, patient has been tolerating trials off the BiPAP support on high flow nasal cannula. Patient remains on IV Lasix drip at 10 mg per hour, IV 0.9 normal saline at 5 ML per hour, remains dyspneic, patient has been and 1.2 L negative fluid balance over the last 24 hours. 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 She remains on BiPAP support, with pressures of 12/5, and FiO2 of 40%. This morning I received a call from the nurse about total critical serum CO2 of 43, and blood gas was ordered in view of reported lethargy. Blood gas showed pO2 of 78, pCO2 of 73, and pH of 7.45, consistent with chronic hypercapnic respiratory failure. Patient is on oral Lasix, 40 mg twice daily, she has been 1.7 L and urine output over the last 24 hours, she is on breathing treatments. No fever or chills. Hemodynamically stable, sinus rhythm on the monitor with frequent PACs. Yesterday's chest x-ray showed stable bilateral infiltrates and pleural effusion with diffuse interstitial pattern. During our evaluation patient is easily arousable, she is answering questions appropriately, appears to be in no acute distress, lung sounds are diminished at the bases, patient is agreeable to try high flow nasal cannula trial. On 11/28/2019 patient seen in follow-up on selective care unit. Patient is sleepy, but is in no acute distress, patient is currently on high flow nasal cannula, she did wear BiPAP through the night. She continues on oral diuretics, 40 mg twice daily, she is in -900 mL fluid balance over the last 24 hours, no fever or chills, no complaints of chest pain. Today's chest x-ray shows a slight increase in the moderately sized left pleural effusion with adjacent atelectasis and consolidation, and trace right pleural effusion. Today's labs have been reviewed, showing sodium of 141, potassium 3.3, chloride is 85, CO2 is 46, BUN of 48, and creatinine is 1.21. Patient has had some worsening of her renal function, she is developing metabolic alkalosis possibly related to diuretics and volume contraction. We'll cut back the Lasix dose to 20 mg once daily On 12/02/2019 patient seen in follow-up on general medical floor. She is awake and alert, she is working with physical therapy, she's been getting up to the bedside commode quite independently, and doing fairly well, no worsening dyspnea, lung sounds are clear, she is on 2 L of oxygen with a pulse ox and her sat is 92%. No complaints of chest pain, no acute events overnight. Patient remains on Eliquis for chronic atrial fibrillation, she is on breathing treatments, empiric antibiotics in the form of Rocephin, and patient's diuretics have been placed on hold as well as the Bill inhibitors. These labs have been reviewed, showing improvement of patient's renal profile, and BUN is at 99 and creatinine is down to 1.74, serum sodium is 136, potassium is 4.7, chloride is 89, and CO2 is improved from yesterday's exam and is down to 39 on today's labs. Urinalysis was sent yesterday showing evidence of urinary tract infection, urine culture is pending. Recommend pneumatic coverage as the form of Rocephin Objective - Vital Signs Vital signs: Vital Signs Temp 97.9 F 12/02/19 11:20 Pulse 88 12/02/19 12:01 Resp 18 12/02/19 11:20 BP 110/61 12/02/19 11:20 Pulse Ox 92 L 12/02/19 11:20 Intake & Output 12/01/19 12/02/19 12/02/19 18:59 06:59 18:59 Intake Total 720 Balance 720 Weight 73.4 kg Intake: Oral 720 Other: Voiding Method Bedside Commode Bedside Commode Bedside Commode # Voids 2 2 3 # Bowel Movements 2 2 - Exam GENERAL EXAM: Lethargic 71-year-old white female, 2 L of oxygen with a pulse ox of 92% HEAD: Normocephalic/atraumatic. EYES: Normal reaction of pupils, equal size. Conjunctiva pink, sclera white. NOSE: Clear with pink turbinates. THROAT: No erythema or exudates. NECK: No masses, no JVD, no thyroid enlargement, no adenopathy. CHEST: No chest wall deformity. Symmetrical expansion. LUNGS: diminished air entry with no crackles, wheeze, rhonchi or dullness. CVS: Irregular rate and rhythm, normal S1 and S2, no gallops, no murmurs, no rubs ABDOMEN: Soft, nontender. No hepatosplenomegaly, normal bowel sounds, no guarding or rigidity. EXTREMITIES: No clubbing, no edema, no cyanosis, 2+ pulses and upper and lower extremities. MUSCULOSKELETAL: Muscle strength and tone normal. SPINE: No scoliosis or deformity SKIN: No rashes CENTRAL NERVOUS SYSTEM: Alert and oriented -3. No focal deficits, tone is normal in all 4 extremities. PSYCHIATRIC: Alert and oriented -3. Appropriate affect. Intact judgment and insight. - Labs CBC & Chem 7: 11/26/19 06:55 12/02/19 09:15 Labs: Abnormal Lab Results - Last 24 Hours (Table) 12/01/19 12/01/19 12/01/19 Range/Units 15:30 17:15 20:23 Sodium (137-145) mmol/L Chloride (98-107) mmol/L Carbon Dioxide (22-30) mmol/L BUN (7-17) mg/dL Creatinine (0.52-1.04) mg/dL Glucose (74-99) mg/dL POC Glucose (mg/dL) 197 H 221 H (75-99) mg/dL Urine Appearance Turbid H (Clear) Urine Protein 1+ H (Negative) Urine Blood Moderate H (Negative) Ur Leukocyte Esterase Large H (Negative) Urine RBC 125 H (0-5) /hpf Urine WBC >182 H (0-5) /hpf Urine WBC Clumps Many H (None) /hpf Urine Bacteria Many H (None) /hpf Hyaline Casts 11 H (0-2) /lpf 12/02/19 12/02/19 Range/Units 09:15 11:23 Sodium 136 L (137-145) mmol/L Chloride 89 L (98-107) mmol/L Carbon Dioxide 39 H (22-30) mmol/L BUN 99 H (7-17) mg/dL Creatinine 1.74 H (0.52-1.04) mg/dL Glucose 113 H (74-99) mg/dL POC Glucose (mg/dL) 178 H (75-99) mg/dL Urine Appearance (Clear) Urine Protein (Negative) Urine Blood (Negative) Ur Leukocyte Esterase (Negative) Urine RBC (0-5) /hpf Urine WBC (0-5) /hpf Urine WBC Clumps (None) /hpf Urine Bacteria (None) /hpf Hyaline Casts (0-2) /lpf Microbiology - Last 24 Hours (Table) 12/01/19 15:30 Urine Culture - Preliminary Urine,Voided Assessment and Plan Plan: Assessment: #1. Acute on chronic hypoxic and hypercapnic respiratory failure related to acute exacerbation of congestive heart failure with impaired LV function, and EF of 40-45%, moderate MR, moderate tricuspid regurgitation, and moderately severe pulmonary hypertension and right-sided pressures of 56 Reason mercury #2. Elevated troponins, likely related to acute exacerbation of CHF #3. New onset A. fib with RVR #4. Recent hospitalization for bibasilar pneumonia and bilateral pleural effusions at [facility] in the beginning of October 2019 #5. Advanced COPD with chronic hypoxemic respiratory failure, and patient wears and a half liters of oxygen at home on a regular basis #6. Hypertension #7. Hyperlipidemia #8. Diabetes mellitus #9. GERD/reflux #10. History of tobacco abuse, currently in remission #11. Metabolic alkalosis related to volume contraction and diuretic therapy, diuretics have been placed on hold, renal profile is improving, alkalosis is improving plan: Clinically stable, FiO2 is down to 2 L, has not required BiPAP use, breathing is improving, renal profile is improving, and diuretics remain on hold, metabolic alkalosis is improving, clinically patient is stable, no specific complaints, she is working with physical therapy, tolerating activity well, urine culture is pending, urinalysis showed possibility of urinary tract infection, empiric antibiotic coverage and form of Rocephin I performed a history & physical examination of the patient and discussed their management with my nurse practitioner, Sarah Panda. I reviewed the nurse practitioner's note and agree with the documented findings and plan of care. Lung sounds are positive for diminished breath sounds. The findings and the impression was discussed with the patient. I attest to the documentation by the nurse practitioner. Time with Patient: Less than 30
--- NOTE | 2019-12-02 14:41 | PN ---
PROGRESS NOTE Patient is seen for followup for acute kidney injury. She was admitted with CHF and was diuresed. The patient's blood pressure had been on the lower side. She was maintained on HENRY inhibitors which are currently on hold. Renal function has been improving. Serum creatinine down to 1.7 from peak of 2.2 mg/dL. No complaints today. PHYSICAL EXAMINATION: Blood pressure is 110/61, heart rate 82 per minute, she is afebrile. Examination of the heart S1, S2. Examination of the lungs decreased breath sounds at bases. Abdomen is soft, nontender. Examination of the lower extremities shows trace edema bilaterally. [employer] exam grossly intact. LABS: Show sodium 136, potassium 4.7, BUN 99, creatinine 1.74, chloride 89. CO2 is 39. ASSESSMENT: 1. Acute kidney injury associated with hypotension, hypoperfusion and recent diuresis, currently improved. Okay to resume low-dose loop diuretics. Continue to hold off on HENRY inhibitors for now as blood pressure remains on the lower side. 2. Cardiomyopathy, ejection fraction 40% to 45%. 3. Metabolic alkalosis associated with the recent diuresis, currently improved. 4. New onset atrial fibrillation with RVR, now with controlled ventricular response maintained on Eliquis. 5. Chronic hypoxic respiratory failure with hypercapnia, currently stable. PLAN: Resume low-dose loop diuretics. Okay to discharge patient. Continue to hold off on HENRY inhibitors for now. MMODL / IJN: [id number] /
--- NOTE | 2019-12-02 15:57 | P.DS ---
Providers Date of admission: 11/24/19 09:30 Expected date of discharge: 12/02/19 Attending physician: Jonah Dye Consults: 11/24/19 09:30 Consult Physician Routine Consulting Provider: Winston Escobar Consult Reason/Comments: afib, heart failure Do you want consulting provider notified?: Yes 11/24/19 17:27 Consult Physician Routine Consulting Provider: Kevin Mitchell Consult Reason/Comments: Acute hypoxic respiratory failure Do you want consulting provider notified?: Yes 11/29/19 11:48 Consult Physician Routine Consulting Provider: Pete Lyon Consult Reason/Comments: QUINTIN Do you want consulting provider notified?: Yes Primary care physician: Ajit Osman MD Hospital Course: Final diagnosis -acute hypoxic respiratory failure most probably secondary to congestive heart failure chronic systolic dysfunction with acute exacerbation -Possible acute urinary tract infection -acute renal failure: Secondary to excessive diuresis -congestive heart failure chronic systolic dysfunction EF of around 40-45% -Both hypoxic and hypercapnic respiratory failure -new onset atrial fibrillation with rapid ventricular rate -Hypertension -hyperlipidemia -type 2 diabetes mellitus -Gastroesophageal reflux disease -Sick euthyroid syndrome Discharge disposition Patient is being discharged in a stable condition with guarded prognosis to home. Patient will continue with home care in the outpatient setting. Patient will follow-up with Dr. Ajit Osman upon discharge. Patient also instructed to follow-up with nephrology in the outpatient setting. Patient will continue on a short course of oral antibiotics in the form of Ceftin for the next 3 days along with nystatin oral swish. Patient also continue on 20 mg of oral Lasix daily and instructed to continue holding lisinopril. Total time taken is 35 minutes. History of present illness This is a 79-year-old female who was recently admitted with new onset atrial fibrillation and heart failure exacerbation and was being closely monitored. Echo showing an EF between 40 and 45% along with some pulmonary hypertension. Patient was initiated on Eliquis and metoprolol 3 times a [facility] via [facility] cannula and will continue in the outpatient setting. During hospitalization patient was initially started on BiPAP and initiated on a Lasix drip although creatinine continue to worsen. Nephrology following. Creatinine improved at 1.74 today and will continue on 20 mg of Lasix daily. Patient instructed to continue holding lisinopril and recommend repeat labs in 2-3 days to monitor kidney functions. Patient continued to have some dysuria and burning with frequency of urination and was initiated on pyridium and IV ceftriaxone. Patient will be given a few days of Ceftin along with pyridium upon discharge. Currently no reports of chest pain, palpitations, or worsening shortness of breath. Patient is afebrile. No reports of nausea or vomiting and patient is tolerating diet. On exam vital signs are stable. Temp is 97.9F, pulse is 82, respirations are 18, blood pressure 110/61, oxygen saturation is 92% on 2 L via nasal cannula. C ardio S1, S2 are present. Respiratory shows diminished breath sounds with some scattered rhonchi noted.. Abdomen is soft and nontender. Nervous system shows no focal deficits. Please refer to medication reconciliation sheet for a list of medications. Patient Condition at Discharge: Stable Plan - Discharge Summary Discharge Rx Participant: No New Discharge Prescriptions: New Cefuroxime Axetil [Ceftin] 500 mg PO BID 3 Days #6 tab Apixaban [Eliquis] 5 mg PO BID 30 Days #60 tab Furosemide [Lasix] 20 mg PO DAILY 30 Days #30 tab Metoprolol Tartrate [Lopressor] 50 mg PO TID 30 Days #90 tab Nystatin 100,000 Unit/ml Susp [Mycostatin Oral Susp] 500,000 unit PO QID #120 ml Famotidine [Pepcid] 20 mg PO DAILY 30 Days #30 tab Phenazopyridine [Pyridium] 200 mg PO TID PRN #9 tab PRN Reason: Analgesia Continue L.acidoph,Paracasei, B.lactis [Probiotic] 1 cap PO DAILY [place]-3 Fatty Acids [[place]-3] 1,000 mg PO BID Aspirin EC [Ecotrin Low Dose] 81 mg PO DAILY Ferrous Sulfate [Iron (65 MG Elemental)] 325 mg PO DAILY Calcium Carbonate/Vitamin D3 [Calcium 500-Vit D3 600 Tablet] 1 tab PO DAILY Tiotropium [place] [Spiriva] 1 cap INHALATION RT-DAILY Pravastatin Sodium [Pravachol] 40 mg PO HS Budesonide [Pulmicort Flexhaler] 1 puff INHALATION RT-DAILY metFORMIN HCL [Glucophage] 1,000 mg PO BID Glimepiride [Amaryl] 2 mg PO BID Fluticasone Nasal [place] [Flonase Nasal [place]] 2 spr EA NOSTRIL DAILY PRN PRN Reason: Allergy Symptoms Fenofibrate Nanocrystallized [Fenofibrate] 145 mg PO DAILY Albuterol Inhaler [Ventolin Hfa Inhaler] 1 - 2 puff INHALATION RT-Q4H PRN PRN Reason: Shortness Of Breath C,E,Zinc,Copper 11/Jgpia1m/Lut [Ocuvite Adult 50 Plus Softgel] 1 cap PO DAILY Discontinued Ranitidine HCl [Zantac] 150 mg PO BID Lisinopril [Zestril] 10 mg PO DAILY Diltiazem HCl [Diltiazem HCl 24Hr ER] 120 mg PO DAILY Discharge Medication List Albuterol Inhaler [Ventolin Hfa Inhaler] 1 - 2 puff INHALATION RT-Q4H PRN 11/24/19 [History] Aspirin EC [Ecotrin Low Dose] 81 mg PO DAILY 11/24/19 [History] Budesonide [Pulmicort Flexhaler] 1 puff INHALATION RT-DAILY 11/24/19 [History] C,E,Zinc,Copper 11/Itthk8f/Lut [Ocuvite Adult 50 Plus Softgel] 1 cap PO DAILY 11/24/19 [History] Calcium Carbonate/Vitamin D3 [Calcium 500-Vit D3 600 Tablet] 1 tab PO DAILY 11/24/19 [History] Fenofibrate Nanocrystallized [Fenofibrate] 145 mg PO DAILY 11/24/19 [History] Ferrous Sulfate [Iron (65 MG Elemental)] 325 mg PO DAILY 11/24/19 [History] Fluticasone Nasal [place] [Flonase Nasal [place]] 2 spr EA NOSTRIL DAILY PRN 11/24/19 [History] Glimepiride [Amaryl] 2 mg PO BID 11/24/19 [History] L.acidoph,Paracasei, B.lactis [Probiotic] 1 cap PO DAILY 11/24/19 [History] [place]-3 Fatty Acids [[place]-3] 1,000 mg PO BID 11/24/19 [History] Pravastatin Sodium [Pravachol] 40 mg PO HS 11/24/19 [History] Tiotropium [place] [Spiriva] 1 cap INHALATION RT-DAILY 11/24/19 [History] metFORMIN HCL [Glucophage] 1,000 mg PO BID 11/24/19 [History] Apixaban [Eliquis] 5 mg PO BID 30 Days #60 tab 12/02/19 [Rx] Cefuroxime Axetil [Ceftin] 500 mg PO BID 3 Days #6 tab 12/02/19 [Rx] Famotidine [Pepcid] 20 mg PO DAILY 30 Days #30 tab 12/02/19 [Rx] Furosemide [Lasix] 20 mg PO DAILY 30 Days #30 tab 12/02/19 [Rx] Metoprolol Tartrate [Lopressor] 50 mg PO TID 30 Days #90 tab 12/02/19 [Rx] Nystatin 100,000 Unit/ml Susp [Mycostatin Oral Susp] 500,000 unit PO QID #120 ml 12/02/19 [Rx] Phenazopyridine [Pyridium] 200 mg PO TID PRN #9 tab 12/02/19 [Rx] Follow up Appointment(s)/Referral(s): Chasity Hermosillo MD [STAFF PHYSICIAN] - 1 Week (The office will call you with your appointment time and date after they view your information.) Ajit Osman MD [Primary Care Provider] - 12/03/19 2:45 pm (Please bring discharge paper work with you.) [facility], [NON-STAFF] - Ambulatory/Diagnostic Orders: Basic Metabolic Panel [LAB.AMB] Time Frame: 2 Days, Location: None Selected Patient Instructions/Handouts: Heart Failure (DC), Type 2 Diabetes in Adults: New Diagnosis (DC) Activity/Diet/Wound Care/Special Instructions: Eliquis covered with $38.70 copay; free 30 day coupon applied - script filled at [facility] Activity Limited until follow-up Continue current diet- diabetic and low sodium Continue with Lasix 20 mg daily Continue to hold lisinopril until follow-up with nephrology Follow-up with primary care provider upon discharge Repeat labs in 2-3 days Continue antibiotics for 3 days until finished Follow-up with nephrology in 1-2 weeks Discharge Disposition: HOME SELF-CARE
[2019-12-02 16:08] VITALS: RESP 16
[2019-12-02 16:15] VITALS: PULSE 84
[2019-12-02 17:08] LABS: Glucose,Whole Blood 267 mg/dL (75-99)
== END 2019-12-02 17:47 | disposition home health service (06) | DRG 291 ==
LOC: EC 07:38 → 3SCARD 09:30 → 5NMEDONC 11-29 19:50
PROVIDERS: ADMIT Internal Medicine; ATTEND Internal Medicine
PROC: 5A09457 Assistance with Respiratory Ventilation, 24-96 Consecutive Hours, Continuous Positive Airway Pressure (ICD-10-PCS; principal; 2019-11-24)
DX: I11.0 Hypertensive heart disease with heart failure (principal); J96.21 Acute and chronic respiratory failure with hypoxia; J96.22 Acute and chronic respiratory failure with hypercapnia; I48.20 Chronic atrial fibrillation, unspecified; E87.3 Alkalosis; N17.9 Acute kidney failure, unspecified; J98.11 Atelectasis; E87.2 Acidosis; N39.0 Urinary tract infection, site not specified; I50.23 Acute on chronic systolic (congestive) heart failure; Z11.59 Encounter for screening for other viral diseases; I27.29 Other secondary pulmonary hypertension; I95.9 Hypotension, unspecified; I42.9 Cardiomyopathy, unspecified; J44.9 Chronic obstructive pulmonary disease, unspecified; E11.9 Type 2 diabetes mellitus without complications; E78.5 Hyperlipidemia, unspecified; R00.0 Tachycardia, unspecified; K21.9 Gastro-esophageal reflux disease without esophagitis; F32.9 Major depressive disorder, single episode, unspecified; R79.89 Other specified abnormal findings of blood chemistry; E07.81 Sick-euthyroid syndrome; I08.1 Rheumatic disorders of both mitral and tricuspid valves; T50.1X5A Adverse effect of loop [high-ceiling] diuretics, initial encounter; Z71.3 Dietary counseling and surveillance; Z79.51 Long term (current) use of inhaled steroids; Z79.84 Long term (current) use of oral hypoglycemic drugs; Z79.82 Long term (current) use of aspirin; Z79.899 Other long term (current) drug therapy; Z99.81 Dependence on supplemental oxygen; Z87.891 Personal history of nicotine dependence; Z87.01 Personal history of pneumonia (recurrent); Z90.710 Acquired absence of both cervix and uterus; Z88.6 Allergy status to analgesic agent; Z91.013 Allergy to seafood
CPT/HCPCS: 36415; 36600; 71045; 71046; 76770; 80048; 80053; 81001; 82805; 83605; 83735; 83880; 84439; 84443; 84484; 85025; 85027; 85610; 85730; 87077; 87086; 87186; 87635; 93005; 93306; 94640; 94660; 94760; 96365; 96366; 96367; 96368; 96375; 96376; 99291